=== PATIENT | male | born 2000 | race Caucasian/White ===

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

== ENCOUNTER 2021-08-02 02:30 | Emergency (ER) | payer MEDICAID, SELFPAY ==
[2021-08-02 02:39] VITALS: BMI 41.0
[2021-08-02 02:41] VITALS: BP 151/79; PULSE 78; RESP 16; TEMP 37.1; O2SAT 98
[2021-08-02 02:44] VITALS: BP 151/79
[2021-08-02] MEDS: fluorescein 1 mg Strip EYE-RIGHT (02:50)
[2021-08-02] MEDS: tetracaine 0.5% Op Soln 4 mL Btl 1 DROP EYE-RIGHT (02:50)
--- NOTE | 2021-08-02 02:51 | ED_ITS ---
HPI - Eye Problem General: Chief complaint: Eye Problems Stated complaint: Right eye swollen Time Seen by Provider: 08/02/21 02:45 Source: patient Mode of arrival: ambulatory Limitations: no limitations History of Present Illness: 20-year-old male that states that he fell like a bug flew in his eye roughly 30 minutes ago. He states he has been rubbing that eye and has been having some pain and erythema to the eye since then. Does have some slight lid swelling. Denies any change in his vision denies any pain currently. He has no drainage. He denies any worsening or improving factors. Associated symptoms: Denies fever(s), headache(s), nausea, neck pain or vomiting Review of Systems Const: Denies: fever(s), chills, body aches or change in appetite Eyes: Reports: eye discomfort ENMT: Denies: throat pain or dental pain Card: Denies: chest pain Resp: Denies: dyspnea GI: Denies: abdominal pain, nausea, vomiting or diarrhea : Denies: dysuria Musc: Denies: neck pain or back pain Skin/Breast: Denies: rash Neuro: Denies: headache(s) Psych: Denies: depression René/Lymph: Denies: easy bruising All/Imm: Denies: urticaria PFSH ED PFSH: Medical History Psoriasis Family History Mother Heart failure Father AAA (abdominal aortic aneurysm) Grandfather AAA (abdominal aortic aneurysm) Social History Smoking and tobacco status: former smoker Alcohol intake: never Physical Exam Const: COMMON NORMALS: no acute distress, patient oriented x3 and healthy appearing HENMT: COMMON NORMALS: normocephalic and atraumatic HEAD & SCALP: normocephalic and atraumatic Eye: COMMON NORMALS: Equal, round and reactive pupils present and EOMs intact bilaterally PUPIL: Yes Equal, round and reactive pupils present OTHER: Slight swelling to the right upper eyelid no erythema extraocular movements intact has some erythema to conjunctive a no abrasions or ulcers noted on fluorescein stain Neck/C-Spine: COMMON NORMALS: full ROM and supple Chest: COMMONS NORMALS: normal inspection of the chest Resp: COMMON NORMALS: normal respiratory effort Cardio: COMMON NORMALS: regular rate, regular rhythm and No murmurs present (Cardio) RATE: regular rate RHYTHM: regular rhythm GI: INSPECTION: Yes normal to inspection Extremity: COMMON NORMALS: normal to inspection and full ROM Neuro: COMMON NORMALS: patient oriented x3, moves all extremities and no focal motor deficits Psych: COMMON NORMALS: mental status grossly normal, Normal thought process present and cooperative THOUGHT PROCESS: Normal thought process present Skin: COMMON NORMALS: no rashes or lesions noted and no wounds GENERAL SKIN EXAM: no rashes or lesions noted Course Vital Signs: Vital signs: Vital Signs Temperature 98.8 F 08/02/21 02:41 Pulse Rate 78 08/02/21 02:41 Respiratory Rate 16 08/02/21 02:41 Blood Pressure 151/79 08/02/21 02:44 Pulse Oximetry 98 08/02/21 02:41 MDM - Eye Problem Medical Decision Making Patient presents here with right eye pain and swelling. He had a sensation of foreign body in the eye roughly 30 minutes ago. He does have some swelling of the eyelid could be slight allergic reaction does have erythema to his conjunctive as well no abrasions noted. We will give him Benadryl start him on erythromycin ointment. He has no signs of orbital or preseptal cellulitis. He is to follow-up PCP and return if worsening. Discharge Plan Discharge Patient Disposition: Home Clinical Impression: Eye swelling, right Condition: Stable Prescriptions: New erythromycin 5 mg/gram (0.5 %) ointment 1 applic ophthalmic (eye) Q8H 5 Days Qty: 3.5 0RF No Action amlodipine 10 mg tablet 10 mg PO DAILY 0RF hydrocortisone 2.5 % cream 1 applic topical BID Qty: 30 2RF Rx Instructions: to face no more than 2 wks / mo for flares clobetasol 0.05 % ointment 1 applic topical BID 14 Days Qty: 60 3RF Rx Instructions: to affected areas on arms and trunk no more than 2 wks/mo prn alternating with triamcinolone triamcinolone acetonide 0.1 % ointment 1 applic topical BID Qty: 453.6 1RF Rx Instructions: to arms and trunk BID alt. with clobetasol as needed for flares no more than 2 wks/mo Discharge Orders: Discharge ED (Routine); Ordered 08/02/21 Ordered By: Krisat Rollins Referrals: Moon Amaral DO [Primary Care Provider] - 1-3 days Discharge Diet: Advance as tolerated Discharge Activity: Resume usual activity Patient Instructions: Eye Pain (ED) Coding Level of Care Code ED Tufter Operator for Donna Perry
[2021-08-02] MEDS: diphenhydrAMINE 50 mg Capsule PO (02:57)
== END 2021-08-02 02:58 | disposition home or self-care (01) ==
PROVIDERS: Emergency Provider Emergency Medicine; PCP Family Medicine
DX: H57.89 Other specified disorders of eye and adnexa (principal); Z87.891 Personal history of nicotine dependence
CPT/HCPCS: 99283; Q0163

== ENCOUNTER 2022-05-13 14:44 | Emergency (ER) | payer MEDICAID, SELFPAY ==
[2022-05-13 14:51] VITALS: BP 155/92; PULSE 92; RESP 18; TEMP 36.7; O2SAT 100
--- NOTE | 2022-05-13 14:54 | ECG_ITS ---
[facility] Test Date: 2022-05-13 Pat Name: Agustin Cedeno Department: Room: Gender: Male Bending Roll Hand: : 2000 Requested By: Song Adorno Order Number: [id number] Gene MD: Bam Khan Measurements Intervals [place] Rate: 88 P: 52 CA: 148 QRS: 52 QRSD: 88 T: 50 QT: 344 QTc: 417 Interpretive Statements SINUS RHYTHM POSSIBLE ANTERIOR MYOCARDIAL INFARCTION , OF INDETERMINATE AGE [30 ms Q WAVE IN V3/V4, OR R < 0.2 mV IN V4] INTERPRETATION BASED ON A DEFAULT AGE OF 40 YEARS Compared to ECG 01/12/2018 23:18:26 Myocardial infarct finding now present Electronically Signed On 05-14-2022 19:01:45 CDT by Bam Khan [id number]
--- NOTE | 2022-05-13 15:01 | XRR_ITS ---
PROCEDURE INFORMATION: Exam: XR Chest Exam date and time: 05/13/2022 3:04 PM Age: 21 years old Clinical indication: Other: Chest pain; Additional info: Dyspnea/cough TECHNIQUE: Imaging protocol: Radiologic exam of the chest. Views: 1 view. COMPARISON: CR XR chest 2V* [id number] 01/12/2018 11:10 PM FINDINGS: Lungs: Unremarkable. No consolidation. Pleural spaces: Unremarkable. No pleural effusion. No pneumothorax. Heart/Mediastinum: Unremarkable. No cardiomegaly. Bones/joints: Unremarkable. XR/XR chest 1V portable [id number] IMPRESSION: No acute findings.
--- NOTE | 2022-05-13 15:06 | ED_ITS ---
HPI - Chest Pain General: Chief Complaint: Chest Pain Stated Complaint: CP Time Seen by Provider: 05/13/22 14:57 Source: patient Mode of arrival: ambulatory History of Present Illness: 21-year-old male presents emergency complaining of chest pain rating up center of his chest towards his neck. Is been going on for the last several days has not noticed anything that exacerbates or relieves it he does not get particular diaphoretic or short of breath or nauseous with it. No known history of coronary artery disease. He does have a history of psoriasis he is on amlodipine for hypertension. MD complaint: chest pain Onset (ago): day(s) Timing of current episode: episodic Prior episodes: Yes Onset: during rest Pain location: substernal Pain radiation: neck Severity: mild Quality: aching and heaviness Relieving factors: nothing Exacerbating factors: nothing Associated symptoms: Deny abdominal pain, diaphoresis, dyspnea, fever(s), leg edema, nausea, palpitations, sense of impending doom, syncope or vomiting Review of Systems Const: Denies: fever(s), chills, fatigue, malaise or diaphoresis ENMT: Denies: throat pain, ear or mastoid pain, nasal discharge or nasal congestion Card: Reports: chest pain; Denies: palpitations, irregular heart rhythm, edema or syncope Resp: Denies: dyspnea GI: Denies: abdominal pain, nausea or vomiting : Denies: flank pain, dysuria, urinary frequency or urinary urgency Skin/Breast: Denies: rash or pruritus PFSH ED PFSH: Medical History Psoriasis Family History Mother Heart failure Father AAA (abdominal aortic aneurysm) Grandfather AAA (abdominal aortic aneurysm) Social History Smoking and tobacco status: former smoker Alcohol intake: never Physical Exam Const: GENERAL APPEARANCE: cooperative and comfortable ORIENTATION/CONSCIOUSNESS: Yes awake, Yes oriented to person, Yes oriented to place and Yes oriented to time HENMT: COMMON NORMALS: normocephalic, atraumatic and hearing grossly normal bilaterally HEAD & SCALP: normocephalic and atraumatic Resp: COMMON NORMALS: normal respiratory effort, No retractions, No use of accessory muscles and clear to auscultation bilaterally AUSCULTATION: clear to auscultation bilaterally Cardio: COMMON NORMALS: regular rate, regular rhythm and No murmurs present (Cardio) RATE: regular rate RHYTHM: regular rhythm GI: COMMON NORMALS: Soft to palpation and No hepatosplenomegaly present AUSCULTATION: Yes normoactive bowel sounds PALPATION: Yes Soft to palpation, No Tenderness to palpation present (GI), No Guarding due to palpation present (GI) and Yes No hepatosplenomegaly present Extremity: COMMON NORMALS: normal to inspection, capillary refill normal, no clubbing, cyanosis or edema, no calf tenderness and no pedal edema Neuro: SENSORIUM/ORIENTATION: Yes oriented to person, Yes oriented to place and Yes oriented to time Skin: COMMON NORMALS: no rashes or lesions noted GENERAL SKIN EXAM: no rashes or lesions noted Course Vital Signs: Vital signs: Vital Signs Temperature 98.1 F 05/13/22 14:51 Pulse Rate 78 05/13/22 16:38 Respiratory Rate 18 05/13/22 16:38 Blood Pressure 132/78 05/13/22 16:38 Pulse Oximetry 99 05/13/22 15:09 Oxygen Delivery Me thod 05/13/22 14:51 MDM - Chest Pain Medical Decision Making Atypical chest pain troponin is negative EKG is unremarkable. Discharge patient home start him on Protonix and recheck with his primary care doctor. Medical Records I reviewed the patient's medical records. Lab Data I reviewed the patient's lab results. 05/13/22 15:02 05/13/22 15:02 Radiology Impressions Chest X-Ray 05/13/22 15:01 IMPRESSION: No acute findings. Laboratory Results WBC 8.1 10^3/uL (4.5-13.0) 05/13/22 15:02 RBC 5.51 10^6/uL (4.1-5.3) H 05/13/22 15:02 Hgb 15.8 g/dL (11.7-16.6) 05/13/22 15:02 Hct 46.2 % (42.0-52.0) 05/13/22 15:02 MCV 83.8 fl (80-94) 05/13/22 15:02 MCH 28.7 pg (28.0-34.0) 05/13/22 15:02 MCHC 34.2 g/dL (30.0-36.0) 05/13/22 15:02 RDW 12.1 % (12.1-15.1) 05/13/22 15:02 Plt Count 299 10^3/cmm (130-400) 05/13/22 15:02 MPV 11.2 fL (7.4-10.4) H 05/13/22 15:02 Neut % (Auto) 56.0 % 05/13/22 15:02 Lymph % (Auto) 29.8 % 05/13/22 15:02 [place] % (Auto) 9.5 % 05/13/22 15:02 Eos % (Auto) 3.7 % 05/13/22 15:02 Baso % (Auto) 0.6 % 05/13/22 15:02 Neut # (Auto) 4.53 10^3/uL (1.8-8.0) 05/13/22 15:02 Lymph # (Auto) 2.4 10^3/uL (1.5-6.5) 05/13/22 15:02 [place] # (Auto) 0.8 10^3/uL (0.2-0.9) 05/13/22 15:02 Eos # (Auto) 0.3 10^3/uL (0.0-0.8) 05/13/22 15:02 Baso # (Auto) 0.1 10^3/uL (0.0-0.1) 05/13/22 15:02 Nucleated RBC % (auto) 0 % 05/13/22 15:02 Nucleated RBCs # 0.0 /100WBC 05/13/22 15:02 Sodium 136 mmol/L (136-145) 05/13/22 15:02 Potassium 3.6 mmol/L (3.5-5.1) 05/13/22 15:02 Chloride 100 mmol/L (98-107) 05/13/22 15:02 Carbon Dioxide 25 mmol/L (22-29) 05/13/22 15:02 Anion Gap 14.6 (5-19) 05/13/22 15:02 BUN 13 mg/dL (6-20) 05/13/22 15:02 Creatinine 0.8 mg/dL (0.7-1.2) 05/13/22 15:02 GFR Calculation 123.2 mL/min (90-130) 05/13/22 15:02 Glucose 86 mg/dL (65-115) 05/13/22 15:02 Calculated Osmolality 281 mOsm/kg (285-295) L 05/13/22 15:02 Calcium 9.0 mg/dL (8.5-10.5) 05/13/22 15:02 Total Bilirubin 0.4 mg/dL (0.15-1.2) 05/13/22 15:02 AST 22 U/L (0-40) 05/13/22 15:02 ALT 26 U/L (0-41) 05/13/22 15:02 Alkaline Phosphatase 86 U/L (40-130) 05/13/22 15:02 Troponin T Gen 5 ng/L 6 ng/L (0-15) 05/13/22 15:02 Total Protein 7.8 g/dL (6.6-8.7) 05/13/22 15:02 Albumin 4.4 g/dL (3.5-5.2) 05/13/22 15:02 Globulin 3.4 g/dL (1.3-4.6) 05/13/22 15:02 Discharge Plan Discharge Patient Disposition: Home Clinical Impression: Atypical chest pain Condition: Stable Prescriptions: New pantoprazole 40 mg tablet,delayed release (DR/EC) 40 mg PO QAM 28 Days Qty: 28 0RF No Action amlodipine 10 mg tablet 10 mg PO DAILY hydrocortisone 2.5 % cream 1 applic topical BID Qty: 30 2RF Rx Instructions: to face no more than 2 wks / mo for flares clobetasol 0.05 % ointment 1 applic topical BID 14 Days Qty: 60 3RF Rx Instructions: to affected areas on arms and trunk no more than 2 wks/mo prn alternating with triamcinolone triamcinolone acetonide 0.1 % ointment 1 applic topical BID Qty: 453.6 1RF Rx Instructions: to arms and trunk BID alt. with clobetasol as needed for flares no more than 2 wks/mo Discharge Orders: Discharge ED (Routine); Ordered 05/13/22 Ordered By: Song Cheng Referrals: Moon Amaral, [Primary Care Provider] - Discharge Diet: Usual diet Discharge Activity: Increase activity as tolerated Patient Instructions: Opioid Safety, Pain Management Activity Restrictions/Additional Instructions: You are seen today for chest pain your chest x-ray EKG and laboratory tests were unremarkable. Recommend you can continue your current medications for your blood pressure recheck with your primary care doctor within the next week we will also add a medicine for your stomach pantoprazole 40 mg daily if any worsening or change symptoms return. Coding Level of Care Code ED Research Administrator for Donna Perry
[2022-05-13 15:09] VITALS: BP 162/89; PULSE 95; RESP 16; O2SAT 99
[2022-05-13 15:11] LABS: Basophils # 0.1 10^3/uL (0.0-0.1); Basophils % 0.6 %; Eosinophils # 0.3 10^3/uL (0.0-0.8); Eosinophils % 3.7 %; Hematocrit 46.2 % (42.0-52.0); Hemoglobin 15.8 g/dL (11.7-16.6); Lymphocytes # 2.4 10^3/uL (1.5-6.5); Lymphocytes % 29.8 %; Mean Corpuscular HGB Conc 34.2 g/dL (30.0-36.0); Mean Corpuscular Hemoglobin 28.7 pg (28.0-34.0); Mean Corpuscular Volume 83.8 fl (80-94); Mean Platelet Volume 11.2 fL (7.4-10.4); Monocytes # 0.8 10^3/uL (0.2-0.9); Monocytes % 9.5 %; Neutrophils # 4.53 10^3/uL (1.8-8.0); Nucleated Red Blood Cells % 0 %; Platelet Count 299 10^3/cmm (130-400); Red Blood Count 5.51 10^6/uL (4.1-5.3); Red Cell Distribution Width 12.1 % (12.1-15.1); White Blood Count 8.1 10^3/uL (4.5-13.0)
[2022-05-13] MEDS: lidocaine 2% viscous 15 ML, aluminum-mag hydrox-simethicon 30 ML, sucralfate oral liq 1 GM PO (15:32)
[2022-05-13 15:40] LABS: Alanine Aminotransferase 26 U/L (0-41); Albumin Level 4.4 g/dL (3.5-5.2); Alkaline Phosphatase 86 U/L (40-130); Aspartate Amino Transferase 22 U/L (0-40); Blood Urea Nitrogen 13 mg/dL (6-20); Carbon Dioxide 25 mmol/L (22-29); Chloride 100 mmol/L (98-107); Globulin 3.4 g/dL (1.3-4.6); Glomerular Filtration Rate 123.2 mL/min (90-130); Glucose 86 mg/dL (65-115); Osmolality Calculated 281 mOsm/kg (285-295); Sodium 136 mmol/L (136-145); Total Bilirubin 0.4 mg/dL (0.15-1.2); Total Protein 7.8 g/dL (6.6-8.7)
[2022-05-13 15:41] LABS: Troponin T (5th) Once 6 ng/L (0-15)
[2022-05-13 15:42] LABS: Anion Gap 14.6 (5-19); Potassium 3.6 mmol/L (3.5-5.1)
[2022-05-13 16:38] VITALS: BP 132/78; PULSE 78; RESP 18
== END 2022-05-13 16:40 | disposition home or self-care (01) ==
PROVIDERS: Emergency Provider Family Medicine; PCP Family Medicine
DX: R07.89 Other chest pain (principal); Z87.891 Personal history of nicotine dependence
CPT/HCPCS: 71045; 80053; 84484; 85025; 93005; 99285

== ENCOUNTER 2022-08-21 20:34 | Emergency (ER) | payer MEDICAID, SELFPAY ==
[2022-08-21 20:36] VITALS: BP 161/80; PULSE 98; RESP 18; TEMP 37.1; O2SAT 97; BMI 44.1
--- NOTE | 2022-08-21 20:53 | W.ED.SKABFB ---
HPI - Skin/Abscess/Foreign Bdy General: Chief complaint: Skin/Abscess/Foreign Body Stated complaint: Rash on arms and back Time Seen by Provider: 08/21/22 20:45 Source: patient Mode of arrival: ambulatory Limitations: no limitations History of Present Illness: Patient presents emergency department today for evaluation treatment of burning, itching, and urticaria of the skin. Patient states he was outside in the field and went to lay down. He states after only 3 or 4 seconds on the ground he felt sharp senior managing director his neck and had instant pain and poking sensation down his back. Patient then developed itching and painful spots/whelps on his extremities and his back. Patient denies difficulty breathing. He states he is only ever had an allergic reaction to penicillin in the past. Review of Systems General: Reports: 10 or more systems reviewed and unremarkable except in HPI and below PFSH ED PFSH: Medical History Psoriasis Family History Mother Heart failure Father AAA (abdominal aortic aneurysm) Grandfather AAA (abdominal aortic aneurysm) Social History Smoking and tobacco status: former smoker Alcohol intake: never Substance/Drug Use: never Physical Exam Const: COMMON NORMALS: no acute distress, average body habitus and patient oriented x3 HENMT: COMMON NORMALS: normocephalic, atraumatic, hearing grossly normal bilaterally, Normal external nose present and moist oral mucous membranes HEAD & SCALP: normocephalic and atraumatic NOSE: Normal external nose present Eye: COMMON NORMALS: Equal, round and reactive pupils present, EOMs intact bilaterally and conjunctivae normal CONJUNCTIVA: Yes conjunctivae normal PUPIL: Yes Equal, round and reactive pupils present Neck/C-Spine: COMMON NORMALS: no JVD Lymph: LYMPHATIC: no lymphadenopathy noted Resp: COMMON NORMALS: normal respiratory effort, No retractions and No use of accessory muscles Cardio: COMMON NORMALS: no JVD, regular rate and regular rhythm RATE: regular rate RHYTHM: regular rhythm GI: COMMON NORMALS: Normal to inspection, nondistended, normoactive bowel sounds present : COMMON NORMALS: Yes no CVA tenderness BLADDER/KIDNEY EXAM: Yes no CVA tenderness Back/Pelvis: COMMON NORMALS: no CVA tenderness and thoraco-lumbar ROM normal Extremity: COMMON NORMALS: normal to inspection, full ROM and capillary refill normal Neuro: COMMON NORMALS: patient oriented x3 Psych: COMMON NORMALS: mental status grossly normal, Normal thought process present, cooperative, normal affect and activity/motor behavior normal THOUGHT PROCESS: Normal thought process present Skin: NARRATIVE SKIN EXAM: Patient has diffuse urticaria along his back and upper extremities. No angioedema. Patient also has what appears to be psoriasis on his forearms bilaterally. Course Vital Signs: Vital signs: Vital Signs Temperature 98.7 F 08/21/22 20:36 Pulse Rate 98 08/21/22 20:36 Respiratory Rate 18 08/21/22 20:36 Blood Pressure 161/80 08/21/22 20:36 Pulse Oximetry 97 08/21/22 20:36 Oxygen Delivery Me thod Room Air 08/21/22 20:36 MDM - Skin/Abscess/Foreign Bdy Medicial Decision Making Patient shows no signs of angioedema and airway appears preserved. At this time, I do not think epinephrine is required. However, due to the diffuse nature of the urticaria we did treat with IV medication. Patient was observed for approximately 30 minutes after IV administration and had significant if not near complete resolution of symptoms with treatment. We did discuss rebound and the need for continued treatment for the next few days. Patient was given a prescription for Pepcid and prednisone and encouraged antihistamine use as well. Gave him strict return precautions. He is to go home and shower and wash all clothing items that were worn in the field this evening. Patient verbalized understanding and agreement to treatment plan. Differential Diagnosis Likely viral exanthem, dermatophytosis, urticaria, eczema, insect bites and contact dermatitis Discharge Plan Discharge Patient Disposition: Home Clinical Impression: Urticaria Condition: Stable Prescriptions: New prednisone 20 mg tablet 20 mg PO BID 5 Days Qty: 10 0RF Pepcid 20 mg tablet 20 mg PO BID 5 Days Qty: 10 0RF No Action amlodipine 10 mg tablet 10 mg PO DAILY hydrocortisone 2.5 % cream 1 applic topical BID Qty: 30 2RF Rx Instructions: to face no more than 2 wks / mo for flares clobetasol 0.05 % ointment 1 applic topical BID 14 Days Qty: 60 3RF Rx Instructions: to affected areas on arms and trunk no more than 2 wks/mo prn alternating with triamcinolone triamcinolone acetonide 0.1 % ointment 1 applic topical BID Qty: 453.6 1RF Rx Instructions: to arms and trunk BID alt. with clobetasol as needed for flares no more than 2 wks/mo Discharge Orders: Discharge ED (Routine); Ordered 08/21/22 Ordered By: Theresa Salazar Referrals: Moon Amaral DO [Primary Care Provider] - Discharge Diet: Usual diet Discharge Activity: Increase activity as tolerated Patient Instructions: Contact Dermatitis (ED) Activity Restrictions/Additional Instructions: Take a shower as soon as you get home and be sure that you wash any hats, clothing items, shoes, socks, etc. that you have been wearing out in the field today. Due to the possibility of a return of your reaction as the medication begins to wear off, we are treating you for the next several days. In addition to the medication provided to you we also recommend taking a daily Zyrtec/Ailyn/Claritin in addition to Benadryl. Be aware the Benadryl can make you drowsy and tired. If for any reason you have return of swelling-especially swelling of the face, lips, tongue, or throat or any difficulty breathing you need to be seen and reevaluated in the ER. Coding Level of Care Code ED Meat Processing Center Manager for Donna Perry
[2022-08-21] MEDS: diphenhydrAMINE 50 mg/mL SDV 1mL IVP (20:54)
[2022-08-21] MEDS: dexamethasone 10 mg/mL INJ IM (20:54)
[2022-08-21] MEDS: famotidine 20 mg/2 mL INJ 40 MG IVP (20:54)
== END 2022-08-21 22:32 | disposition home or self-care (01) ==
PROVIDERS: Emergency Provider Physician Assistant; PCP Family Medicine
DX: L50.9 Urticaria, unspecified (principal); Z87.891 Personal history of nicotine dependence
CPT/HCPCS: 96372; 96374; 96375; 99284; J1100; J1200; J3490

== ENCOUNTER 2022-12-17 21:49 | Emergency (ER) | payer MEDICAID, SELFPAY ==
[2022-12-17 21:55] VITALS: PULSE 78; RESP 18; TEMP 36.7; O2SAT 99; BMI 42.5
[2022-12-17 22:40] VITALS: BP 195/105; PULSE 95; RESP 15; O2SAT 98
--- NOTE | 2022-12-17 23:15 | ED_ITS ---
HPI - Dental/Oral General: Chief complaint: Dental/Oral Stated complaint: dental pain Time Seen by Provider: 12/17/22 22:20 History of Present Illness: Patient is a 22-year-old male with a past medical history significant for hypertension who presents to the emergency department for evaluation of left upper dental pain. Patient reports that he has had a cracked tooth for some time now, however, today he started to develop dental pain. He currently rates his pain as a 6 out of 10 in severity that he describes as a throbbing sensation. admits to associated nausea. Patient states that he does have an appointment with a dentist in January. He denies fever, chills, excessive drooling, painful tongue movements, throat swelling, difficulty breathing, lightheadedness, dizziness, or any other associated symptoms. No other complaints at this time. Associated symptoms: Denies ear or mastoid pain, fever(s) or odynophagia Review of Systems General: Reports: 10 or more systems reviewed and unremarkable except in HPI and below Const: Denies: fever(s) or chills Eyes: Denies: change in vision, blurry vision, eye discharge or eye redness ENMT: Reports: dental pain; Denies: throat pain, odynophagia, ear or mastoid pain or ear discharge Card: Denies: chest pain or palpitations Resp: Denies: dyspnea, productive cough, non-productive cough or wheezing GI: Denies: abdominal pain, nausea, vomiting, diarrhea or constipation : Denies: dysuria Musc: Denies: neck pain, back pain or extremity pain Skin/Breast: Denies: rash Neuro: Denies: headache(s), numbness in extremities or weakness in extremities PFSH ED PFSH: Medical History Psoriasis Family History Mother Heart failure Father AAA (abdominal aortic aneurysm) Grandfather AAA (abdominal aortic aneurysm) Social History Smoking and tobacco/nicotine status: former use of tobacco/nicotine Alcohol intake: never Substance/Drug Use: never Physical Exam Const: COMMON NORMALS: no acute distress and patient oriented x3 HENMT: OTHER: Tenderness to palpation of approximately the 26 tooth. Posterior oropharynx clear without swelling, lesions, erythema, or exudates. No swelling or erythema is noted to tongue or floor of the mouth. No evidence of Juvenal's angina, retropharyngeal abscess, or peritonsillar abscess Eye: COMMON NORMALS: Equal, round and reactive pupils present, EOMs intact bilaterally and conjunctivae normal CONJUNCTIVA: Yes conjunctivae normal PUPIL: Yes Equal, round and reactive pupils present Neck/C-Spine: COMMON NORMALS: full ROM, no lymphadenopathy and supple Chest: COMMONS NORMALS: normal inspection of the chest Resp: COMMON NORMALS: normal respiratory effort, No retractions, No use of accessory muscles and clear to auscultation bilaterally AUSCULTATION: clear to auscultation bilaterally Cardio: COMMON NORMALS: regular rate, regular rhythm, No gallops present (Cardio), No clicks present (Cardio), No murmurs present (Cardio) and No rub (Cardio) RATE: regular rate RHYTHM: regular rhythm Extremity: OTHER: Moving bilateral upper and lower extremities without weakness or deficit. Neuro: COMMON NORMALS: patient oriented x3 OTHER: Sensation intact in the bilateral upper and lower extremities. Course Vital Signs: Vital signs: Vital Signs Temperature 98.1 F 12/17/22 21:55 Pulse Rate 95 12/17/22 22:40 Respiratory Rate 15 12/17/22 22:40 Blood Pressure 195/105 12/17/22 22:40 Pulse Oximetry 98 12/17/22 22:40 Oxygen Delivery Me thod Room Air 12/17/22 22:40 MDM - Dental/Oral Medical Decision Making On physical examination patient is nontoxic and in no acute distress. Vital signs remained stable throughout the ED course. Patient is afebrile. On exam no evidence of retropharyngeal abscess, peritonsillar abscess, or Juvenal angina. I will treat with antibiotics and have the patient follow-up with a local dentist. Patient stated understanding of all discharge instructions and was agreeable to the plan of care. Differential diagnosis includes but is not limited to periapical abscess, retropharyngeal abscess, peritonsillar abscess, Juvenal angina, cracked tooth, gingivitis No radiology studies performed this visit Discharge Plan Discharge Patient Disposition: Home Clinical Impression: Dental infection Condition: Stable Prescriptions: New diclofenac sodium 75 mg tablet,delayed release (DR/EC) 75 mg PO BID 5 Days Qty: 10 0RF clindamycin HCl 300 mg capsule 300 mg PO TID 7 Days Qty: 21 0RF No Action amlodipine 10 mg tablet 10 mg PO DAILY hydrocortisone 2.5 % cream 1 applic topical BID Qty: 30 2RF Rx Instructions: to face no more than 2 wks / mo for flares clobetasol 0.05 % ointment 1 applic topical BID 14 Days Qty: 60 3RF Rx Instructions: to affected areas on arms and trunk no more than 2 wks/mo prn alternating with triamcinolone triamcinolone acetonide 0.1 % ointment 1 applic topical BID Qty: 453.6 1RF Rx Instructions: to arms and trunk BID alt. with clobetasol as needed for flares no more than 2 wks/mo amlodipine 5 mg tablet 5 mg Discharge Orders: Discharge ED (Routine); Ordered 12/17/22 Ordered By: Andrei An Referrals: Moon Amaral DO [Primary Care Provider] - Patient Instructions: Dental Abscess (ED) Activity Restrictions/Additional Instructions: A prescription of diclofenac was sent to pharmacy to be picked up. Take medication as prescribed. Do not take ibuprofen or other nonsteroidal anti- inflammatories while taking this medication. Take antibiotic as prescribed. Follow-up with a dentist as soon as possible. Call your primary care provider tomorrow with an update of your symptoms and to schedule appointment for further management/evaluation. Return to the emergency department for any rapid or worsening symptoms to include but not limited to difficulties breathing, excessive drooling, throat swelling, fever, lightheadedness, dizziness, nausea, vomiting, or as needed. Coding Level of Care Code ED Production Counter for Donna Perry
[2022-12-17] MEDS: clindamycin 150 mg Capsule 300 MG PO (23:23)
[2022-12-17] MEDS: ketorolac 30 mg/mL INJ IM (23:23)
[2022-12-17 23:38] VITALS: BP 177/88; PULSE 95; RESP 15; O2SAT 98
== END 2022-12-17 23:38 | disposition home or self-care (01) ==
PROVIDERS: Emergency Provider Physician Assistant; PCP Family Medicine
DX: K04.7 Periapical abscess without sinus (principal); Z87.891 Personal history of nicotine dependence
CPT/HCPCS: 96372; 99284; J1885

== ENCOUNTER 2023-07-09 23:24 | Emergency (ER) | payer MEDICAID, SELFPAY ==
[2023-07-09 23:33] VITALS: BP 154/104; PULSE 94; RESP 15; TEMP 36.7; O2SAT 99; BMI 42.5
--- NOTE | 2023-07-09 23:42 | ECG_ITS ---
[facility] Test Date: 2023-07-10 Pat Name: Agustin Cedeno Department: Room: Gender: Male [employer]: : 2000 Requested By: Bo Serrano Order Number: [id number] Mills MD: Neo Sandra M.D. Measurements Intervals [place] Rate: 83 P: 40 OK: 183 QRS: 37 QRSD: 83 T: 32 QT: 354 QTc: 416 Interpretive Statements SINUS RHYTHM Compared to ECG 05/13/2022 14:50:47 Myocardial infarct finding no longer present Electronically Signed On 07-10-2023 16:53:03 CDT by Neo Sandra M.D. [id number]
--- NOTE | 2023-07-09 23:42 | XRR_ITS ---
PROCEDURE INFORMATION: Exam: XR Chest Exam date and time: 07/09/2023 11:48 PM Age: 22 years old Clinical indication: Angina; Additional info: Cp/htn TECHNIQUE: Imaging protocol: Radiologic exam of the chest. Views: 1 view. COMPARISON: CR XR chest 1V portable [id number] 05/13/2022 3:04 PM FINDINGS: Lungs: Unremarkable. No consolidation. Pleural spaces: Unremarkable. No pleural effusion. No pneumothorax. Heart/Mediastinum: Unremarkable. No cardiomegaly. Bones/joints: Unremarkable. XR/XR chest 1V portable [id number] IMPRESSION: No acute findings.
[2023-07-09 23:43] VITALS: BP 154/104; PULSE 80; RESP 19; O2SAT 98
--- NOTE | 2023-07-09 23:43 | ED_ITS ---
Documented by User: [email or web address] Maloney 07/10/23 00:48 HPI - General Adult 2 General: Chief complaint: General Medical Stated complaint: high BP Time Seen by Provider: 07/09/23 23:26 Source: patient Mode of arrival: ambulatory Limitations: no limitations History of Present Illness: Patient is a 22-year-old male who presents to the emergency department complaining of high blood pressure readings onset today. Patient states that he had sudden onset of a headache as well as a discomfort in his chest, and took his blood pressure that read 180/90. He is currently prescribed amlodipine 10 mg to take at night, though he ran out yesterday. He did not take his dose tonight, but states he found an old bottle of metoprolol and took 1 of these. He states that he still has a minor headache, and he thinks that the machine that took his blood pressure is old, but he states that he came in just for precautionary purposes. He notes that he needs to call his primary care tomorrow to get a refill of his amlodipine. He is denying any breathing difficulties, peripheral edema, palpitations, visual changes, vomiting, abdominal pain, or other symptoms at this time. He states that he gets chest pains similar to the ones today frequently, stating that it is just musculoskeletal due to lifting. He states his blood pressure is normally 140/70. MD complaint: High blood pressure reading Onset (ago): hour(s) Associated symptoms: Reports chest pain ( Discomfort ) and headache(s); Deny dyspnea, nausea, rash, palpitations or vomiting Review of Systems 2 General: Reports: 10 or more systems reviewed and unremarkable except in HPI and below Const: Denies: fever(s), chills or fatigue Eyes: Denies: change in vision ENMT: Denies: throat pain, ear or mastoid pain or nasal discharge Card: Reports: chest pain ( Discomfort ) and other (High blood pressure); Denies: palpitations, swelling of feet/ankles or lightheadedness Resp: Denies: dyspnea, productive cough or wheezing GI: Denies: abdominal pain, nausea, vomiting, diarrhea or constipation : Denies: flank pain, difficulty urinating, dysuria or urinary frequency Musc: Denies: neck pain, back pain or joint pain Skin/Breast: Denies: rash Neuro: Reports: headache(s); Denies: numbness in extremities or weakness in extremities PFSH ED 2 PFSH: Medical History Psoriasis Family History Mother Heart failure Father AAA (abdominal aortic aneurysm) Grandfather AAA (abdominal aortic aneurysm) Social History Smoking and tobacco/nicotine status: former use of tobacco/nicotine Alcohol intake: never Substance/Drug Use: never Physical Exam 2 Const: COMMON NORMALS: no acute distress, patient oriented x3 and no limitations GENERAL APPEARANCE: cooperative, comfortable and well developed NUTRITIONAL APPEARANCE: obese ORIENTATION/CONSCIOUSNESS: Yes awake, Yes oriented to person, Yes oriented to place and Yes oriented to time HENMT: COMMON NORMALS: normocephalic, atraumatic and hearing grossly normal bilaterally HEAD & SCALP: normocephalic and atraumatic Eye: COMMON NORMALS: Equal, round and reactive pupils present, EOMs intact bilaterally and conjunctivae normal CONJUNCTIVA: Yes conjunctivae normal P UPIL: Yes Equal, round and reactive pupils present Neck/C-Spine: COMMON NORMALS: full ROM, supple and no JVD Resp: COMMON NORMALS: normal respiratory effort, No retractions, No use of accessory muscles and clear to auscultation bilaterally AUSCULTATION: clear to auscultation bilaterally Cardio: COMMON NORMALS: no JVD, regular rate, regular rhythm, No clicks present (Cardio), No murmurs present (Cardio) and No rub (Cardio) RATE: r egular rate RHYTHM: regular rhythm GI: COMMON NORMALS: Normal to inspection, nondistended, normoactive bowel sounds present, Soft to palpation and non-tender AUSCULTATION: Yes normoactive bowel sounds PALPATION: Yes Soft to palpation RECTAL EXAM: Yes deferred Extremity: COMMON NORMALS: normal to inspection, full ROM and capillary refill normal Neuro: COMMON NORMALS: patient oriented x3, moves all extremities, no focal motor deficits and no sensory deficits noted SENSORIUM/ORIENTATION: Yes oriented to person, Yes oriented to place and Yes oriented to time Psych: COMMON NORMALS: mental status grossly normal and Normal thought process present THOUGHT PROCESS: Normal thought process present Skin: NARRATIVE SKIN EXAM: Chronic psoriatic changes noted to bilateral upper extremities Course 2 Vital Signs: Vital signs: Vital Signs Temperature 98.1 F 07/09/23 23:33 Pulse Rate 79 07/10/23 01:24 Respiratory Rate 16 07/10/23 01:24 Blood Pressure 154/104 07/10/23 01:24 Pulse Oximetry 98 07/10/23 01:24 Oxygen Delivery Me thod Room Air 07/09/23 23:33 MDM - General Adult Medical Decision Making Patient seen in the emergency department for evaluation of hypertension. On arrival blood pressure noted to be slightly elevated, but only minimally elevated compared to patient's normal. He does note that he missed his dose of amlodipine tonight, and states he will get it refilled tomorrow. Lab work unremarkable, EKG normal, and chest x-ray did not demonstrate any acute cardiopulmonary processes. Reasons to return thoroughly discussed, and patient will be discharged home. Lab Data 07/09/23 00:00 07/09/23 00:00 Radiology Impressions Chest X-Ray 07/09/23 23:42 IMPRESSION: No acute findings. Laboratory Results WBC 9.16 10^3/uL (3.29-11.43) 07/09/23 00:00 RBC 5.41 10^6/uL (3.85-5.65) 07/09/23 00:00 Hgb 15.50 g/dL (11.27-16.99) 07/09/23 00:00 Hct 44.9 % (37-53) 07/09/23 00:00 MCV 83.0 fl (82-101) 07/09/23 00:00 MCH 28.7 pg (27-33) 07/09/23 00:00 MCHC 34.5 g/dL (30-55) 07/09/23 00:00 RDW 12.0 % (12.1-15.1) L 07/09/23 00:00 Plt Count 258 10^3/cmm (157-399) 07/09/23 00:00 MPV 11.6 fL (7.4-10.4) H 07/09/23 00:00 Neut % (Auto) 63.7 % 07/09/23 00:00 Lymph % (Auto) 28.9 % 07/09/23 00:00 [place] % (Auto) 4.7 % 07/09/23 00:00 Eos % (Auto) 2.1 % 07/09/23 00:00 Baso % (Auto) 0.3 % 07/09/23 00:00 Neut # (Auto) 5.83 10^3/uL (1.8-7.7) 07/09/23 00:00 Lymph # (Auto) 2.7 10^3/uL (0.8-4.8) 07/09/23 00:00 [place] # (Auto) 0.4 10^3/uL (0.2-0.9) 07/09/23 00:00 Eos # (Auto) 0.2 10^3/uL (0.0-0.8) 07/09/23 00:00 Baso # (Auto) 0.0 10^3/uL (0.0-0.1) 07/09/23 00:00 Nucleated RBC % (auto) 0 % 07/09/23 00:00 Nucleated RBCs # 0.0 /100WBC 07/09/23 00:00 Sodium 138 mmol/L (136-145) 07/09/23 00:00 Potassium 3.8 mmol/L (3.5-5.1) 07/09/23 00:00 Chloride 100 mmol/L (98-107) 07/09/23 00:00 Carbon Dioxide 27 mmol/L (22-29) 07/09/23 00:00 Anion Gap 14.8 (5-19) 07/09/23 00:00 BUN 16 mg/dL (6-20) 07/09/23 00:00 Creatinine 1.0 mg/dL (0.7-1.2) 07/09/23 00:00 GFR Calculation 94.3 mL/min (90-130) 07/09/23 00:00 Glucose 95 mg/dL (65-115) 07/09/23 00:00 Calculated Osmolality 287 mOsm/kg (285-295) 07/09/23 00:00 Calcium 9.5 mg/dL (8.5-10.5) 07/09/23 00:00 Total Bilirubin 0.6 mg/dL (0.15-1.2) 07/09/23 00:00 AST 17 U/L (0-40) 07/09/23 00:00 ALT 16 U/L (0-41) 07/09/23 00:00 Alkaline Phosphatase 87 U/L (40-130) 07/09/23 00:00 Total Protein 8.0 g/dL (6.6-8.7) 07/09/23 00:00 Albumin 4.4 g/dL (3.5-5.2) 07/09/23 00:00 Globulin 3.6 g/dL (1.3-4.6) 07/09/23 00:00 All radiology interpretation(s) finalized by discharge Discharge Plan Discharge Patient Disposition: Home Clinical Impression: Hypertension Qualifiers: Hypertension type: primary hypertension Qualified Code(s): I10 - Essential (primary) hypertension Condition: Stable Prescriptions: No Action amlodipine 10 mg tablet 10 mg PO DAILY hydrocortisone 2.5 % cream 1 applic topical BID Qty: 30 2RF Rx Instructions: to face no more than 2 wks / mo for flares clobetasol 0.05 % ointment 1 applic topical BID 14 Days Qty: 60 3RF Rx Instructions: to affected areas on arms and trunk no more than 2 wks/mo prn alternating with triamcinolone triamcinolone acetonide 0.1 % ointment 1 applic topical BID Qty: 453.6 1RF Rx Instructions: to arms and trunk BID alt. 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 Follow-up with primary care for further outpatient management. Return with any new or worsening symptoms. Coding Level of Care Code ED Insurance Counselor for Chg Fwd Documented by User: Song Cheng DO 07/16/23 15:39 HPI - General Adult 2 General: Chief complaint: General Medical Stated complaint: high BP Time Seen by Provider: 07/09/23 23:26 COUNTS INCLUDE 234 BEDS AT [facility] ED 2 PFS: Medical History Psoriasis Family History Mother Heart failure Father AAA (abdominal aortic aneurysm) Grandfather AAA (abdominal aortic aneurysm) Social History Smoking and tobacco/nicotine status: former use of tobacco/nicotine Alcohol intake: never Substance/Drug Use: never Course 2 Vital Signs: Vital signs: Vital Signs Temperature 98.1 F 07/09/23 23:33 Pulse Rate 79 07/10/23 01:24 Respiratory Rate 16 07/10/23 01:24 Blood Pressure 154/104 07/10/23 01:24 Pulse Oximetry 98 07/10/23 01:24 Oxygen Delivery Me thod Room Air 07/09/23 23:33 MDM - General Adult Medical Decision Making Patient seen in the emergency department for evaluation of hypertension. On arrival blood pressure noted to be slightly elevated, but only minimally elevated compared to patient's normal. He does note that he missed his dose of amlodipine tonight, and states he will get it refilled tomorrow. Lab work unremarkable, EKG normal, and chest x-ray did not demonstrate any acute cardiopulmonary processes. Reasons to return thoroughly discussed, and patient will be discharged home. Chart reviewed Lab Data 07/09/23 00:00 07/09/23 00:00 Radiology Impressions Chest X-Ray 07/09/23 23:42 IMPRESSION: No acute findings. Laboratory Results WBC 9.16 10^3/uL (3.29-11.43) 07/09/23 00:00 RBC 5.41 10^6/uL (3.85-5.65) 07/09/23 00:00 Hgb 15.50 g/dL (11.27-16.99) 07/09/23 00:00 Hct 44.9 % (37-53) 07/09/23 00:00 MCV 83.0 fl (82-101) 07/09/23 00:00 MCH 28.7 pg (27-33) 07/09/23 00:00 MCHC 34.5 g/dL (30-55) 07/09/23 00:00 RDW 12.0 % (12.1-15.1) L 07/09/23 00:00 Plt Count 258 10^3/cmm (157-399) 07/09/23 00:00 MPV 11.6 fL (7.4-10.4) H 07/09/23 00:00 Neut % (Auto) 63.7 % 07/09/23 00:00 Lymph % (Auto) 28.9 % 07/09/23 00:00 [place] % (Auto) 4.7 % 07/09/23 00:00 Eos % (Auto) 2.1 % 07/09/23 00:00 Baso % (Auto) 0.3 % 07/09/23 00:00 Neut # (Auto) 5.83 10^3/uL (1.8-7.7) 07/09/23 00:00 Lymph # (Auto) 2.7 10^3/uL (0.8-4.8) 07/09/23 00:00 [place] # (Auto) 0.4 10^3/uL (0.2-0.9) 07/09/23 00:00 Eos # (Auto) 0.2 10^3/uL (0.0-0.8) 07/09/23 00:00 Baso # (Auto) 0.0 10^3/uL (0.0-0.1) 07/09/23 00:00 Nucleated RBC % (auto) 0 % 07/09/23 00:00 Nucleated RBCs # 0.0 /100WBC 07/09/23 00:00 Sodium 138 mmol/L (136-145) 07/09/23 00:00 Potassium 3.8 mmol/L (3.5-5.1) 07/09/23 00:00 Chloride 100 mmol/L (98-107) 07/09/23 00:00 Carbon Dioxide 27 mmol/L (22-29) 07/09/23 00:00 Anion Gap 14.8 (5-19) 07/09/23 00:00 BUN 16 mg/dL (6-20) 07/09/23 00:00 Creatinine 1.0 mg/dL (0.7-1.2) 07/09/23 00:00 GFR Calculation 94.3 mL/min (90-130) 07/09/23 00:00 Glucose 95 mg/dL (65-115) 07/09/23 00:00 Calculated Osmolality 287 mOsm/kg (285-295) 07/09/23 00:00 Calcium 9.5 mg/dL (8.5-10.5) 07/09/23 00:00 Total Bilirubin 0.6 mg/dL (0.15-1.2) 07/09/23 00:00 AST 17 U/L (0-40) 07/09/23 00:00 ALT 16 U/L (0-41) 07/09/23 00:00 Alkaline Phosphatase 87 U/L (40-130) 07/09/23 00:00 Total Protein 8.0 g/dL (6.6-8.7) 07/09/23 00:00 Albumin 4.4 g/dL (3.5-5.2) 07/09/23 00:00 Globulin 3.6 g/dL (1.3-4.6) 07/09/23 00:00 Discharge Plan Discharge Patient Disposition: Home Clinical Impression: Hypertension Qualifiers: Hypertension type: primary hypertension Qualified Code(s): I10 - Essential (primary) hypertension Condition: Stable Prescriptions: No Action amlodipine 10 mg tablet 10 mg PO DAILY hydrocortisone 2.5 % cream 1 applic topical BID Qty: 30 2RF Rx Instructions: to face no more than 2 wks / mo for flares clobetasol 0.05 % ointment 1 applic topical BID 14 Days Qty: 60 3RF Rx Instructions: to affected areas on arms and trunk no more than 2 wks/mo prn alternating with triamcinolone triamcinolone acetonide 0.1 % ointment 1 applic topical BID Qty: 453.6 1RF Rx Instructions: to arms and trunk BID alt. 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 Follow-up with primary care for further outpatient management. Return with any new or worsening symptoms. Coding Level of Care Code ED Insurance Counselor for Donna Perry
[2023-07-10 00:06] LABS: Basophils % 0.3 %; Eosinophils # 0.2 10^3/uL (0.0-0.8); Eosinophils % 2.1 %; Hematocrit 44.9 % (37-53); Lymphocytes # 2.7 10^3/uL (0.8-4.8); Lymphocytes % 28.9 %; Mean Corpuscular HGB Conc 34.5 g/dL (30-55); Mean Corpuscular Hemoglobin 28.7 pg (27-33); Mean Platelet Volume 11.6 fL (7.4-10.4); Monocytes # 0.4 10^3/uL (0.2-0.9); Monocytes % 4.7 %; Neutrophils # 5.83 10^3/uL (1.8-7.7); Neutrophils % 63.7 %; Nucleated Red Blood Cells % 0 %; Platelet Count 258 10^3/cmm (157-399); Red Blood Count 5.41 10^6/uL (3.85-5.65); White Blood Count 9.16 10^3/uL (3.29-11.43)
[2023-07-10 00:13] VITALS: PULSE 79; RESP 19; O2SAT 98
[2023-07-10] MEDS: amlodipine 10 mg Tablet PO (00:18)
[2023-07-10 00:22] LABS: Alanine Aminotransferase 16 U/L (0-41); Albumin Level 4.4 g/dL (3.5-5.2); Alkaline Phosphatase 87 U/L (40-130); Anion Gap 14.8 (5-19); Aspartate Amino Transferase 17 U/L (0-40); Blood Urea Nitrogen 16 mg/dL (6-20); Calcium 9.5 mg/dL (8.5-10.5); Carbon Dioxide 27 mmol/L (22-29); Chloride 100 mmol/L (98-107); Creatinine Clr Calc Pharmacy 151.7951; Globulin 3.6 g/dL (1.3-4.6); Glomerular Filtration Rate 94.3 mL/min (90-130); Glucose 95 mg/dL (65-115); Osmolality Calculated 287 mOsm/kg (285-295); Potassium 3.8 mmol/L (3.5-5.1); Sodium 138 mmol/L (136-145); Total Bilirubin 0.6 mg/dL (0.15-1.2)
[2023-07-10 00:43] VITALS: BP 149/94; PULSE 87; RESP 28; O2SAT 98
[2023-07-10 01:13] VITALS: BP 149/94; PULSE 91; RESP 19; O2SAT 97
[2023-07-10 01:24] VITALS: BP 154/104; PULSE 79; RESP 16; O2SAT 98
== END 2023-07-10 01:26 | disposition home or self-care (01) ==
PROVIDERS: Emergency Provider Physician Assistant; PCP Family Medicine
DX: I10 Essential (primary) hypertension (principal); Z87.891 Personal history of nicotine dependence
CPT/HCPCS: 36415; 71045; 80053; 85025; 93005; 99285

== ENCOUNTER 2023-09-14 04:43 | Emergency (ER) | payer MEDICAID, SELFPAY ==
[2023-09-14 04:58] VITALS: BP 200/80; PULSE 107; RESP 18; TEMP 36.8; O2SAT 96; BMI 45.6
[2023-09-14 05:45] VITALS: BP 155/76; PULSE 84; O2SAT 95
--- NOTE | 2023-09-14 06:02 | W.ED.DENTAL ---
HPI - Dental/Oral General: Chief complaint: Dental/Oral Stated complaint: Mouth pain Time Seen by Provider: 09/14/23 05:46 History of Present Illness: 22-year-old male presents emergency room complaining of right-sided tooth pain upper second molar on the right. No drainage from them. He has several other teeth that are significantly eroded. He has an appointment later today with the dentist but he has significant pain. Associated symptoms: Denies fever(s) Review of Systems Const: Denies: fever(s) or chills Resp: Denies: dyspnea Skin/Breast: Denies: rash PFSH ED PFSH: Medical History Psoriasis Family History Mother Heart failure Father AAA (abdominal aortic aneurysm) Grandfather AAA (abdominal aortic aneurysm) Social History Smoking and tobacco/nicotine status: former use of tobacco/nicotine Alcohol intake: never Substance/Drug Use: never Physical Exam Const: COMMON NORMALS: no acute distress GENERAL APPEARANCE: cooperative and comfortable ORIENTATION/CONSCIOUSNESS: Yes awake, Yes oriented to person, Yes oriented to place and Yes oriented to time HENMT: COMMON NORMALS: normocephalic, atraumatic and hearing grossly normal bilaterally HEAD & SCALP: normocephalic and atraumatic OTHER: Poor dentition third mandibular molar on the left nearly completely eroded away but no drainage or swelling along the gumline second molar maxillary right has dental caries mild swelling at the gumline. No active drainage. Resp: COMMON NORMALS: normal respiratory effort, No retractions, No use of accessory muscles and clear to auscultation bilaterally AUSCULTATION: clear to auscultation bilaterally Cardio: COMMON NORMALS: regular rate, regular rhythm and No murmurs present (Cardio) RATE: regular rate RHYTHM: regular rhythm Extremity: COMMON NORMALS: normal to inspection, capillary refill normal, no clubbing, cyanosis or edema, no calf tenderness and no pedal edema Neuro: SENSORIUM/ORIENTATION: Yes oriented to person, Yes oriented to place and Yes oriented to time Skin: COMMON NORMALS: no rashes or lesions noted GENERAL SKIN EXAM: no rashes or lesions noted Course Vital Signs: Vital signs: Vital Signs Temperature 98.2 F 09/14/23 04:58 Pulse Rate 84 09/14/23 05:45 Respiratory Rate 18 09/14/23 04:58 Blood Pressure 155/76 09/14/23 05:45 Pulse Oximetry 95 09/14/23 05:45 MDM - Dental/Oral Medical Decision Making Dental caries. Will start on clindamycin 300 4 times daily also give tramadol. Follow-up with dentist as planned today. Medical Records I reviewed the patient's medical records. All radiology interpretation(s) finalized by discharge Discharge Plan Discharge Patient Disposition: Home Clinical Impression: Dental caries Condition: Stable Prescriptions: New clindamycin HCl 300 mg capsule 300 mg PO QID 10 Days Qty: 40 0RF tramadol 50 mg tablet 50 mg PO Q6H PRN (Reason: pain) Qty: 14 0RF No Action amlodipine 10 mg tablet 10 mg PO DAILY hydrocortisone 2.5 % cream 1 applic topical BID Qty: 30 2RF Rx Instructions: to face no more than 2 wks / mo for flares clobetasol 0.05 % ointment 1 applic topical BID 14 Days Qty: 60 3RF Rx Instructions: to affected areas on arms and trunk no more than 2 wks/mo prn alternating with triamcinolone triamcinolone acetonide 0.1 % ointment 1 applic topical BID Qty: 453.6 1RF Rx Instructions: to arms and trunk BID alt. with clobetasol as needed for flares no more than 2 wks/mo amlodipine 5 mg tablet 5 mg Discharge Orders: Discharge ED (Routine); Ordered 09/14/23 Ordered By: Song Cheng Referrals: Moon Amaral DO [Primary Care Provider] - Discharge Diet: Soft Mechanical Discharge Activity: Resume usual activity Patient Instructions: Opioid Safety, Pain Management Activity Restrictions/Additional Instructions: Thank you for choosing [facility] for your healthcare needs today. It is very important that you follow up as instructed or that you return to the Emergency Department should you have concerns or if your condition changes or worsens in any way. You are seen today for dental infection. Recommend starting oral antibiotics 1 pill 3 times a day. He also given tramadol for pain. Follow-up with dentist as soon as you are able for definitive care Coding Level of Care Code ED Meat Lugger for Donna Perry
== END 2023-09-14 06:27 | disposition home or self-care (01) ==
PROVIDERS: Emergency Provider Family Medicine; PCP Family Medicine
DX: K02.9 Dental caries, unspecified (principal); Z87.891 Personal history of nicotine dependence
CPT/HCPCS: 99283

== ENCOUNTER 2023-09-17 00:30 | Emergency (ER) | payer MEDICAID, SELFPAY ==
[2023-09-17 00:34] VITALS: BP 175/95; PULSE 84; RESP 17; TEMP 36.6; O2SAT 98; BMI 45.6
--- NOTE | 2023-09-17 00:53 | ECG_ITS ---
[facility] Test Date: 2023-09-17 Pat Name: Agustin Cedeno Department: Room: Gender: Male Camp Assistant: : 2000 Requested By: Wally Jeffers Order Number: [id number] Mills MD: Savage Lockwood M.D. Measurements Intervals [place] Rate: 84 P: 63 [place]: 170 QRS: 62 QRSD: 91 T: 43 QT: 355 QTc: 421 Interpretive Statements SINUS RHYTHM Compared to ECG 07/10/2023 00:03:25 No significant changes Electronically Signed On 09-17-2023 14:09:42 CDT by Savage Lockwood M.D. [email or web address]
[2023-09-17 01:17] VITALS: BP 194/104; PULSE 89; RESP 23; O2SAT 98
--- NOTE | 2023-09-17 01:24 | ED_ITS ---
HPI - General Adult General: Chief complaint: Headache Stated complaint: High blood pressure Time Seen by Provider: 09/17/23 00:55 History of Present Illness: Patient is a 22-year-old male with a known history of hypertension that presents to the ER for evaluation of high blood pressure. Patient states that he has been able to feel like his blood pressure was elevated most all of today. He states he took his blood pressure earlier today and noted it was elevated at which point he took his second dose of amlodipine totaling 10 mg of amlodipine today. He normally takes 5 mg amlodipine daily. He does state he has had a toothache and recently saw a dentist the end of last week who tried to pull his tooth and some of his increased blood pressure may be related to his acute pain. He has had a mild headache today which she states is pretty typical whenever his blood pressure is elevated. He states his blood pressure typically is around 140 systolic. He was having some worsening headache tonight prompting him to come and be evaluated due to his elevated blood pressure. He denies any vomiting. He denies any sudden onset or thunderclap nature to his headache or symptoms. No neck pain or stiffness. No known fevers. Patient does acknowledge that he smoked some marijuana earlier today. Associated symptoms: Reports headache(s); Deny chest pain, diaphoresis, dyspnea, nausea or vomiting Review of Systems Const: Denies: fever(s), chills or diaphoresis ENMT: Reports: dental pain Card: Denies: chest pain Resp: Denies: dyspnea GI: Denies: abdominal pain, nausea or vomiting Neuro: Reports: headache(s) PFSH ED PFSH: Medical History Psoriasis Family History Mother Heart failure Father AAA (abdominal aortic aneurysm) Grandfather AAA (abdominal aortic aneurysm) Social History Smoking and tobacco/nicotine status: former use of tobacco/nicotine Alcohol intake: never Substance/Drug Use: never Physical Exam Narrative: EXAM NARRATIVE: Obese 22-year-old male with psoriasis Const: COMMON NORMALS: no acute distress, patient oriented x3, alert and well nourished GENERAL APPEARANCE: cooperative ORIENTATION/CONSCIOUSNESS: Yes awake HENMT: COMMON NORMALS: normocephalic and atraumatic HEAD & SCALP: normocephalic and atraumatic OTHER: Patient does have an obvious dental carry to the right lower second molar. No gingival fluctuance or drainable abscess. Eye: COMMON NORMALS: conjunctivae normal CONJUNCTIVA: Yes conjunctivae normal Neck/C-Spine: GENERAL: Yes normal visual inspection Resp: COMMON NORMALS: normal respiratory effort, No retractions and No use of accessory muscles Cardio: COMMON NORMALS: regular rhythm and Peripheral pulses 2+ throughout RHYTHM: regular rhythm PERIPHERAL PULSES: Peripheral pulses 2+ throughout GI: COMMON NORMALS: Soft to palpation and non-tender PALPATION: Yes Soft to palpation Extremity: COMMON NORMALS: full ROM and no pedal edema Neuro: COMMON NORMALS: patient oriented x3, CN's II-XII intact bilaterally, moves all extremities and no focal motor deficits SENSORIUM/ORIENTATION: Yes alert Skin: COMMON NORMALS: no rashes or lesions noted GENERAL SKIN EXAM: no rashes or lesions noted Course Vital Signs: Vital signs: Vital Signs Temperature 97.8 F 09/17/23 00:34 Pulse Rate 89 09/17/23 01:17 Respiratory Rate 23 H 09/17/23 01:17 Blood Pressure 194/104 09/17/23 01:17 Pulse Oximetry 98 09/17/23 01:17 Oxygen Delivery Me thod Room Air 09/17/23 01:17 MDM - General Adult Medical Decision Making 22-year-old male who has known hypertension and presents with continued high blood pressure this evening causing him to have a headache. On exam he is in no acute distress and is well-appearing. He does have known psoriasis and takes topical corticosteroids for this. He is currently on clindamycin for a dental infection. He has no focal neurologic deficits. Blood pressure is fairly marked [place] here 190s over 100s. Patient will be given a dose of p.o. clonidine. Lab results from previous records show his creatinine has been normal as recent as just a couple of months ago. I will go ahead and start him on 5 mg lisinopril daily and have him follow-up with his PCP for repeat blood pressure checks this week. No radiology studies performed this visit Discharge Plan Discharge Patient Disposition: Home Clinical Impression: Hypertension Qualifiers: Hypertension type: primary hypertension Qualified Code(s): I10 - Essential (primary) hypertension Condition: Stable Prescriptions: New lisinopril 5 mg tablet 5 mg PO DAILY Qty: 30 0RF No Action amlodipine 10 mg tablet 10 mg PO DAILY hydrocortisone 2.5 % cream 1 applic topical BID Qty: 30 2RF Rx Instructions: to face no more than 2 wks / mo for flares clobetasol 0.05 % ointment 1 applic topical BID 14 Days Qty: 60 3RF Rx Instructions: to affected areas on arms and trunk no more than 2 wks/mo prn alternating with triamcinolone triamcinolone acetonide 0.1 % ointment 1 applic topical BID Qty: 453.6 1RF Rx Instructions: to arms and trunk BID alt. with clobetasol as needed for flares no more than 2 wks/mo amlodipine 5 mg tablet 5 mg clindamycin HCl 300 mg capsule 300 mg PO QID 10 Days Qty: 40 0RF tramadol 50 mg tablet 50 mg PO Q6H PRN (Reason: pain) Qty: 14 0RF Discharge Orders: Discharge ED (Routine); Ordered 09/17/23 Ordered By: Wally Jeffers Referrals: Moon Amaral DO [Primary Care Provider] - Discharge Diet: Low Salt Patient Instructions: Pain Management, Hypertension (ED) Activity Restrictions/Additional Instructions: Continue home medications as directed and take prescribed medications as directed. Follow-up with your PCP for recheck this week. Return to the ER for any new or worsening symptoms or any other concerns. Coding Level of Care Code ED Box Truck Owner Operator for Donna Perry
[2023-09-17 01:32] VITALS: BP 182/107
[2023-09-17] MEDS: cloNIDine 0.1 mg Tablet PO (01:32)
[2023-09-17 02:03] VITALS: BP 176/85; PULSE 90; RESP 16; O2SAT 98
[2023-09-17 02:04] VITALS: BP 176/85; PULSE 90; RESP 16; TEMP 36.6; O2SAT 98
== END 2023-09-17 02:04 | disposition home or self-care (01) ==
PROVIDERS: Emergency Provider Student in an Organized Health Care Education/Training Program; PCP Family Medicine
DX: I10 Essential (primary) hypertension (principal)
CPT/HCPCS: 93005; 99283

== ENCOUNTER 2023-09-17 23:38 | Emergency (ER) | payer MEDICAID, SELFPAY ==
[2023-09-17 23:44] VITALS: BP 177/99; PULSE 98; RESP 18; TEMP 37.3; O2SAT 99
--- NOTE | 2023-09-17 23:56 | W.ED.DENTAL ---
HPI - Dental/Oral General: Chief complaint: Dental/Oral Stated complaint: Mouth/Tooth pain, Fever Time Seen by Provider: 09/17/23 23:40 Source: patient and family Mode of arrival: ambulatory Limitations: no limitations History of Present Illness: Patient is a 22-year-old male who presents to the ED today with a complaint of subjective fevers. Patient was seen here in the ED on 09/13 in regards to a dental infection/toothache and was placed on clindamycin. He states he has follow-up plans with a dentist this week. He states today he began feeling like he was running fevers. He never checked a temperature. Patient was concerned that this was indicative of worsening dental infection thus prompting his return visit. Patient has not noticed any facial swelling. He is actually not having any dental pain currently stating he took ibuprofen prior to arrival. Patient also reporting elevated blood pressure. He was seen again in our ED yesterday for complaints of hypertension. He takes amlodipine daily. He was prescribed to start lisinopril but prescription was never e-scripted to his pharmacy. He currently has no complaints of a headache, visual changes, or chest pain. MD Complaint: tooth pain Onset (ago): day(s) Duration: constant Relieving factors: NSAIDs Associated symptoms: Reports fever(s) (subjective) Treatment prior to arrival: oral analgesic Review of Systems Const: Reports: fever(s) (subjective); Denies: chills, body aches, fatigue or malaise Eyes: Denies: change in vision ENMT: Reports: dental pain Card: Denies: chest pain Resp: Denies: dyspnea GI: Denies: nausea or vomiting Neuro: Denies: headache(s) or dizziness [facility] ED PFSH: Medical History Psoriasis Family History Mother Heart failure Father AAA (abdominal aortic aneurysm) Grandfather AAA (abdominal aortic aneurysm) Social History Smoking and tobacco/nicotine status: former use of tobacco/nicotine Alcohol intake: never Substance/Drug Use: never Physical Exam Const: COMMON NORMALS: no acute distress, patient oriented x3, no limitations, alert and well nourished GENERAL APPEARANCE: cooperative NUTRITIONAL APPEARANCE: obese ORIENTATION/CONSCIOUSNESS: Yes awake, Yes oriented to person, Yes oriented to place and Yes oriented to time HENMT: FACE & SINUS: normal facial exam; no edema TEETH & GINGIVA IMAGES: 1. dental pain; no evidence for active infection noted; no abscess/edema Neck/C-Spine: COMMON NORMALS: no lymphadenopathy GENERAL: No anterior neck swelling and No submandibular swelling Resp: COMMON NORMALS: normal respiratory effort and clear to auscultation bilaterally AUSCULTATION: clear to auscultation bilaterally Cardio: COMMON NORMALS: regular rate and regular rhythm RATE: regular rate RHYTHM: regular rhythm Neuro: VERONICA COMA SCALE: document GCS findings [place] coma scale eye opening: Spontaneous [place] coma scale verbal response: Orientated Veronica coma scale motor response: Obey commands Veronica coma scale total score: 15 COMMON NORMALS: patient oriented x3, moves all extremities, no focal motor deficits and no sensory deficits noted SENSORIUM/ORIENTATION: Yes alert, Yes oriented to person, Yes oriented to place and Yes oriented to time Course Vital Signs: Vital signs: Vital Signs Temperature 99.1 F 09/17/23 23:44 Pulse Rate 98 09/17/23 23:44 Respiratory Rate 18 09/17/23 23:44 Blood Pressure 177/99 09/17/23 23:44 Pulse Oximetry 99 09/17/23 23:44 Oxygen Delivery Me thod Room Air 09/17/23 23:44 MDM - Dental/Oral Medical Decision Making Patient appears in no acute distress. He was encouraged to continue plan to follow-up with a dentist in regards to his dental pain. He states that he is lisinopril prescription from his last emergency visit did not get e-scripted to his pharmacy so will re-submit this today. Recommend he keep a blood pressure log and follow-up with his primary care provider so they can adjust medications as needed. Return to ED precautions given. Medical Records I reviewed the patient's medical records. No radiology studies performed this visit Discharge Plan Discharge Patient Disposition: Home Clinical Impression: Pain, dental Hypertension Qualifiers: Hypertension type: primary hypertension Qualified Code(s): I10 - Essential (primary) hypertension Condition: Stable Prescriptions: Continued lisinopril 5 mg tablet 5 mg PO DAILY Qty: 30 0RF No Action amlodipine 10 mg tablet 10 mg PO DAILY hydrocortisone 2.5 % cream 1 applic topical BID Qty: 30 2RF Rx Instructions: to face no more than 2 wks / mo for flares clobetasol 0.05 % ointment 1 applic topical BID 14 Days Qty: 60 3RF Rx Instructions: to affected areas on arms and trunk no more than 2 wks/mo prn alternating with triamcinolone triamcinolone acetonide 0.1 % ointment 1 applic topical BID Qty: 453.6 1RF Rx Instructions: to arms and trunk BID alt. with clobetasol as needed for flares no more than 2 wks/mo amlodipine 5 mg tablet 5 mg clindamycin HCl 300 mg capsule 300 mg PO QID 10 Days Qty: 40 0RF tramadol 50 mg tablet 50 mg PO Q6H PRN (Reason: pain) Qty: 14 0RF Discharge Orders: Discharge ED (Routine); Ordered 09/17/23 Ordered By: Reema Poe Referrals: Moon Amaral DO [Primary Care Provider] - Patient Instructions: Chronic Hypertension (DC), Hypertension (ED), Toothache (ED) Activity Restrictions/Additional Instructions: As we discussed, please follow-up with a dentist as soon as possible in regards to your dental pain. As we discussed, I would like you to keep a blood pressure log over the next 2 weeks. Monitor your blood pressure twice daily. Continue taking your amlodipine pain as prescribed. I have also E scripted your lisinopril. Primary care can increase these medications based on your blood pressure log. Coding Level of Care Code ED Commissioned Defence [employer] Officer for Donna Perry
[2023-09-18] MEDS: lisinopril 10 mg Tablet PO (00:12)
[2023-09-18 00:28] VITALS: BP 164/95; PULSE 84; RESP 16; O2SAT 97
== END 2023-09-18 00:30 | disposition home or self-care (01) ==
PROVIDERS: Emergency Provider Physician Assistant; PCP Family Medicine
DX: K08.89 Other specified disorders of teeth and supporting structures (principal); I10 Essential (primary) hypertension; Z87.891 Personal history of nicotine dependence
CPT/HCPCS: 99283

== ENCOUNTER 2023-11-18 16:43 | Emergency (ER) | payer MEDICAID, SELFPAY ==
[2023-11-18 17:04] VITALS: BP 173/106; PULSE 92; RESP 18; TEMP 36.7; O2SAT 98; BMI 45.6
--- NOTE | 2023-11-18 17:19 | W.ED.DENTAL ---
HPI - Dental/Oral General: Chief complaint: Dental/Oral Stated complaint: tooth pain, high BP 200/110 Time Seen by Provider: 11/18/23 17:07 History of Present Illness: 23-year-old male patient comes in today for complaints of left upper jaw pain. Patient has a second molar that has broken off at the back of the tooth. Patient has had increased pain for the last 2 to 3 days. Related Data Home Medications Medication Instructions Recorded Confirmed amlodipine 10 mg tablet 10 mg PO DAILY 12/28/20 12/28/20 amlodipine 5 mg tablet 5 mg 12/17/22 Previous Rx's Medication Instructions Recorded clobetasol 0.05 % topical ointment 1 applic topical BID 2 weeks #60 12/28/20 grams hydrocortisone 2.5 % topical cream 1 applic topical BID #30 grams 12/28/20 triamcinolone acetonide 0.1 % 1 applic topical BID #453.6 grams 12/28/20 topical ointment tramadol 50 mg tablet 50 mg PO Q6H PRN pain #14 tabs 09/14/23 lisinopril 5 mg tablet 5 mg PO DAILY #30 tabs 09/17/23 clindamycin HCl 300 mg capsule 300 mg PO TID 7 days #21 caps 11/18/23 lidocaine HCl 2 % mucosal solution 5 ml mucous membrane Q3H PRN pain 11/18/23 (Lidocaine Viscous) #100 mL Allergies Allergy/AdvReac Type Severity Reaction Status Date / Time Penicillins Allergy Unknown Verified 11/18/23 17:06 Review of Systems General: Reports: 10 or more systems reviewed and unremarkable except in HPI and below PFSH ED PFSH: Medical History Psoriasis Family History Mother Heart failure Father AAA (abdominal aortic aneurysm) Grandfather AAA (abdominal aortic aneurysm) Social History Smoking and tobacco/nicotine status: former use of tobacco/nicotine Alcohol intake: never Substance/Drug Use: never Physical Exam Const: COMMON NORMALS: alert HENMT: COMMON NORMALS: normocephalic HEAD & SCALP: normocephalic OTHER: Note a carious tooth to the left upper jaw that is the second molar with the posterior part of the tooth that is fractured off. No gingival redness or swelling is noted. Resp: COMMON NORMALS: normal respiratory effort Cardio: COMMON NORMALS: regular rate RATE: regular rate Back/Pelvis: COMMON NORMALS: thoracic and lumbar spine normal to inspection Extremity: COMMON NORMALS: full ROM Neuro: SENSORIUM/ORIENTATION: Yes alert Skin: COMMON NORMALS: turgor normal GENERAL SKIN EXAM: turgor normal Course Vital Signs: Vital signs: Vital Signs Temperature 98.0 F 11/18/23 17:04 Pulse Rate 97 11/18/23 18:52 Respiratory Rate 16 11/18/23 18:52 Blood Pressure 169/99 11/18/23 18:52 Pulse Oximetry 98 11/18/23 18:52 Oxygen Delivery Me thod Room Air 11/18/23 17:04 [facility] - Dental/Oral Medical Decision Making 23-year-old male patient comes in today for complaints of dental pain. On exam patient appears nontoxic. Patient appears no acute distress. Respirations are even lungs are clear to auscultation. Skin is warm and dry. Posterior pharynx is normal. Gingiva appears normal. Patient does have a fractured left upper molar. Differential diagnosis includes not limited to dental pain, dental caries, dental abscess. Patient was given some viscous lidocaine and recommended to use acetaminophen ibuprofen for pain. Recommended ice packs for further pain relief. Recommend follow-up with dentist. Patient was prescribed some clindamycin but stated he was already on azithromycin at the prescription was written. Recommended clindamycin of the azithromycin but patient can make that judgment call. Patient reported understanding. No radiology studies performed this visit Discharge Plan Discharge Patient Disposition: Home Clinical Impression: Dental caries, Toothache Condition: Stable Prescriptions: New clindamycin HCl 300 mg capsule 300 mg PO TID 7 Days Qty: 21 0RF lidocaine HCl [Lidocaine Viscous] 2 % solution 5 ml mucous membrane Q3H PRN (Reason: pain) Qty: 100 0RF No Action amlodipine 10 mg tablet 10 mg PO DAILY hydrocortisone 2.5 % cream 1 applic topical BID Qty: 30 2RF Rx Instructions: to face no more than 2 wks / mo for flares clobetasol 0.05 % ointment 1 applic topical BID 14 Days Qty: 60 3RF Rx Instructions: to affected areas on arms and trunk no more than 2 wks/mo prn alternating with triamcinolone triamcinolone acetonide 0.1 % ointment 1 applic topical BID Qty: 453.6 1RF Rx Instructions: to arms and trunk BID alt. with clobetasol as needed for flares no more than 2 wks/mo lisinopril 5 mg tablet 5 mg PO DAILY Qty: 30 0RF amlodipine 5 mg tablet 5 mg tramadol 50 mg tablet 50 mg PO Q6H PRN (Reason: pain) Qty: 14 0RF Discharge Orders: Discharge ED (Routine); Ordered 11/18/23 Ordered By: Vidal Nevarez Referrals: Moon Amaral DO [Primary Care Provider] - Discharge Diet: Usual diet Discharge Activity: Increase activity as tolerated Patient Instructions: Toothache (ED) Activity Restrictions/Additional Instructions: Home and rest. Follow-up with dentist for definitive care. Use viscous lidocaine applied to a cotton ball or a piece of gauze and hold in the area of pain until relief. Can use every 3 hours as needed for relief of pain. May also use Tylenol and ibuprofen for pain. May also use ice packs for pain. Pain should improve as antibiotic works. Follow-up with dentist for further recommendations of treatment. Coding Level of Care Code ED [employer] Consultant for Donna Perry
[2023-11-18] MEDS: lidocaine 2% viscous 15 mL UDC 5 ML MUCOUS MEM (18:29)
[2023-11-18] MEDS: clindamycin 150 mg Capsule 300 MG PO (18:29)
[2023-11-18 18:52] VITALS: BP 169/99; PULSE 97; RESP 16; O2SAT 98
== END 2023-11-18 18:33 | disposition home or self-care (01) ==
PROVIDERS: Emergency Provider Nurse Practitioner Family; PCP Family Medicine
DX: K02.9 Dental caries, unspecified (principal); Z87.891 Personal history of nicotine dependence
CPT/HCPCS: 99283

== ENCOUNTER 2024-01-04 23:05 | Emergency (ER) | payer MEDICAID, SELFPAY ==
[2024-01-04 23:07] VITALS: BP 166/92; PULSE 89; RESP 17; TEMP 36.7; O2SAT 97; BMI 44.1
--- NOTE | 2024-01-05 00:20 | ED_ITS ---
HPI - Dental/Oral General: Chief complaint: Dental/Oral Stated complaint: dental pain Time Seen by Provider: 01/04/24 23:12 History of Present Illness: 23-year-old male patient comes in today for complaints of dental pain to the left upper and lower gingiva. Patient has significant decay in his rear molars and is awaiting referral for a dental surgeon to remove the teeth. Patient appears nontoxic. Patient appears no acute distress. No facial swelling is noted. Related Data Home Medications Medication Instructions Recorded Confirmed amlodipine 10 mg tablet 10 mg PO DAILY 12/28/20 12/27/23 amlodipine 5 mg tablet 5 mg 12/17/22 12/27/23 Previous Rx's Medication Instructions Recorded doxycycline hyclate 100 mg capsule 100 mg PO BID 7 days #14 caps 01/05/24 ketorolac 10 mg tablet 10 mg PO Q6H PRN Outbreak 5 days 01/05/24 #10 tabs lidocaine HCl 2 % mucosal solution 1 applic mucous membrane Q4H PRN 01/05/24 (Lidocaine Viscous) pain #100 mL Allergies Allergy/AdvReac Type Severity Reaction Status Date / Time Penicillins Allergy Unknown Verified 01/04/24 23:06 Review of Systems General: Reports: 10 or more systems reviewed and unremarkable except in HPI and below ENMT: Reports: dental pain [facility] ED PFSH: Medical History Psoriasis Family History Mother Heart failure Father AAA (abdominal aortic aneurysm) Grandfather AAA (abdominal aortic aneurysm) Social History Smoking and tobacco/nicotine status: unknown if used tobacco/nicotine Alcohol intake: never Substance/Drug Use: never Physical Exam Const: COMMON NORMALS: alert HENMT: COMMON NORMALS: normocephalic HEAD & SCALP: normocephalic TEETH & GINGIVA: Yes poor dentition Neck/C-Spine: COMMON NORMALS: full ROM Resp: COMMON NORMALS: normal respiratory effort and clear to auscultation bilaterally AUSCULTATION: clear to auscultation bilaterally Cardio: COMMON NORMALS: regular rate RATE: regular rate Extremity: COMMON NORMALS: normal to inspection Neuro: SENSORIUM/ORIENTATION: Yes alert Skin: COMMON NORMALS: turgor normal GENERAL SKIN EXAM: turgor normal Course Vital Signs: Vital signs: Vital Signs Temperature 98.0 F 01/04/24 23:07 Pulse Rate 89 01/04/24 23:07 Respiratory Rate 17 01/04/24 23:07 Blood Pressure 166/92 01/04/24 23:07 Pulse Oximetry 97 01/04/24 23:07 Oxygen Delivery Me thod Room Air 01/04/24 23:07 MDM - Dental/Oral Medical Decision Making 23-year-old male patient comes in today with dental pain. On exam patient has some significant decay to his posterior molars of his left upper and lower jaw. Patient is complaining of pain in both of these molars. Differential diagnosis includes dental caries, dental pain, dental abscess. No obvious dental abscess is noted. Patient be placed on doxycycline for the treatment of possible infection. Patient was given Toradol and viscous lidocaine for pain. Patient was recommended to follow-up with dentist for definitive care. No radiology studies performed this visit Discharge Plan Discharge Patient Disposition: Home Clinical Impression: Toothache Condition: Stable Prescriptions: New doxycycline hyclate 100 mg capsule 100 mg PO BID 7 Days Qty: 14 0RF lidocaine HCl [Lidocaine Viscous] 2 % solution 1 applic mucous membrane Q4H PRN (Reason: pain) Qty: 100 0RF ketorolac 10 mg tablet 10 mg PO Q6H PRN (Reason: Outbreak) 5 Days Qty: 10 0RF Discontinued clindamycin HCl 150 mg capsule 450 mg PO TID 7 Days Qty: 63 0RF tramadol 50 mg tablet 50 mg PO Q6H PRN (Reason: pain) Qty: 14 0RF No Action amlodipine 10 mg tablet 10 mg PO DAILY amlodipine 5 mg tablet 5 mg Discharge Orders: Discharge ED (Routine); Ordered 01/05/24 Ordered By: Vidal Nevarez Referrals: Moon Amaral DO [Primary Care Provider] - Discharge Diet: Usual diet Discharge Activity: Increase activity as tolerated Patient Instructions: Toothache (ED) Activity Restrictions/Additional Instructions: Take antibiotics as directed. Drink plenty of water and fluids with medications. Use ketorolac and lidocaine viscous to help control pain. Follow- up with dentist for definitive care. Coding Level of Care Code ED Reciprocating Drill Operator for Donna Perry
[2024-01-05 00:29] VITALS: PULSE 83; RESP 18; O2SAT 99
[2024-01-05 00:33] VITALS: BP 168/130
[2024-01-05] MEDS: ketorolac 10 mg Tablet PO (00:40)
[2024-01-05] MEDS: doxycycline 100 mg Tablet PO (00:40)
[2024-01-05] MEDS: lidocaine 2% viscous 15 mL UDC MUCOUS MEM (00:40)
[2024-01-05 00:46] VITALS: BP 160/128; PULSE 84; RESP 18; O2SAT 99
== END 2024-01-05 00:49 | disposition home or self-care (01) ==
PROVIDERS: Emergency Provider Nurse Practitioner Family; PCP Family Medicine
DX: K08.89 Other specified disorders of teeth and supporting structures (principal)
CPT/HCPCS: 99283

== ENCOUNTER 2024-08-13 12:57 | Emergency (ER) | payer SELFPAY ==
[2024-08-13 13:02] VITALS: BP 150/87; PULSE 67; RESP 18; TEMP 36.7; O2SAT 96; BMI 42.5
--- OUTSIDE RECORDS SUMMARY | 2024-08-13 13:02 | XMS_ITS | Clinical Summary ---
Author Organization [facility] Address [address] [place] [address] Care Team Providers Care Product Architect Name Role Phone Moon Amaral DO Primary Care Provider Allergies Active Allergy Reactions Criticality Noted Date Comments Penicillins Unknown 10/29/2008 Medications Clindamycin-Jensen oyl Peroxide (Benzaclin) 1-5 % GelIndications:A cne, unspecified acne type Apply small amount to face for acne daily. 35 Gram 2 0 Active albuterol (PROVENTIL,BARRIE LAURA) 2.5 mg /3 mL (0.083 %) Solution for NebulizationIndi cations:Acute bronchitis, unspecified organism Take 3 mL (2.5 mg) by inhalation every 6 hours as needed for Shortness of Breath. 300 mL 0 Active amLODIPine (NORVASC) 5 mg tabletIndication s:Benign hypertension Take 1 Tablet (5 mg) by mouth daily. 30 Tablet 5 0 Active ProAir HFA 90 mcg/actuation inhalerIndicatio ns:Acute bronchitis, unspecified organism INHALE 2 PUFFS BY MOUTH EVERY 6 HOURS NEEDED FOR SHORTNESS OF BREATH 27 Gram 6 1 Active calcipotriene (DOVONEX) 0.005 % OintmentIndicati ons:Psoriasis Apply to affected area 2 times daily. 120 Gram 6 1 Active Triamcinolone Acetonide (KENALOG) 0.025 % OintmentIndicati ons:Psoriasis Apply to affected area 2 times daily. 80 Gram 2 1 Active Calcipotriene 0.005 % SolutionIndicati ons:Psoriasis Apply to affected area every third day. 120 mL 6 1 Active clobetasoL (TEMOVATE) 0.05 % SolutionIndicati ons:Psoriasis Apply to affected area 2 times daily. 100 mL 12 1 Active cycloSPORINE modified (Neoral) 100 mg/mL solutionIndicati ons:Psoriasis Take 1 mL (100 mg) by mouth daily. Take with orange juice or apple juice at room temperature 50 mL 1 Active Active Problems Problem Noted Date Diagnosed Date Deliberate self-cutting 12/01/2017 Anxiety 11/29/2017 Bipolar 1 disorder 10/19/2017 Environmental allergies 04/25/2013 Psoriasis 04/10/2013 ADHD (attention deficit hyperactivity disorder) 05/11/2010 Resolved Problems Problem Noted Date Diagnosed Date Resolved Date Generalized anxiety disorder 03/29/2011 04/10/2013 Hypertrophy of tonsil with adenoids 10/29/2008 01/08/2013 Allergic rhinitis, cause unspecified 10/29/2008 04/10/2013 Dysfunction of eustachian tube 10/29/2008 01/08/2013 Immunizations Immunization Administration Dates Next Due (ACTHIB/HIBERIX)(2 MOS-5 YRS /6 WKS-4 YRS) HAEMOPHILUS INFLUENZAE TYPE B VACCINE (HIB), PRP-T CONJUGATE, 4 DOSE, 0.5 ML IM 09/15/2003 (GARDASIL)(9-45 YRS) HUMAN P APILLOMAVIRUS VACCINE, TYPES 6, 11, 16, 18, QUADRIVALENT (4VHPV), 3 DOSE, IM 09/22/2016,11/27/2014 (INFANRIX)(6 WKS-6 YRS) DIPT HERIA, TETANUS TOXOIDS, AND ACCELLULAR PERTUSSIS VACCINE (DTAP), 0.5 ML IM 01/06/2002 (IPOL)(6 WKS AND UP) POLIOVI FRANCESCA VACCINE, INACTIVATED (IPV), 3 DOSE, SUBCUT OR IM 01/06/2002 (M-M-R II/PRIORIX)(12 MO UP) MEASLES, MUMPS AND RUBELLA VIRUS VACCINE, 0.5 ML IM/SUBCUT 12/19/2006,09/15/2003 (PEDIARIX)(6 WKS-6 YRS) DIPT HERIA, TETANUS TOXOIDS, ACELLULAR PERTUSSIS, HEPATITIS B, AND INACTIVATED POLIOVIRUS VACCINE ([id number]), 0.5ML, IM 09/15/2003 (RECOMBIVAX HB/ENGERIX-B)(0- 19 YRS) HEPATITIS B VACCINE 5 MCG/0.5 ML OR 10 MCG/0.5 ML PED OR ADOL 3 DOSE (PF), IM 01/06/2002,2001 (VARIVAX)(12 MOS UP)VARICELL A VIRUS VACCINE (PF) 0.5 ML, SUB CUT 09/26/2007 Dt Dtp Dtap Vaccine 09/26/2007,12/19/2006 HIB Vaccine 01/06/2002 HPV Vaccine 3 Dose IM VFC 09/15/2015 INFLUENZA VACCINE QUADRIVALENT 3 YR UP PF IM IPV/OPV 09/26/2007,12/19/2006 Meningococcal A Conjugate Vaccine IM VFC 016 Meningococcal ACWY Vaccine, Unspecified Formulat ion 09/15/2015 Pneumococcal 7-valent conjugate vaccine IM 09/14 Tdap Vaccine > 7 Yo IM VFC 09/15/2015 Family History Medical History Relation Name Comments Anxiety Father Other Father Healthy Mother Heart Failure Mother Hypertension Mother Other Mother Aneurysm Paternal Grandfather Heart Disease Paternal Grandfather Other Paternal Grandfather Relation Name Status Comments Father Alive Mother Alive Paternal Grandfather Social History Tobacco Use Types Packs/Day Years Used Date Smoking Tobacco: Never Smokeless Tobacco: Never Tobacco Cessation:Counseling Given: Yes Alcohol Use Standard Drinks/Week Comments No 0 (1 standard drink = 0.6 oz pur e alcohol) Sex and Gender Information Value Date Recorded Sex Assigned at Not on file 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 Gender Identity Not on file Sexual Orientation Not on file Last Filed Vital Signs Vital Sign Reading Time Taken Comments Blood Pressure 118/68 06/21/2020 3:56 PM CDT Pulse 90 06/21/2020 3:56 PM CDT Temperature 36.1 C (97 F) 06/21/2020 3:56 PM CDT Respiratory Rate 18 07/08/2019 2:19 PM CDT Oxygen Saturation 98% 06/21/2020 3:56 PM CDT Inhaled Oxygen Concentration - - Weight 129.3 kg (285 lb) 06/21/2020 3:56 PM CDT Height 172.7 cm (5' 8.01 ) 06/21/2020 3:56 PM CD T Body Mass Index 43.32 06/21/2020 3:56 PM CDT Plan of Treatment Health Maintenance Due Date Last Done Comments Preventative Visit-Managed Medicaid 2020 08/20/2015, 09/22/2011 INFLUENZA VACCINE (#1) 2023 8, 10/19/2017, 03/14/2017 DTAP/TDAP/TD VACCINES (6 - T d or Tdap) 09/14/2025 09/15/2015, 09/26/2007, 12/19/2006, Additional history exists HEPATITIS B VACCINES Completed 09/15/2003, 01/06/2002, 2001 HPV VACCINES Completed 09/22/2016, 04/2015, 11/27/2014 Insurance [facility] Care Teams Product Architect Relationship Specialty Start Date End Date Moon Amaral DO [address] [place] [id number] PCP - General Family Practice 01/13/10
--- OUTSIDE RECORDS SUMMARY | 2024-08-13 13:03 | XMS_ITS | Encounter Summary ---
Author Organization [facility] Address [address] [place] [address] Care Team Providers Care Restaurant Crew Person Name Role Phone Moon Amaral DO Primary Care Provider [phone] Encounter Details Date Type Department Care Team (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 Gender Identity Not on file Sexual Orientation Not on file documented as of this encounter Plan of Treatment Not on file documented as of this encounter Visit Diagnoses Diagnosis Essential hypertension, benign- Primary documented in this encounter Additional Health Concerns Infection Onset Date Last Indicated Resolved Time R/O COVID-19 11/12/2019 11/12/2019 11/14/2019 12:1 5 AM CDT documented as of this encounter Care Teams Restaurant Crew Person Relationship Specialty Start Date End Date Moon Amaral DO [address] [place] [address] PCP - General Family Practice 01/13/10 documented as of this encounter
--- OUTSIDE RECORDS SUMMARY | 2024-08-13 13:03 | XMS_ITS | Patient Health Record ---
Author Organization [facility] Address [address] [address] Care Team Providers Care Ornamental Iron Worker Helper Name Role Phone Emil Sam Primary Care Provider [phone] Yusuf Sun [phone] Allergies Allergen (clinical drug ingredient) Drug/Non Drug Allergy documented on EMR Reaction Allergy Type Onset Date Status Penicillin Unknown Drug Allergy Active Reason For Referral No Information Medications Medication SIG (Take, Route, Frequency, Duration) Notes Start Date End Date Status dexAMETHasone 6 MG Tablet 1 Tablet Orall y Twice a Day; Duration: 3 days 12/20/2023 Active Concerta Active Amlodipine & Diet Manage Prod Active Chlorhexidine Gluconate 0.12 % Solution 15 mL swish for 30 seconds, then spit. Do not swallow. Mouth/Throat Twice a day; Duration: 10 days 12/20/2023 Active Social History Sex Assigned At : Social History Observation Description Sex Assigned At Male Vital Signs Heart Rate 90 /min 12/20/2023 Height-cm 172.72 cm 12/20/2023 Blood pressure diastolic 80 mm Hg 12/20/2023 Weight-kg 135.17 kg 12/20/2023 Height 68 in 12/20/2023 Blood pressure systolic 141 mm Hg 12/20/2023 Weight 298 lbs 12/20/2023 BMI 45.31 kg/m2 12/20/2023 Encounters Encounter Location Date Provider Diagnosis [facility] [address] [facility] [place] [address] 10/24/2023 Yusuf Sun [facility] [address] [place] [place] [address] 12/20/[address] [facility] [address] [place] [address] 09/07/[address] [facility] [facility] [address] [place] [address] 10/23/2023 Yusuf Sun Plan Of Treatment No Information Insurance Providers Payer Name Payer Address Payer Phone Subscriber Number Group Number Insured Name Patient Relationship to Insured Coverage Start Date Coverage End Date [facility] Plan of [place] [address] [place] [address] [id number] Agustin Cedeno Self - patient is the insured [facility] [address] [place] [address] [id number] Agustin Cedeno Self - patient is the insured Medical (General) History Medical History History ICD Code ADHD High blood Pressure
--- NOTE | 2024-08-13 13:12 | XR_ITS ---
WS: [id number] XR chest 1V portable [id number] REASON FOR EXAM: chest pain FINDINGS: The chest is unchanged compared to 06/27/2024. The heart and the mediastinum are within normal limits. Calcified granulomas disease in both hemithoraces. No acute pulmonary parenchymal or pleural abnormality. Bony thorax intact without significant focal abnormality. XR/XR chest 1V portable [id number] IMPRESSION: Stable chest without acute abnormality.
--- NOTE | 2024-08-13 13:12 | ECG_ITS ---
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 Measurements Intervals [place] Rate: 63 P: 39 FL: 161 QRS: 32 QRSD: 93 T: 37 QT: 363 QTc: 372 Interpretive Statements SINUS RHYTHM WITH MARKED SINUS ARRHYTHMIA POSSIBLE ANTERIOR MYOCARDIAL INFARCTION , OF INDETERMINATE AGE [30 ms Q WAVE IN V3/V4, OR R < 0.2 mV IN V4] Compared to ECG 06/27/2024 22:11:29 Myocardial infarct finding now present Electronically Signed On 08-14-2024 09:30:43 CDT by Neo Sandra M.D. [id number]
[2024-08-13 13:35] VITALS: BP 149/82; PULSE 67; RESP 17; O2SAT 96
--- NOTE | 2024-08-13 13:39 | W.ED.CHESTPA ---
HPI - Chest Pain General: Chief Complaint: Chest Pain Stated Complaint: chest pain (mostly subsided) Time Seen by Provider: 08/13/24 13:00 Source: patient Mode of arrival: ambulatory Limitations: no limitations History of Present Illness: Patient is a 23-year-old male with history of hypertension here for an episode of chest pain that occurred a few hours ago. Patient states he was seated at a computer when he began developing left-sided chest pain that radiated into his neck. Symptoms prompted him to check his vitals at home. He states his blood pressure was 180s systolic and his pulse was 50 which is abnormal for him. He does have hypertension and takes amlodipine. He states his blood pressures at home usually run systolically in the 140s. Patient states his chest pain has pretty well since resolved and he is no longer complaining of this at time of my initial examination. Blood pressure at time of my exam was 140s/80s. MD complaint: chest pain Onset (ago): hour(s) Timing of current episode: now resolved Prior episodes: No Onset: during rest Pain location: left chest Pain radiation: neck Relieving factors: nothing Exacerbating factors: nothing Associated symptoms: Deny abdominal pain, dyspnea, fever(s), nausea, palpitations, syncope or vomiting Risk Factors: Coronary artery disease risk factors: hypertension Thoracic aortic dissection risk factors: none Related Data Home Medications ?Medication ?Instructions ?Recorded ?Confirmed amlodipine 10 mg tablet 10 mg PO DAILY 12/28/20 12/27/23 amlodipine 5 mg tablet 5 mg 12/17/22 12/27/23 Previous Rx's ?Medication ?Instructions ?Recorded lidocaine HCl 2 % mucosal solution 1 applic mucous membrane Q4H PRN 01/05/24 (Lidocaine Viscous) pain #100 mL Allergies Allergy/AdvReac Type Severity Reaction Status Date / Time Penicillins Allergy Unknown Verified 06/27/24 19:56 Review of Systems Const: Denies: fever(s), chills, body aches, fatigue or malaise Card: Reports: chest pain (resolved); Denies: palpitations, irregular heart rhythm, edema, swelling of feet/ankles, lightheadedness, syncope, pre-syncope, dyspnea on exertion, orthopnea, leg pain with exertion or acrocyanosis Resp: Denies: dyspnea, productive cough or non-productive cough GI: Denies: abdominal pain, nausea, vomiting or diarrhea : Denies: flank pain, dysuria or hematuria Musc: Denies: neck pain, back pain, extremity pain, extremity swelling, joint pain, joint swelling or joint redness Skin/Breast: Denies: rash Neuro: Denies: headache(s), numbness in extremities, weakness in extremities, sensory changes or dizziness [facility] ED PFSH: Medical History Psoriasis Family History Mother Heart failure Father AAA (abdominal aortic aneurysm) Grandfather AAA (abdominal aortic aneurysm) Social History Smoking and tobacco/nicotine status: never used tobacco/nicotine Alcohol intake: never Substance/Drug Use: never Course Vital Signs: Vital signs: Vital Signs Temperature 98.0 F 08/13/24 13:02 Pulse Rate 67 08/13/24 13:35 Respiratory Rate 17 08/13/24 13:35 Blood Pressure 149/82 08/13/24 13:35 Pulse Oximetry 96 08/13/24 13:35 Oxygen Delivery Me thod Room Air 08/13/24 13:35 MDM - Chest Pain Medical Decision Making Patient is been asymptomatic throughout his stay. His blood work including baseline troponin is unremarkable. CXR without acute abnormality. EKG is nonischemic. Patient will be allowed discharge with return precautions. He can otherwise follow-up with primary care. Blood pressure slightly elevated throughout his stay. Recommend he keep a blood pressure log and follow-up with primary care so that I can adjust his hypertensive medication as needed. Medical Records I reviewed the patient's medical records. Lab Data I reviewed the patient's lab results. 08/13/24 13:31 08/13/24 13:31 Radiology Impressions Chest X-Ray 08/13/24 13:12 IMPRESSION: Stable chest without acute abnormality. Laboratory Results WBC 6.55 10^3/uL (3.29-11.43) 08/13/24 13:31 RBC 5.33 10^6/uL (3.85-5.65) 08/13/24 13:31 Hgb 15.30 g/dL (11.27-16.99) 08/13/24 13:31 Hct 45.7 % (37-53) 08/13/24 13:31 MCV 85.7 fl (82-101) 08/13/24 13:31 MCH 28.7 pg (27-33) 08/13/24 13:31 MCHC 33.5 g/dL (30-55) 08/13/24 13:31 RDW 12.6 % (12.1-15.1) 08/13/24 13:31 Plt Count 230 10^3/cmm (157-399) 08/13/24 13:31 MPV 12.3 fL (7.4-10.4) H 08/13/24 13:31 Neut % (Auto) 63.9 % 08/13/24 13:31 Lymph % (Auto) 25.6 % 08/13/24 13:31 [place] % (Auto) 7.8 % 08/13/24 13:31 Eos % (Auto) 2.0 % 08/13/24 13:31 Baso % (Auto) 0.5 % 08/13/24 13:31 Neut # (Auto) 4.19 10^3/uL (1.8-7.7) 08/13/24 13:31 Lymph # (Auto) 1.7 10^3/uL (0.8-4.8) 08/13/24 13:31 [place] # (Auto) 0.5 10^3/uL (0.2-0.9) 08/13/24 13:31 Eos # (Auto) 0.1 10^3/uL (0.0-0.8) 08/13/24 13:31 Baso # (Auto) 0.0 10^3/uL (0.0-0.1) 08/13/24 13:31 Nucleated RBC % (auto) 0 % 08/13/24 13:31 Nucleated RBCs # 0.0 /100WBC 08/13/24 13:31 Sodium 138 mmol/L (136-145) 08/13/24 13:31 Potassium 4.2 mmol/L (3.5-5.1) 08/13/24 13:31 Chloride 99 mmol/L (98-107) 08/13/24 13:31 Carbon Dioxide 28 mmol/L (22-29) 08/13/24 13:31 Anion Gap 15.2 (5-19) 08/13/24 13:31 BUN 10 mg/dL (6-20) 08/13/24 13:31 Creatinine 0.8 mg/dL (0.7-1.2) 08/13/24 13:31 GFR Calculation 120.9 mL/min (90-130) 08/13/24 13:31 Glucose 91 mg/dL (65-115) 08/13/24 13:31 Calculated Osmolality 285 mOsm/kg (285-295) 08/13/24 13:31 Calcium 9.6 mg/dL (8.5-10.5) 08/13/24 13:31 Total Bilirubin 0.6 mg/dL (0.15-1.2) 08/13/24 13:31 AST 18 U/L (0-40) 08/13/24 13:31 ALT 19 U/L (0-41) 08/13/24 13:31 Alkaline Phosphatase 89 U/L (40-130) 08/13/24 13:31 Troponin T Baseline < 6 ng/L (0-15) 08/13/24 13:31 Total Protein 7.3 g/dL (6.6-8.7) 08/13/24 13:31 Albumin 4.3 g/dL (3.5-5.2) 08/13/24 13:31 Globulin 3.0 g/dL (1.3-4.6) 08/13/24 13:31 All radiology interpretation(s) finalized by discharge Discharge Plan Discharge Patient Disposition: Home Clinical Impression: Non-cardiac chest pain Condition: Stable Prescriptions: No Action amlodipine 10 mg tablet 10 mg PO DAILY amlodipine 5 mg tablet 5 mg lidocaine HCl [Lidocaine Viscous] 2 % solution 1 applic mucous membrane Q4H PRN (Reason: pain) Qty: 100 0RF Discharge Orders: Discharge ED (Routine); Ordered 08/13/24 Ordered By: Reema Poe Referrals: Moon Amaral DO [Primary Care Provider, Family Practice] Patient Instructions: Patient Portal & Jus Instructions Activity Restrictions/Additional Instructions: As we discussed, your workup here was unremarkable. Please follow-up with primary care next week for reevaluation. You may return to the emergency department at anytime for any further concerns you may have. We discussed keeping a blood pressure log at home and following up with primary care so they can adjust blood pressure medications if needed. Print Language: [place] Citizen Coding Level of Care Code ED Family Court Counsellor for Donna Perry
[2024-08-13 13:54] LABS: Hematocrit 45.7 % (37-53); Hemoglobin 15.30 g/dL (11.27-16.99); Mean Corpuscular HGB Conc 33.5 g/dL (30-55); Mean Corpuscular Hemoglobin 28.7 pg (27-33); Mean Corpuscular Volume 85.7 fl (82-101); Nucleated Red Blood Cells % 0 %; Platelet Count 230 10^3/cmm (157-399); Red Blood Count 5.33 10^6/uL (3.85-5.65); White Blood Count 6.55 10^3/uL (3.29-11.43)
[2024-08-13 14:08] LABS: Troponin(5th) Baseline < 6 ng/L (0-15)
[2024-08-13 14:09] LABS: Alanine Aminotransferase 19 U/L (0-41); Albumin Level 4.3 g/dL (3.5-5.2); Alkaline Phosphatase 89 U/L (40-130); Anion Gap 15.2 (5-19); Aspartate Amino Transferase 18 U/L (0-40); Blood Urea Nitrogen 10 mg/dL (6-20); Calcium 9.6 mg/dL (8.5-10.5); Carbon Dioxide 28 mmol/L (22-29); Chloride 99 mmol/L (98-107); Creatinine Clr Calc Pharmacy 188.1494; Globulin 3.0 g/dL (1.3-4.6); Glucose 91 mg/dL (65-115); Osmolality Calculated 285 mOsm/kg (285-295); Potassium 4.2 mmol/L (3.5-5.1); Sodium 138 mmol/L (136-145); Total Protein 7.3 g/dL (6.6-8.7)
[2024-08-13 14:33] VITALS: BP 158/74; PULSE 69; O2SAT 98
== END 2024-08-13 14:35 | disposition home or self-care (01) ==
PROVIDERS: Emergency Provider Physician Assistant; PCP Family Medicine
DX: R07.89 Other chest pain (principal)
CPT/HCPCS: 71045; 80053; 84484; 85025; 93005; 99285

== ENCOUNTER 2025-01-09 17:49 | Emergency (ER) | payer MEDICAID, SELFPAY ==
--- OUTSIDE RECORDS SUMMARY | 2025-01-02 15:20 | XMS_ITS | Encounter Summary ---
Author Organization [facility] Address [address] [place] [address] Care Team Providers Care Truck Driving Instructor Name Role Phone Moon Amaral DO Primary Care Provider [phone] Reason for Visit * Reason Comments Heart Problem C/O palpitations in mornings after waking up. Encounter Details Date Type Department Care Team (Late st Contact Info) Description 01/02/2025 3:20 PM BMW SERVICE TECHNICIAN Office Visit [facility] [place] [address] [place] [address] May, [facility] [address] [place] [address] Palpitations (Primary Dx) Social History [...] on file Legal Sex Male 8:08 AM BMW SERVICE TECHNICIAN Gender Identity Not on file Sexual Orientation Not on file documented as of this encounter Last Filed Vital Signs Vital Sign Reading Time Taken Comments Blood Pressure 120/70 01/02/2025 3:32 PM BMW SERVICE TECHNICIAN Pulse 93 01/02/2025 3:32 PM BMW SERVICE TECHNICIAN Temperature 36.7 C (98.1 F) 01/02/2025 3:32 PM BMW SERVICE TECHNICIAN Respiratory Rate 18 01/02/2025 3:32 PM BMW SERVICE TECHNICIAN Oxygen Saturation 97% 01/02/2025 3:32 PM BMW SERVICE TECHNICIAN Inhaled Oxygen Concentration - - Weight 131.1 kg (289 lb) 01/02/2025 3:32 PM BMW SERVICE TECHNICIAN Height 172.7 cm (5' 8 ) 01/02/2025 3:32 PM BMW SERVICE TECHNICIAN Body Mass Index 43.94 01/02/2025 3:32 PM BMW SERVICE TECHNICIAN documented in this encounter Progress Notes * Alessandra, May, GENERAL OFFICE CLERK - 01/02/2025 3:37 PM CST Chief Complaint [...] author of this note, patient (or authorized retail account representative), and all other persons present consent to the audio recording of this visit for charting documentation purposes. This note was automatically generated, edited by a Quality Port Traffic Manager, and finalized by JOHANNA Botello. SERVICE TECHNICIAN documented in this encounter Plan of Treatment Upcoming Encounters Date Type Department Care Team (Late st Contact Info) Description 04/10/2025 2:00 PM BMW SERVICE TECHNICIAN Office Visit [facility] [place] [address] [place] [address] Layton Rojas, JOHANNA [address] [place] [phone] documented as of this encounter Visit Diagnoses Diagnosis Palpitations- Primary documented in this encounter Additional Health Concerns Assessment Noted Time PHQ-9 Depression Total Score: 6 12/02/19 18 8:00 AM CDT documented as of this encounter Care Teams Truck Driving Instructor Relationship Specialty Start Date End Date Moon Amaral DO [address] [place] [phone] PCP - General Family Practice 01/13/10 documented as of this encounter
--- OUTSIDE RECORDS SUMMARY | 2025-01-07 12:20 | XMS_ITS | Encounter Summary ---
Author Organization [facility] Address [address] [place] [address] Care Team Providers Care Aeronautical Engineering Teacher Name Role Phone Cristin, Moon Kyree MILLARD Primary Care Provider [phone] Reason for Referral * Medication Prior Authorization - Pending Review Specialty Diagnoses / Procedures Referred By David nicole Referred To Contact Diagnoses Morbid obesity with body mass index (BMI) of 40.0 or higher (CMS/HCC) Layton Rojas FNP [address] [place] [address] Phone: tel: fax: Referral ID Status Reason Start Date Expiration Date V isits Requested Visits Authorized [id number] Pending Review 1 1 MACHINERY INSPECTOR Reason for Visit * Reason Comments Follow Up 1 mon f/u. Saw May for heart issues. Encounter Details Date Type Department Care Team (Late st Contact Info) Description 01/07/2025 12:[address] MACHINERY INSPECTOR Office Visit [facility] [address] [place] [address] Layton Rojas FNP [address] [place] [address] Morbid obesity with body mass [...] on file Legal Sex Male 8:[address] MACHINERY INSPECTOR Gender Identity Not on file Sexual Orientation Not on file documented as of this encounter Last Filed Vital Signs Vital Sign Reading Time Taken Comments Blood Pressure 110/60 01/07/2025 12:[address] MACHINERY INSPECTOR Pulse 91 01/07/2025 12:[address] MACHINERY INSPECTOR Temperature 37 C (98.6 F) 01/07/2025 12:[address] MACHINERY INSPECTOR Respiratory Rate 18 01/07/2025 12:[address] MACHINERY INSPECTOR Oxygen Saturation 98% 01/07/2025 12: [address] MACHINERY INSPECTOR Inhaled Oxygen Concentration - - Weight 129.2 kg (284 lb 12.8 oz) 2024 12:[address] MACHINERY INSPECTOR Height 172.7 cm (5' 8 ) 01/07/2025 12:[address] MACHINERY INSPECTOR Body Mass Index 43.3 01/07/2025 12:[address] MACHINERY INSPECTOR documented in this encounter Progress Notes * [...] mass index (BMI) of 40.0 or higher ([facility]) E66.01 278.01 tirzepatide,weight loss, (Zepbound) 7.5 mg/0.5 [...] author of this note, patient (or authorized appeals representative), and all other persons present consent to the audio recording of this visit for charting documentation purposes. This note was automatically generated, edited by a Quality Departmental Secretary, and finalized by JOHANNA Cramer. MACHINERY INSPECTOR documented in this encounter Plan of Treatment Upcoming Encounters Date Type Department Care Team (Late st Contact Info) Description 04/10/2025 2:[address] MACHINERY INSPECTOR Office Visit [facility] [address] [place] [address] Layton Rojas FNP [address] [place] [phone] documented as of this encounter Visit Diagnoses Diagnosis Morbid obesity with body mass index (BMI) of 40.0 or higher ([facility])- Primary Benign hypertension Essential hypertension, benign Bipolar 1 disorder Bipolar I disorder, most recent episode (or current) unspecified documented in this encounter Additional Health Concerns Assessment Noted Time PHQ-9 Depression Total Score: 6 12/02/19 18 8:00 AM CDT documented as of this encounter Care Teams Aeronautical Engineering Teacher Relationship Specialty Start Date End Date Moon Amaral DO [address] [place] [address] PCP - General Family Practice 01/13/10 documented as of this encounter
--- NOTE | 2025-01-09 17:52 | XRR_ITS ---
PROCEDURE INFORMATION: Exam: XR Chest Exam date and time: 01/09/2025 6:03 PM Age: 24 years old Clinical indication: Shortness of breath; Additional info: SOB TECHNIQUE: Imaging protocol: Radiologic exam of the chest. Views: 1 view. COMPARISON: CR XR chest 1V portable [id number] 08/13/2024 1:17 PM FINDINGS: Lungs: Unremarkable. No consolidation. Pleural spaces: Unremarkable. No pleural effusion. No pneumothorax. Heart/Mediastinum: Unremarkable. No cardiomegaly. Bones/joints: Unremarkable. XR/XR chest 1V portable [id number] IMPRESSION: No acute findings.
[2025-01-09 17:56] VITALS: BP 155/84; PULSE 85; RESP 18; TEMP 37.3; O2SAT 97; BMI 41.8
--- OUTSIDE RECORDS SUMMARY | 2025-01-09 17:59 | XMS_ITS | Clinical Summary ---
Author Organization [facility] Address [address] [place] [address] Care Team Providers Care Global Marketing Specialist Name Role Phone Moon Amaral DO Primary [...] PERTUSSIS, HEPATITIS B, AND INACTIVATED POLIOVIRUS VACCINE ([id number]), 0.5ML, IM 09/15/2003 (RECOMBIVAX HB/ENGERIX-B)(0- 19 YRS) [...] on file Legal Sex Male 7:22 AM TOUR BUS DRIVER/GUIDE Gender Identity Not on file Sexual Orientation [...] Medicaid 2020 08/20/2015, 09/22/2011 INFLUENZA VACCINE (#1) 2024 10/19/2017, 2017 DTAP/TDAP/TD VACCINES (6 - T d or Tdap) 09/14/2025 09/15/2015, 09/26/2007, 12/19/2006, Additional history exists HEPATITIS B VACCINES Completed 09/15/2003, 01/06/2002, 2001 HPV VACCINES Completed 09/22/2016, 04/2015, 11/27/2014 Insurance [facility] Care Teams Global Marketing Specialist Relationship Specialty Start Date End Date Moon Amaral DO [address] [place] [phone] PCP - General Family Practice 01/13/10
--- OUTSIDE RECORDS SUMMARY | 2025-01-09 18:00 | XMS_ITS | Data Portability ---
Author Organization [facility] Paul Mckenzie [facility] Cont[facility] Basilio [facility] Address [address] [address] Assessment No assessment recorded. Plan of Treatment Reminders Order Date Submit Date Provider Last Modified By Organization Details Last Modified Time Details Appointments None record ed. Lab None record ed. Referral None record ed. Procedures None record ed. Surgeries None record ed. Imaging None record ed. Medication Orders None record ed. Patient TargetsNo targets recorded. Patient InstructionsNo instructions recorded. Reason for Referral None Reported. Medical Equipment None Reported. Allergies Allergen ID Allergen Name Allergen Category Reaction Reaction Severity Criticality Documentation Date Start Date Code Code System Note Provider Name and Address Organization Details Recorded Time 84831 Product containin g penicilli n (product) medicatio n Not available Not available Not available 09/09/2022 55900 8001 SNOMED Comme nt: Recor ded 01/29 5:47P M by Rachelle Juarez LPN, Offic e Visit ; Promo khalida; Marcelino valenzuela ce: *; ; Not Available [facility] 3 02:25:16 65378 aspirin medicatio n Not available Not available Not available 09/09/2022 1191 RxNorm Comme nt: Recor ded 01/29 5:47P M by Rachelle Juarez LPN, Offic e Visit ; Promo khalida; Marcelino valenzuela ce: *; ; Not Available [facility] 3 02:25:16 Medications Name Sig Start Date Stop Date Status Note LastModified by Organization Details LastModified Time Rondec DM 4 mg-45 mg-15 mg/5 mL oral syrup QID/P RN 006 active Recorded 01/29/2006 5:47PM by JOHANNA Diehl, , Office Visit; Not Available Not Available Not Available Vitals Date Recorded Body weight Body mass index (BMI) Body height Respiratory rate Heart rate Oxygen saturation Provider Name and Address Organization Details Last Updated DateTime 4 220889. 63 g 47.1 kg/m2 172.72 cm 19 /min 91 /min 97 % FELICITA [facility], [facility] 4 14:06:09 Social History None recorded. Functional Status None recorded. Mental Status None recorded. Family History Nothing Reported Notes:MVP, cancer; cervical, breast, anxiety, hypertension Medical History No medical history recorded. Past Encounters Encounter ID Performer Location Encounter Start Date Encounter Closed Date Diagnosis/Indication Diagnosis SNOMED-CT Code Diagnosis ICD10 Code Diagnosis IMO Codes Diagnosis Note [id number] JOHANNA PEREA [facility] ([facility] [address] [place] [phone] 09/15/2023 13:52:30 09/15/2023 15:10:19 Pain due to dental trauma [id number] R52 Continue tramadol. Add IBU as needed for pain. Use otc orajel. Return to dentist on Sunday. Health Concerns Section Related Observation LastModified by Organization Detai ls LastModified Time None Recorded Concern Status LastModified by Organization Details LastModified Time None Recorded Advance Directives Directive None Recorded Payers Insurance Date Sequence Insurance Name Policy Number Policy Burgos Covered Member ID Burgos Member ID Guarantor Name 09/15/2023 1 [facility] (MEDICAID REPLACEMENT - HMO) ANASTASIIA Cedeno [id number] Agustin Cedeno Notes Date Note Type Note Provider Name and Address Organization Details Recorded Time 09/15/2023 text/html ROS as noted in the HPI Patient states that he went to have a tooth pulled that was broken and the dentist was unable to remove the whole tooth. The part that remains has been bothering him for several days. He has been using cold water to numb the tooth. He went to the ER and was given Tramadol and an antibiotic. He states the Tramadol is not working well. He's taken Tylenol as well. JOHANNA PEREA [address] [place] [address], [phone], [facility] 09/15/2023 14:42:53
--- OUTSIDE RECORDS SUMMARY | 2025-01-09 18:00 | XMS_ITS | Encounter Summary ---
Author Organization [facility] Address [address] [place] [address] Care Team Providers Care Gelatin Powder Mixer Name Role Phone Moon Amaral DO Primary Care Provider [phone] Encounter Details Date Type Department Care Team ([facility] Contact Info) Description 12/14/2014 Ancillary Orders [facility] Pre-Registration [place] CALL TO MAKE APPOINTMENT ONLY [address] [place] [address] Malik Brian Jr., MD [address] [address] Essential hypertension, benign (Primary Dx) Social History Tobacco Use Types Packs/Day Years Used Date Smoking Tobacco: Never Alcohol Use Standard Drinks/Week Comments Not Asked 0 (1 standard drink = 0.6 oz pur e alcohol) Sex and Gender Information Value Date Recorded Sex Assigned at Not on file Legal Sex Male 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 Gender Identity Not on file Sexual Orientation Not on file documented as of this encounter Plan of Treatment Not on file documented as of this encounter Visit Diagnoses Diagnosis Essential hypertension, benign- Primary documented in this encounter Additional Health Concerns Infection Onset Date Last Indicated Resolved Time R/O COVID-19 11/12/2019 11/12/2019 11/14/2019 12:1 5 AM CDT documented as of this encounter Care Teams Gelatin Powder Mixer Relationship Specialty Start Date End Date Moon Amaral DO [address] [place] [address] PCP - General Family Practice 01/13/10 documented as of this encounter
--- OUTSIDE RECORDS SUMMARY | 2025-01-09 18:00 | XMS_ITS | Patient Health Record ---
Author Organization [facility] Address [address] [place] [address] Care Team Providers Care Law Enforcement Instructor Name Role Phone Emil Sam Primary Care Provider Allergies Allergen (clinical drug ingredient) Drug/Non Drug [...] History Observation Description Sex Assigned At Male Plan Of Treatment No Information Insurance Providers Payer Name Payer Address Payer Phone Subscriber Number Group Number Insured Name Patient Relationship to Insured Coverage Start Date Coverage End Date [facility] [employer] [place] [address] [place] [phone] [id number] Agustin Cedeno Self - patient is the insured [facility] Plan Dental [address] [place] [phone] [id number] Wilian Agustin Self - patient is the insured Medical (General) History Medical History History ICD Code ADHD High blood Pressure
--- OUTSIDE RECORDS SUMMARY | 2025-01-09 18:00 | XMS_ITS | Clinical Summary ---
Author Organization [facility] Address [address] [place] [address] Care Team Providers Care Forensic Science Examiner Name Role Phone Moon Amaral DO Primary Care Provider Allergies Active Allergy Reactions Criticality Noted Date Comments Alpha-Gal (Xanogvrkp-Dypld-2,3-Ga lactose) Abdominal Pain High 08/11/2024 Aspirin Unknown 07/11/2024 aspirin Iodinated Contrast Media Other (See Comments) 07/25/2024 Tingling in throat and face Penicillins Unknown 10/29/2008 Shellfish Containing Products Unknown 11/16/2023 Pins and needles in throat after eating shrimp Medications clobetasoL (TEMOVATE) 0.05 % CreamIndications: Psoriasis Apply to affected area 2 times daily. 60 Gram 3 11/26/19 24 Active Clindamycin-Benzo yl Peroxide 1.2 %(1 % base) -5 % GelIndications:Ac ne vulgaris Apply to affected area daily. 45 Gram 04/24/19 25 Active guanFACINE (INTUNIV) 2 mg Extended Release 24 hour tabletIndications :Attention deficit hyperactivity disorder (ADHD), combined type Take 1 Tablet (2 mg) by mouth daily. 90 Tablet 3 06/17/19 25 Active hydrocortisone (HYTONE) 2.5 % Ointment APPLY TWICE DAILY TO GROIN, FACE, AND EYE LIDS NEEDED. USE NO MORE THAN TWO WEEKS A MONTH 06/20/19 25 Active Retin-A 0.05 % Cream APPLY PEA-SIZED AMOUNT AT NIGHT TO CLEAN DRY FACE, CHEST, AND BACK 06/20/19 25 Active EPINEPHrine (EPIPEN) 0.3 mg/0.3 mL Auto-InjectorIndi cations:Allergic reaction to alpha-gal Inject 0.3 mL (0.3 mg) by intramuscular injection 1 time daily as needed for Anaphylaxis. 2 Each 2 08/12/19 25 Active amLODIPine (NORVASC) 5 mg tabletIndications :Benign hypertension Take 1 Tablet (5 mg) by mouth daily. 90 Tablet 4 10/25/19 25 Active tirzepatide, weight loss, (Zepbound) 7.5 mg/0.5 mL Pen InjectorIndicatio ns:Morbid obesity with body mass index (BMI) of 40.0 or higher (CMS/HCC) Inject 0.5 mL (7.5 mg) by subcutaneous injection every 7 days. 6 mL 3 01/08/20 25 Active ARIPiprazole (Abilify) 10 mg tabletIndications :Bipolar 1 disorder (CMS/HCC) Take 1 Tablet (10 mg) by mouth daily. 90 Tablet 3 01/08/20 25 Active tirzepatide, weight loss, (Zepbound) 5 mg/0.5 mL Pen InjectorIndicatio ns:Morbid obesity with body mass index (BMI) of 40.0 or higher (CMS/HCC) Inject 0.5 mL (5 mg) by subcutaneous injection every 7 days. 6 mL 3 11/26/19 25 025 Discontin ued(Dose/ form adjustmen t) ARIPiprazole (Abilify) 5 mg tabletIndications :Bipolar 1 disorder (CMS/HCC),Chief Service Observer y hallucinations Take 1 Tablet (5 mg) by mouth daily. 30 Tablet 11 11/26/19 25 025 Discontin ued(Dose/ form adjustmen t) Active Problems Problem Noted Date Diagnosed Date Auditory hallucinations 11/25/2024 Allergic reaction to alpha-gal 08/11/2024 Snores 05/27/2024 Benign hypertension 04/23/2024 Morbid obesity with body mass index (BMI) of 40. 0 or higher 04/23/2024 Acne vulgaris 04/23/2024 Declined influenza vaccine 11/16/2023 Primary insomnia 09/07/2021 Anxiety 11/29/2017 Bipolar 1 disorder 10/19/2017 Environmental allergies 04/25/2013 Psoriasis 04/10/2013 ADHD (attention deficit hyperactivity disorder) 05/11/2010 Resolved Problems Problem Noted Date Diagnosed Date Resolved Date Deliberate self-cutting 12/01/201711/12 Generalized anxiety disorder 03/29/2011 04/10/2013 Dysfunction of eustachian tube 10/29/2008 01/08/2013 Hypertrophy of tonsil with adenoids 10/29/2008 01/08/2013 Allergic rhinitis, cause unspecified 10/29/2008 04/10/2013 Encounters Date Type Department Care Team Description 01/07/2025 12:20 PM SURGICAL ELASTIC KNITTER Office Visit [facility] [address] [place] [address] Layton Rojas, INTERVENTIONAL TECH Morbid obesity with body mass index (BMI) of 40.0 or higher ([facility]/HCC) (Primary Dx); Benign hypertension; Bipolar 1 disorder 01/02/2025 3:20 PM SURGICAL ELASTIC KNITTER Office Visit [facility] [address] [place] [address] Alessandra May, INTERVENTIONAL TECH Palpitations (Primary Dx) 12/31/2024 Telephone [facility] [address] [place] [address] Moon Amaral, DO Patient Communication 12/23/2024 External Device Data STL ABSTRACTION Provider, Abstract 12/23/2024 External Device Data STL ABSTRACTION Provider, Abstract 12/23/2024 External Device Data ST[facility] ABSTRACTION Provider, Abstract 11/25/2024 2:20 PM CDT Office Visit [facility] [address] [place] [address] Layton Rojas, INTERVENTIONAL TECH Morbid obesity with body mass index (BMI) of 40.0 or higher (CMS/HCC) (Primary Dx); Bipolar 1 disorder; Auditory hallucinations 11/04/2024 External Device Data STL ABSTRACTION Provider, Abstract 11/04/2024 External Device Data STL ABSTRACTION Provider, Abstract 11/04/2024 External Device Data STL ABSTRACTION Provider, Abstract 10/28/2024 External Device Data STL ABSTRACTION Provider, Abstract 10/24/2024 1:40 PM CDT Office Visit [facility] [address] [place] [phone] Layton Rojas FNP Morbid obesity with body mass index (BMI) of 40.0 or higher (CMS/HCC) (Primary Dx); Benign hypertension; Bipolar 1 disorder; Attention deficit hyperactivity disorder (ADHD), combined type; At risk for sleep apnea 10/21/2024 Telephone [facility] [id number] [place] [address] Erin Moon MD mailed watchPAT 10/14/2024 External Device Data STL ABSTRACTION Provider, Abstract from Last 3 Months Immunizations Immunization Administration Dates Next Due (ACTHIB/HIBERIX)(2 MOS-5 YRS /6 WKS-4 YRS) HAEMOPHILUS INFLUENZAE TYPE B VACCINE (HIB), PRP-T CONJUGATE, 4 DOSE, 0.5 ML IM 09/15/2003 (ADACEL/BOOSTRIX)(10 YR UP) TDAP VACCINE, 0.5ML, IM 09/15/2015 (GARDASIL)(9-45 YRS) HUMAN P APILLOMAVIRUS VACCINE, TYPES 6, 11, 16, 18, QUADRIVALENT (4VHPV), 3 DOSE, IM 09/22/2016,09/15/2015,11/27/2014 (INFANRIX)(6 WKS-6 YRS) DIPT HERIA, TETANUS TOXOIDS, AND ACCELLULAR PERTUSSIS VACCINE (DTAP), 0.5 ML IM 09/26/2007,12/19/2006,01/06/2002 (IPOL)(6 WKS AND UP) POLIOVI FRANCESCA VACCINE, INACTIVATED (IPV), 3 DOSE, SUBCUT OR IM 09/26/2007,12/19/2006,01/06/2002 (M-M-R II/PRIORIX)(12 MO UP) MEASLES, MUMPS AND RUBELLA VIRUS VACCINE, 0.5 ML IM/SUBCUT 12/19/2006,09/15/2003 (PEDIARIX)(6 WKS-6 YRS) DIPT HERIA, TETANUS TOXOIDS, ACELLULAR PERTUSSIS, HEPATITIS B, AND INACTIVATED POLIOVIRUS VACCINE (KZIZ-ZBPS-UVB), 0.5ML, IM 09/15/2003 (RECOMBIVAX HB/ENGERIX-B)(0- 19 YRS) HEPATITIS B VACCINE 5 MCG/0.5 ML OR 10 MCG/0.5 ML PED OR ADOL 3 DOSE (PF), IM 01/06/2002,2001 (VARIVAX)(12 MOS UP)VARICELL A VIRUS VACCINE (PF) 0.5 ML, SUB CUT 09/26/2007 Dt Dtp Dtap Vaccine 09/26/2007,12/19/2006 HIB Vaccine 01/06/2002 HIB, Unspecified Formulation 01/06/2002 HPV Vaccine 3 Dose IM VFC 09/15/2015 INFLUENZA VACCINE QUADRIVALE NT 3 YR UP PF IM 03/14/2017 INFLUENZA VACCINE QUADRIVALE NT 6 MOS UP PF IM 03/14/2017 IPV/OPV 09/26/2007,12/19/2006 Meningococcal A Conjugate Vaccine IM VFC 016 Meningococcal A Conjugate Vaccine IM 09/15/2015 Meningococcal ACWY Vaccine, Unspecified Formulation 09/15/2015 Pneumococcal 7-valent conjugate vaccine IM 09/14 [...] Passive Smoke Exposure: Current Smokeless Tobacco: Never Tobacco Cessation:Ready to Q uit: Yes; Counseling Given: Yes Alcohol Use Standard Drinks/Week Comments Yes 0 (1 standard drink = 0.6 oz pur e alcohol) occassionlly Feeling Safe Answer Date Recorded Are you in a relationship wi th someone who hurts you emotionally and/or physically? No 01/05/2024 Sex and Gender Information Value Date Recorded Sex Assigned at Not on file Legal Sex Male 8:08 AM SURGICAL ELASTIC KNITTER Gender Identity Not on file Sexual Orientation Not on file Last Filed Vital Signs Vital Sign Reading Time Taken Comments Blood Pressure 110/60 01/07/2025 12:11 PM SURGICAL ELASTIC KNITTER Pulse 91 01/07/2025 12:11 PM SURGICAL ELASTIC KNITTER Temperature 37 C (98.6 F) 01/07/2025 12:11 PM SURGICAL ELASTIC KNITTER Respiratory Rate 18 01/07/2025 12:1 1 PM SURGICAL ELASTIC KNITTER Oxygen Saturation 98% 01/07/2025 12: 11 PM SURGICAL ELASTIC KNITTER Inhaled Oxygen Concentration - - Weight 129.2 kg (284 lb 12.8 oz) 2024 12:11 PM SURGICAL ELASTIC KNITTER Height 172.7 cm (5' 8 ) 01/07/2025 12:1 1 PM SURGICAL ELASTIC KNITTER Body Mass Index 43.3 01/07/2025 12:11 PM SURGICAL ELASTIC KNITTER Plan of Treatment Upcoming Encounters Date Type Department Care Team (Late st Contact Info) Description 04/10/2025 2:00 PM SURGICAL ELASTIC KNITTER Office Visit [facility] [address] [place] [address] Layton Rojas, [facility] [address] [place] [phone] Health Maintenance Due Date Last Done Comments Preventative Visit-Managed Medicaid 07/16/2022 07/15/2021, 08/20/2015, 09/22/2011 INFLUENZA VACCINE (#1) 2024 2, 03/31/2021, 10/19/2017, Additional history exists DTAP/TDAP/TD VACCINES (7 - T d or Tdap) 09/14/2025 09/15/2015, 09/15/2015, 09/26/2007, Additional history exists HEPATITIS B VACCINES Completed 09/15/2003, 01/06/2002, 2001 HPV VACCINES Completed 09/22/2016, 0804/2015, 09/15/2015, Additional history exists Abdominal Aortic Aneurysm (A AA) Screening Completed 08/07/2017 Procedures Procedure Name Priority Date/Time Associated Diagnosis Comments US ABDOMEN COMPLETE Routine 08/07/2017 1 0:35 AM CDT Abdominal pain, acute, right upper quadrant from Last 3 Months or Most Recently Relevant to Health Maintenance Results * US ABDOMEN COMPLETE (08/07/2017 10:35 AM CDT) Anatomical Region Laterality Modality Abdomen Other Impressions 08/07/2017 7:30 PM CDT Please see below. Exam: US ABDOMEN COMPLETE Date/Time of Exam: 08/07/2017 10:35 AM Reason For Exam: Abdominal pain, acute, right upper quadrant. Findings: COMPARISON: None. LIVER Normal size, normal echogenicity, Normal shape with smooth contour..No concerning hepatic lesion. GALLBLADDER No stones or sludge seen. Normal wall thickness at 2.4 mm. Sonographic Moise sign: Negative. BILE DUCTS Common bile duct 2.8 mm. PANCREAS Not seen due to overlying bowel gas. SPLEEN Mild splenomegaly. Length 14.0 x 5.8 x 14.0 cm with volume of 575 mL. RIGHT KIDNEY Length 12.6 cm Normal size and morphology. No hydronephrosis. No nephrolithiasis.No concerning renal lesion. LEFT KIDNEY Length 11.5 cm Normal size and morphology. No hydronephrosis. No nephrolithiasis.No concerning renal lesion. PERITONEUM / ASCITES Not visualized ABDOMINAL AORTA/IVC Visualized portions unremarkable. IMPRESSION: 1. Mild splenomegaly. 2. Unremarkable appearance of the liver. No focal parenchymal lesion. 3. No evidence of acute cholecystitis or biliary obstruction. [id number] Narrative Procedure Note Otto Sanchez MD - 04/08/2021 IMPRESSION Please see below. Exam: US ABDOMEN COMPLETE Date/Time of Exam: 08/07/2017 10:35 AM Reason For Exam: Abdominal pain, acute, right upper quadrant. Findings: COMPARISON: None. LIVER Normal size, normal echogenicity, Normal shape with smooth contour..No concerning hepatic lesion. GALLBLADDER No stones or sludge seen. Normal wall thickness at 2.4 mm. Sonographic Omise sign: Negative. BILE DUCTS Common bile duct 2.8 mm. PANCREAS Not seen due to overlying bowel gas. SPLEEN Mild splenomegaly. Length 14.0 x 5.8 x 14.0 cm with volume of 575 mL. RIGHT KIDNEY Length 12.6 cm Normal size and morphology. No hydronephrosis. No nephrolithiasis.No concerning renal lesion. LEFT KIDNEY Length 11.5 cm Normal size and morphology. No hydronephrosis. No nephrolithiasis.No concerning renal lesion. PERITONEUM / ASCITES Not visualized ABDOMINAL AORTA/IVC Visualized portions unremarkable. IMPRESSION: 1. Mild splenomegaly. 2. Unremarkable appearance of the liver. No focal parenchymal lesion. 3. No evidence of acute cholecystitis or biliary obstruction. [id number] us Moon Amaral DO ORDERABLES Final Resul t from Last 3 Months or Most Recently Relevant to Health Maintenance Insurance [address] [place] [id number] [facility] [id number] Member Subscriber Plan / Payer (Ef fective 2024-Present) Name:Agustin Cedeno Relation to Subscriber:Self Name:Agustin Cedeno Payer ID:[id number] (NAIC) Group ID:[id number] Type:HMO Address: [place] [phone] Care Teams Forensic Science Examiner Relationship Specialty Start Date End Date Moon Amaral DO [address] [place] [facility] [place] [address] PCP - General Family Practice 01/13/10
--- NOTE | 2025-01-09 18:02 | XRR_ITS ---
PROCEDURE INFORMATION: Exam: XR Soft Tissue Neck Exam date and time: 01/09/2025 6:05 PM Age: 24 years old Clinical indication: Neck pain; Additional info: Feels like it is swollen TECHNIQUE: Imaging protocol: Radiologic exam of the soft tissues of the neck. COMPARISON: CR (CHEST, ) 01/09/2025 6:03 PM FINDINGS: Airway: Normal. No abnormal narrowing. Soft tissues: Normal. Normal epiglottis. Bones/joints: Unremarkable. XR/XR soft tissue neck [id number] IMPRESSION: No acute findings.
--- NOTE | 2025-01-09 18:03 | ED_ITS ---
HPI - General Adult General: Chief complaint: Upper Respiratory Infection Stated complaint: SOB Throat Swelling Time Seen by Provider: 01/09/25 17:55 Source: patient Mode of arrival: ambulatory Limitations: no limitations History of Present Illness: Patient is a 24-year-old male who presents to ED today feeling like his throat is swelling. Patient states he has had similar symptoms before lasting anywhere from 20 to 40 minutes up to a few hours. He states never if symptoms lasted this long before thus prompting his emergency evaluation. He states he is having pain when swallowing. He feels like he is having trouble breathing due to the swelling sensation in his throat. He has not noticed any neck swelling. No recent illness or fevers. He denies dental pain or dental infection. He has not noticed any swelling to his lips or tongue. Patient is not complaining of chest pain. Denies foreign body/globulus sensation. He is drinking water in the room without difficulty. No change in voice. No drooling. Onset (ago): hour(s) Severity: mild Relieving factors: none Exacerbating factors: none Associated symptoms: Reports dyspnea; Deny chest pain, headache(s), malaise, nausea, rash, palpitations, syncope or vomiting Treatments prior to arrival: none Related Data Home Medications ?Medication ?Instructions ?Recorded ?Confirmed amlodipine 10 mg tablet 10 mg PO DAILY 12/28/2012/13 amlodipine 5 mg tablet 5 mg 12/17/22 12/27/23 Previous Rx's ?Medication ?Instructions ?Recorded lidocaine HCl 2 % mucosal solution 1 applic mucous mem brane Q4H PRN 01/05/24 (Lidocaine Viscous) pain #100 mL Allergies Allergy/AdvReac Type Severity Reaction Status Date / Time Penicillins Allergy Unknown Verified 06/27/24 19:56 Review of Systems Const: Denies: fever(s), chills, body aches, fatigue or malaise Eyes: Denies: change in vision, blurry vision, photophobia, floaters or seeing flashes ENMT: Reports: throat pain and odynophagia; Denies: uvular edema, enlarged tonsils, hoarseness, mouth pain, swelling of lips/tongue, oral sores, ear or mastoid pain, nasal discharge, nasal congestion or sinus pain Card: Denies: chest pain, palpitations, irregular heart rhythm, edema, swelling of feet/ankles, lightheadedness, syncope, pre-syncope, dyspnea on exertion, orthopnea, leg pain with exertion or acrocyanosis Resp: Reports: dyspnea; Denies: productive cough, non-productive cough, wheezing, stridor, pain on inspiration, change in phlegm color, hemoptysis or chest congestion GI: Denies: abdominal pain, nausea, vomiting or diarrhea Musc: Denies: neck pain, back pain, extremity pain, extremity swelling, joint pain or joint swelling Skin/Breast: Denies: rash Neuro: Denies: headache(s), numbness in extremities, weakness in extremities or sensory changes PFSH ED PFSH: Medical History Psoriasis Family History Mother Heart failure Father AAA (abdominal aortic aneurysm) Grandfather AAA (abdominal aortic aneurysm) Social History Smoking and tobacco/nicotine status: never used tobacco/nicotine Alcohol intake: never Substance/Drug Use: never Physical Exam Const: COMMON NORMALS: no acute distress, no limitations, alert and well nourished GENERAL APPEARANCE: cooperative NUTRITIONAL APPEARANCE: obese ORIENTATION/CONSCIOUSNESS: Yes awake, Yes oriented to person, Yes oriented to place and Yes oriented to time HENMT: COMMON NORMALS: normocephalic, atraumatic, external ears normal, EAC's normal, TM's normal bilaterally, Normal external nose present, Normal nasal mucous membranes and turbinates present, moist oral mucous membranes, oropharynx normal, dentition normal and gingiva normal HEAD & SCALP: normal to inspection, normocephalic and atraumatic FACE & SINUS: normal facial exam NOSE: Normal external nose present and Normal nasal mucous membranes and turbinates present EXTERNAL EAR: Yes external ears normal EXTERNAL AUDITORY CANAL: EAC's normal TYMPANIC MEMBRANE: TM's normal bilaterally MOUTH: Normal oral and palatal mucosa present, lip normal, tongue normal, Normal salivary glands and ducts present and other (floor of mouth is soft/non- elevated) TEETH & GINGIVA: Yes fair dentition THROAT: posterior oropharynx normal and tonsils normal; no uvular edema Eye: GENERAL EYE: appearance normal, both eyes and all related structures Neck/C-Spine: COMMON NORMALS: full ROM, no lymphadenopathy and no meningeal signs GENERAL: Yes normal visual inspection, No anterior neck swelling and No submandibular swelling Resp: COMMON NORMALS: normal respiratory effort and clear to auscultation bilaterally AUSCULTATION: clear to auscultation bilaterally Cardio: COMMON NORMALS: regular rate and regular rhythm RATE: regular rate RHYTHM: regular rhythm Neuro: SENSORIUM/ORIENTATION: Yes alert, Yes oriented to person, Yes oriented to place and Yes oriented to time MENINGEAL SIGNS: Yes no meningeal signs Course Vital Signs: Vital signs: Vital Signs Temperature 99.2 F 01/09/25 17:56 Pulse Rate 85 01/09/25 17:56 Respiratory Rate 18 01/09/25 17:56 Blood Pressure 155/84 01/09/25 17:56 Pulse Oximetry 97 01/09/25 17:56 Oxygen Delivery Me thod Room Air 01/09/25 17:56 MDM - General Adult Medical Decision Making Patient here with a sensation that his throat is closing and feels like he is having a difficult time breathing. He arrives in absolutely no acute distress. He is drinking water without difficulty. No change in voice. No drooling. No fevers. Physical exam is completely benign. He is satting normal on room air. CXR and XR soft tissue of his neck are unremarkable. Nothing to suggest airway narrowing or epiglottitis. Patient was given IM Decadron and on reexamination he tells me that he is tremendously better and was actually sleeping when I went into the room. At this time patient will be allowed discharge. Strict return to ED precautions discussed. Medical Records I reviewed the patient's medical records. Lab Data I reviewed the patient's lab results. Laboratory Results Group A Strep Rapid Negative (Negative) 01/09/25 18:07 XR interpretation done by ED provider, pending radiology final review Discharge Plan Discharge Patient Disposition: Home Clinical Impression: Sensation of swollen throat Condition: Stable Prescriptions: No Action amlodipine 10 mg tablet 10 mg PO DAILY amlodipine 5 mg tablet 5 mg lidocaine HCl [Lidocaine Viscous] 2 % solution 1 applic mucous membrane Q4H PRN (Reason: pain) Qty: 100 0RF Discharge Orders: Discharge ED (Routine); Ordered 01/09/25 Ordered By: Reema Poe Referrals: Moon Amaral DO [Primary Care Provider, Family Practice] Patient Instructions: Patient Portal & Jus Instructions Activity Restrictions/Additional Instructions: As we discussed, you indicated that the steroids helped tremendously with symptoms. We will allow discharge with return precautions including worsening pain, trouble swallowing, trouble breathing, fevers, generally feeling worse or unwell, or any other concerns you may have. Print Language: [place] Coding Level of Care Code ED Director Content Marketing for Donna Perry
[2025-01-09 18:23] LABS: Rapid Strep A Test Negative (Negative)
[2025-01-09 18:51] VITALS: BP 155/78; PULSE 89; O2SAT 98
== END 2025-01-09 18:49 | disposition home or self-care (01) ==
PROVIDERS: Emergency Provider Physician Assistant; PCP Family Medicine
DX: J39.2 Other diseases of pharynx (principal)
CPT/HCPCS: 70360; 71045; 87081; 87880; 96372; 99284; J1100

== ENCOUNTER 2025-01-09 23:41 | Emergency (ER) | payer MEDICAID, SELFPAY ==
--- OUTSIDE RECORDS SUMMARY | 2025-01-02 15:20 | XMS_ITS | Encounter Summary ---
Author Organization [facility] Address [address] [place] [address] Care Team Providers Care Business Account Leader Name Role Phone Moon Amaral DO Primary Care Provider [phone] Reason for Visit * Reason Comments Heart Problem C/O palpitations in mornings after waking up. Encounter Details Date Type Department Care Team (Late st Contact Info) Description 01/02/2025 3:20 PM HVAC DESIGN ENGINEER Office Visit [facility] [place] [address] [place] [address] May, [facility] [address] [place] [address] Palpitations (Primary Dx) Social History Tobacco Use Types Packs/Day Years Used Date Smoking Tobacco: Some Days Cigars Passive Smoke Exposure: Current Smokeless Tobacco: Never Alcohol Use Standard Drinks/Week Comments Yes 0 (1 standard drink = 0.6 oz pur e alcohol) occassionlly Feeling Safe Answer Date Recorded Are you in a relationship wi th someone who hurts you emotionally and/or physically? No 01/05/2024 Sex and Gender Information Value Date Recorded Sex Assigned at Not on file Legal Sex Male 8:08 AM HVAC DESIGN ENGINEER Gender Identity Not on file Sexual Orientation Not on file documented as of this encounter Last Filed Vital Signs Vital Sign Reading Time Taken Comments Blood Pressure 120/70 01/02/2025 3:32 PM HVAC DESIGN ENGINEER Pulse 93 01/02/2025 3:32 PM HVAC DESIGN ENGINEER Temperature 36.7 C (98.1 F) 01/02/2025 3:32 PM HVAC DESIGN ENGINEER Respiratory Rate 18 01/02/2025 3:32 PM HVAC DESIGN ENGINEER Oxygen Saturation 97% 01/02/2025 3:32 PM HVAC DESIGN ENGINEER Inhaled Oxygen Concentration - - Weight 131.1 kg (289 lb) 01/02/2025 3:32 PM HVAC DESIGN ENGINEER Height 172.7 cm (5' 8 ) 01/02/2025 3:32 PM HVAC DESIGN ENGINEER Body Mass Index 43.94 01/02/2025 3:32 PM HVAC DESIGN ENGINEER documented in this encounter Progress Notes * Alessandra, May, INFORMATION SYSTEMS SECURITY OFFICER - 01/02/2025 3:37 PM CST Chief Complaint Patient presents with Heart Problem C/O palpitations in mornings after waking up. History of Present Illness The patient is a 24-year-old male who presents to the clinic for palpitations. He has experienced palpitations intermittently over the past few years, with a total of 4 to 5 episodes. Recently, he has been experiencing daily palpitations upon awakening, which he believes are disrupting his sleep. The palpitations subside temporarily but recur. He describes the sensation as if the lower part of his heart is beating faster than the rest. He reports no other symptoms associated with these episodes. His caffeine intake has been high recently, consuming 6 to 800 mg daily, primarily from energy drinks. However, he abstained from caffeine yesterday and today, and did not experience any palpitations. He also reports no withdrawal symptoms such as headaches. He has been under significant stress recently, leading to poor sleep and increased fatigue, which he has been managing with up to 5 energy drinks per day. 10 point review of systems is otherwise negative except as mentioned above. Past Medical History: Diagnosis Date Allergy seasonal Behavior problem in pediatric patient bipolar and mood disorders Hypertension Otitis media Psoriasis Current Outpatient Medications Medication Instructions amLODIPine (NORVASC) 5 mg, Oral, DAILY ARIPiprazole (ABILIFY) 5 mg, Oral, DAILY Clindamycin-Benzoyl Peroxide 1.2 %(1 % base) -5 % Gel Topical, DAILY clobetasoL (TEMOVATE) 0.05 % Cream Topical, TWO TIMES DAILY EPINEPHrine (EPIPEN) 0.3 mg, IM, DAILY PRN guanFACINE (INTUNIV) 2 mg, Oral, DAILY hydrocortisone (HYTONE) 2.5 % Ointment APPLY TWICE DAILY TO GROIN, FACE, AND EYE LIDS NEEDED. USE NO MORE THAN TWO WEEKS A MONTH Retin-A 0.05 % Cream APPLY PEA-SIZED AMOUNT AT NIGHT TO CLEAN DRY FACE, CHEST, AND BACK Zepbound 5 mg, subCUT, EVERY 7 DAYS No past surgical history on file. Past social, family, and medical history reviewed. BP 120/70 (BP Location: Right arm, Patient Position (BP): Sitting, BP Cuff Size: Large Adult) Pulse 93 Temp 98.1 ??F (36.7 ??C) (Temporal) Resp 18 Ht 5' 8 (1.727 m) Wt 131.1 kg (289 lb) SpO2 97% BMI 43.94 kg/m?? Physical Exam Physical Exam Constitutional: Appearance: Normal appearance. He is obese. HENT: Head: Normocephalic. Right Ear: External ear normal. Left Ear: External ear normal. Mouth/Throat: Mouth: Mucous membranes are moist. Eyes: Conjunctiva/sclera: Conjunctivae normal. Cardiovascular: Rate and Rhythm: Normal rate and regular rhythm. Pulses: Normal pulses. Heart sounds: Normal heart sounds. Pulmonary: Effort: Pulmonary effort is normal. Breath sounds: Normal breath sounds. Abdominal: General: Bowel sounds are normal. Palpations: Abdomen is soft. Musculoskeletal: General: Normal range of motion. Cervical back: Neck supple. Neurological: General: No focal deficit present. Mental Status: He is alert. Psychiatric: Mood and Affect: Mood normal. Assessment & Plan 1. Palpitations: - The patient has experienced palpitations intermittently over the years, with a recent increase infrequency over the past few days. - The patient reported consuming 600-800 mg of caffeine daily through energy drinks, which he has since stopped, resulting in an improvement of symptoms. - The patient was advised to abstain from energy drinks and excessive caffeine. Advised to notify the clinic if palpitations occur without caffeine intake. Follow-up: The patient will follow up in 3 months. JACKLYN Botello The author of this note, patient (or authorized tour sales representative), and all other persons present consent to the audio recording of this visit for charting documentation purposes. This note was automatically generated, edited by a Quality Ethics Manager, and finalized by JOHANNA Botello. DESIGN ENGINEER documented in this encounter Plan of Treatment Upcoming Encounters Date Type Department Care Team (Late st Contact Info) Description 04/10/2025 2:00 PM HVAC DESIGN ENGINEER Office Visit [facility] [place] [address] [place] [address] Layton Rojas, JOHANNA [address] [place] [phone] documented as of this encounter Visit Diagnoses Diagnosis Palpitations- Primary documented in this encounter Additional Health Concerns Assessment Noted Time PHQ-9 Depression Total Score: 6 12/02/19 18 8:00 AM CDT documented as of this encounter Care Teams Business Account Leader Relationship Specialty Start Date End Date Moon Amaral DO [address] [place] [phone] PCP - General Family Practice 01/13/10 documented as of this encounter
--- OUTSIDE RECORDS SUMMARY | 2025-01-07 12:20 | XMS_ITS | Encounter Summary ---
Author Organization [facility] Address [address] [place] [address] Care Team Providers Care Combat Control Name Role Phone Cristin, Moon Kyree MILLRAD Primary Care Provider [phone] Reason for Referral * Medication Prior Authorization - Pending Review Specialty Diagnoses / Procedures Referred By David nicole Referred To Contact Diagnoses Morbid obesity with body mass index (BMI) of 40.0 or higher (CMS/HCC) Layton Rojas FNP [address] [place] [address] Phone: tel: fax: Referral ID Status Reason Start Date Expiration Date V isits Requested Visits Authorized [id number] Pending Review 1 1 OR DIRECTOR INSIGHT Reason for Visit * Reason Comments Follow Up 1 mon f/u. Saw May for heart issues. Encounter Details Date Type Department Care Team (Late st Contact Info) Description 01/07/2025 12:20 PM SENIOR DIRECTOR INSIGHT Office Visit [facility] [address] [place] [address] Layton Rojas FNP [address] [place] [address] Morbid obesity with body mass index (BMI) of 40.0 or higher (CMS/HCC) (Primary Dx); Benign hypertension; Bipolar 1 disorder Social History Tobacco Use Types Packs/Day Years [...] on file Legal Sex Male 8:08 AM SENIOR DIRECTOR INSIGHT Gender Identity Not on file Sexual Orientation Not on file documented as of this encounter Last Filed Vital Signs Vital Sign Reading Time Taken Comments Blood Pressure 110/60 01/07/2025 12:11 PM SENIOR DIRECTOR INSIGHT Pulse 91 01/07/2025 12:11 PM SENIOR DIRECTOR INSIGHT Temperature 37 C (98.6 F) 01/07/2025 12:11 PM SENIOR DIRECTOR INSIGHT Respiratory Rate 18 01/07/2025 12:1 1 PM SENIOR DIRECTOR INSIGHT Oxygen Saturation 98% 01/07/2025 12: 11 PM SENIOR DIRECTOR INSIGHT Inhaled Oxygen Concentration - - Weight 129.2 kg (284 lb 12.8 oz) 2024 12:11 PM SENIOR DIRECTOR INSIGHT Height 172.7 cm (5' 8 ) 01/07/2025 12:1 1 PM SENIOR DIRECTOR INSIGHT Body Mass Index 43.3 01/07/2025 12:11 PM SENIOR DIRECTOR INSIGHT documented in this encounter Progress Notes * Layton Rojas, JOHANNA - 01/07/2025 12:48 PM CST Chief Complaint Patient presents with Follow Up 1 mon f/u. Saw May for heart issues. Patient Active Problem List Diagnosis Code ADHD (attention deficit hyperactivity disorder) F90.9 Psoriasis L40.9 Environmental allergies Z91.09 Bipolar 1 disorder F31.9 Anxiety F41.9 Primary insomnia F51.01 Declined influenza vaccine Z28.21 Benign hypertension I10 Morbid obesity with body mass index (BMI) of 40.0 or higher (CMS/HCC) E66.01 Acne vulgaris L70.0 Snores R06.83 Allergic reaction to alpha-gal T78.19XA Auditory hallucinations R44.0 History of Present Illness The patient is a 24-year-old male presenting for follow-up on multiple health concerns. He was last seen for heart palpitations attributed to excessive caffeine intake, approximately 600 mg. Since reducing his caffeine intake, he has noticed a decrease in palpitations, experiencing themonly once or twice. He continues his weight loss regimen with Zepbound injections, which have been effective. However, he reports weight gain likely due to consuming high-calorie tea and plans to reduce his tea intake. He has not experienced any side effects from Zepbound and used his last pen on Sunday. Today, he experienced stomach cramps, which he suspects might be a side effect of Zepbound, similar to symptoms his mother has experienced. He has not had any vomiting. The patient is currentlyon Abilify 5 mg for bipolar disorder and feels that an increased dose would be beneficial. His dietincludes high-calorie tea, and he has recently reduced his intake of caffeine-containing drinks. 10 point review of systems is otherwise negative except as mentioned above. Past Medical History: Diagnosis Date Allergy seasonal Behavior problem in pediatric patient bipolar and mood disorders Hypertension Otitis media Psoriasis Current Outpatient Medications Medication Instructions amLODIPine (NORVASC) 5 mg, Oral, DAILY ARIPiprazole (ABILIFY) 10 mg, Oral, DAILY Clindamycin-Benzoyl Peroxide 1.2 %(1 [...] CLEAN DRY FACE, CHEST, AND BACK Zepbound 7.5 mg, subCUT, EVERY 7 DAYS No past surgical history on file. Past social, family, and medical history reviewed. BP 110/60 (BP Location: Left arm, Patient Position (BP): Sitting, BP Cuff Size: Large Adult) Pulse 91 Temp 98.6 ??F (37 ??C) (Temporal) Resp 18 Ht 5' 8 (1.727 m) Wt 129.2 kg (284 lb 12.8 oz) SpO2 98% BMI 43.30 kg/m?? Physical Exam Constitutional: General: He is not in acute distress. Appearance: Normal appearance. He is obese. He is not ill-appearing, toxic- appearing or diaphoretic. HENT: Head: Normocephalic. Right Ear: External ear normal. Left Ear: External ear normal. Nose: Nose normal. Eyes: Conjunctiva/sclera: Conjunctivae normal. Cardiovascular: Rate and Rhythm: Normal rate and regular rhythm. Pulses: Normal pulses. Heart sounds: Normal heart sounds. No murmur heard. Pulmonary: Effort: Pulmonary effort is normal. No respiratory distress. Breath sounds: Normal breath sounds. Musculoskeletal: Right lower leg: No edema. Left lower leg: No edema. Skin: General: Skin is warm and dry. Neurological: Mental Status: He is alert and oriented to person, place, and time. Psychiatric: Mood and Affect: Mood normal. Behavior: Behavior normal. Lab Results Component Value Date/Time WBC 7.2 08/05/2024 01:44 PM HGB 15.2 08/05/2024 01:44 PM HCT 46.4 08/05/2024 01:44 PM PLT 245 08/05/2024 01:44 PM MCV 89.1 08/05/2024 01:44 PM Lab Results Component Value Date/Time NA 140 08/05/2024 01:44 PM K 3.6 08/05/2024 01:44 PM CL 103 08/05/2024 01:44 PM CO2 29 08/05/2024 01:44 PM CA 9.2 08/05/2024 01:44 PM BUN 9 08/05/2024 01:44 PM CREAT 0.82 08/05/2024 01:44 PM GLUCOSE 71 08/05/2024 01:44 PM TOTALPROTEIN 7.3 08/05/2024 01:44 PM ALBUMIN 4.4 08/05/2024 01:44 PM BILITOTAL 0.6 08/05/2024 01:44 PM ALKPHOS 68 08/05/2024 01:44 PM AST 18 08/05/2024 01:44 PM ALT 15 08/05/2024 01:44 PM ANIONGAP 13 09/29/2019 04:39 PM BCRATIO SEE NOTE: 08/05/2024 01:44 PM Lab Results Component Value Date/Time TSH 1.29 04/23/2024 04:25 PM Lab Results Component Value Date/Time CHOLTOT 161 04/23/2024 04:25 PM HDL 46 04/23/2024 04:25 PM LDLCALC 99 04/23/2024 04:25 PM TRIGLYCERIDE 75 04/23/2024 04:25 PM Lab Results Component Value Date/Time HGBA1C 4.8 04/23/2024 04:25 PM ICD-10-CM ICD-9-CM 1. Morbid obesity with body mass index (BMI) of 40.0 or higher ([facility]) E66.01 278.01 tirzepatide,weight loss, (Zepbound) 7.5 mg/0.5 mL Pen Injector 2. Benign hypertension I10 401.1 3. Bipolar 1 disorder F31.9 296.7 ARIPiprazole (Abilify) 10 mg tablet Assessment & Plan Weight management: - Weight gain likely due to high-calorie tea - Zepbound effective, reported stomach cramps possibly related to medication - Advise reducing unhealthy drinks and monitoring caloric intake - Increase Zepbound to 7.5 mg, discuss potential GI side effects, report persistent issues Bipolar disorder: - Abilify 5 mg effective but less so currently - Increase Abilify to 10 mg, monitor and report side effects Heart palpitations: - Improved with reduced caffeine intake - Continue limiting caffeine Follow-up in 3 months JACKLYN Sandra The author of this note, patient (or authorized civil rights representative), and all other persons present consent to the audio recording of this visit for charting documentation purposes. This note was automatically generated, edited by a Quality Insights Strategist, and finalized by JOHANNA Cramer. OR DIRECTOR INSIGHT documented in this encounter Plan of Treatment Upcoming Encounters Date Type Department Care Team (Late st Contact Info) Description 04/10/2025 2:00 PM SENIOR DIRECTOR INSIGHT Office Visit [facility] [address] [place] [address] Layton Rojas FNP [address] [place] [phone] documented as of this encounter Visit Diagnoses Diagnosis Morbid obesity with body mass index (BMI) of 40.0 or higher (CMS/[facility])- Primary Benign hypertension Essential hypertension, benign Bipolar 1 disorder Bipolar I disorder, most recent episode (or current) unspecified documented in this encounter Additional Health Concerns Assessment Noted Time PHQ-9 Depression Total Score: 6 12/02/19 18 8:00 AM CDT documented as of this encounter Care Teams Combat Control Relationship Specialty Start Date End Date Moon Amaral DO [address] [place] [address] PCP - General Family Practice 01/13/10 documented as of this encounter
[2025-01-09 23:47] VITALS: BP 204/83; PULSE 106; RESP 16; TEMP 37; O2SAT 96; BMI 41.0
--- OUTSIDE RECORDS SUMMARY | 2025-01-09 23:49 | XMS_ITS | Clinical Summary ---
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 [address] [place] [address] Layton Rojas, CARDIOLOGY ASSOCIATE Morbid obesity with body mass index (BMI) of 40.0 or higher ([facility]/HCC) (Primary Dx); Benign hypertension; Bipolar 1 disorder 01/02/2025 3:20 PM TOUR COORDINATOR Office Visit [facility] [address] [place] [address] Alessandra May, CARDIOLOGY ASSOCIATE Palpitations (Primary Dx) 12/31/[address] [facility] [address] [place] [address] Moon Amaral, DO Patient Communication 12/23/2024 External Device Data STL ABSTRACTION Provider, Abstract 12/23/2024 External Device Data STL ABSTRACTION Provider, Abstract 12/23/2024 External Device Data STL ABSTRACTION Provider, Abstract 11/25/2024 2:20 PM CDT Office Visit [facility] [address] [place] [address] Layton Rojas, CARDIOLOGY ASSOCIATE Morbid obesity with body mass index (BMI) of 40.0 or higher (CMS/HCC) (Primary Dx); Bipolar 1 disorder; Auditory hallucinations 11/04/2024 External Device Data STL ABSTRACTION Provider, Abstract 11/04/2024 External Device Data STL ABSTRACTION Provider, Abstract 11/04/2024 External Device Data STL ABSTRACTION Provider, Abstract 10/28/2024 External Device Data STL ABSTRACTION Provider, Abstract 10/24/2024 1:40 PM CDT Office Visit [facility] [place] [address] [place] [phone] Layton Rojas FNP Morbid obesity with body mass index (BMI) of 40.0 or higher (CMS/HCC) (Primary Dx); Benign hypertension; Bipolar 1 disorder; Attention deficit hyperactivity disorder (ADHD), combined type; At risk for sleep apnea 10/21/2024 Telephone [place] [id number] [place] [address] Erin Moon MD mailed watchPAT 10/14/2024 External [...] PERTUSSIS, HEPATITIS B, AND INACTIVATED POLIOVIRUS VACCINE ([id number]-[id number]), 0.5ML, IM 09/15/2003 (RECOMBIVAX HB/ENGERIX-B)(0- 19 YRS) [...] on file Legal Sex Male 8:08 AM 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 Gender Identity Not on file Sexual Orientation Not on file Last Filed Vital Signs Vital Sign Reading Time Taken Comments Blood Pressure 110/60 01/07/2025 12:11 PM TOUR COORDINATOR Pulse 91 01/07/2025 12:11 PM TOUR COORDINATOR Temperature 37 C (98.6 F) 01/07/2025 12:11 PM TOUR COORDINATOR Respiratory Rate 18 01/07/2025 12:1 1 PM TOUR COORDINATOR Oxygen Saturation 98% 01/07/2025 12: 11 PM TOUR COORDINATOR Inhaled Oxygen Concentration - - Weight 129.2 kg (284 lb 12.8 oz) 2024 12:11 PM TOUR COORDINATOR Height 172.7 cm (5' 8 ) 01/07/2025 12:1 1 PM TOUR COORDINATOR Body Mass Index 43.3 01/07/2025 12:11 PM TOUR COORDINATOR Plan of Treatment Upcoming Encounters Date Type Department Care Team (Late st Contact Info) Description 04/10/2025 2:00 PM TOUR COORDINATOR Office Visit [facility] [address] [place] [address] Layton Rojas, [facility] [address] [place] [phone] Health Maintenance Due Date Last Done Comments [...] evidence of acute cholecystitis or biliary obstruction. [id number] Narrative Procedure Note Otto Sanchez MD - [...] evidence of acute cholecystitis or biliary obstruction. [id number] us Moon Amaral DO ORDERABLES Final Resul t from Last 3 Months or Most Recently Relevant to Health Maintenance Insurance [address] [place] [id number] [facility] [id number] Member Subscriber Plan / Payer (Ef fective 2024-Present) Name:Agustin Cedeno Relation to Subscriber:Self Name:Agustin Cedeno Payer ID:[id number] (NAIC) Group ID:[id number] Type:HMO Address: [place] [phone] Care Teams Muffler Installer Relationship Specialty Start Date End Date Moon Amaral DO [address] [facility] [place] [address] PCP - General Family Practice 01/13/10
--- OUTSIDE RECORDS SUMMARY | 2025-01-09 23:49 | XMS_ITS | Clinical Summary ---
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
--- OUTSIDE RECORDS SUMMARY | 2025-01-09 23:49 | XMS_ITS | Encounter Summary ---
Author Organization [facility] Address [address] [place] [address] Care Team Providers Care Ed Tech Name Role Phone Moon Amaral DO Primary Care Provider [phone] Encounter Details Date Type Department Care Team ([facility] Contact Info) Description 12/14/2014 Ancillary Orders [facility] Pre-Registration [place] CALL TO MAKE APPOINTMENT ONLY [address] [place] [address] Malik Brian Jr., MD [address] [address] Essential hypertension, benign (Primary Dx) Social History Tobacco Use Types Packs/Day Years Used Date Smoking Tobacco: Never Alcohol Use Standard Drinks/Week Comments Not Asked 0 (1 standard drink = 0.6 oz pur e alcohol) Sex and Gender Information Value Date Recorded Sex Assigned at Not on file 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
--- NOTE | 2025-01-09 23:52 | XRR_ITS ---
PROCEDURE INFORMATION: Exam: XR Chest Exam date and time: 01/09/2025 11:54 PM Age: 24 years old Clinical indication: Shortness of breath; Chest pressure; C/O chest pain with SOB TECHNIQUE: Imaging protocol: Radiologic exam of the chest. Views: 1 view. COMPARISON: CR (CHEST, ) 01/09/2025 6:03 PM FINDINGS: Lungs: Unremarkable. No consolidation. Pleural spaces: Unremarkable. No pleural effusion. No pneumothorax. Heart/Mediastinum: Unremarkable. No cardiomegaly. Bones/joints: Unremarkable. XR/XR chest 1V portable [id number] IMPRESSION: No acute findings.
[2025-01-10 00:06] LABS: Hematocrit 43.8 % (37-53); Hemoglobin 15.20 g/dL (11.27-16.99); Mean Corpuscular HGB Conc 34.7 g/dL (30-55); Mean Corpuscular Hemoglobin 29.0 pg (27-33); Mean Corpuscular Volume 83.4 fl (82-101); Nucleated Red Blood Cells % 0 %; Platelet Count 266 10^3/cmm (157-399); Red Blood Count 5.25 10^6/uL (3.85-5.65); White Blood Count 15.68 10^3/uL (3.29-11.43)
--- NOTE | 2025-01-10 00:24 | ED_ITS ---
HPI - SOB/Dyspnea 2 General: Chief Complaint: Shortness of Breath/Dyspnea Stated Complaint: Chest Pain,SOB, HBP, HB Irregular Time Seen by Provider: 01/09/25 23:51 History of Present Illness: HPI Narrative: Patient is a 24-year-old male with history of hypertension, typically managed, recently increased to amlodipine 10 mg daily, and states blood pressure has been running to 120s over 70s, that presents to the emergency room due to left-sided chest pain associated with shortness of breath, difficulty swallowing. Content: Patient was here earlier today with issues of swallowing. Strep screen was negative, and lateral/AP neck was negative. He was given dexamethasone, and discharged home without issues. Approximately 1 hour prior to arrival, patient had left chest pain, tightness. This was associated with his shortness of breath that he complained of earlier, however stated it was slightly better, and difficulty swallowing was better as well. Complaints were at rest. There was no nausea, or diaphoresis. There is no early family history of heart disease. His mom is 58, and has A-fib, and hypertension. She has been ruled out from a coronary artery disease standpoint. His dad has not had cardiac disease. His uncle on his dad side, has history of cardiac arrest, pacemaker. Unclear if he had a stent/CAD. Chest pain has now resolved. No known hyperlipidemia. Non-smoker, nondiabetic. Associated symptoms: Reports chest pain and palpitations; Deny abdominal pain, chest congestion, extremity pain, fever(s), hemoptysis, lightheadedness, nausea, orthopnea, syncope or vomiting Related Data Home Medications ?Medication ?Instructions ?Recorded ?Confirmed amlodipine 10 mg tablet 10 mg PO DAILY 12/28/2012/13 amlodipine 5 mg tablet 5 mg 12/17/22 12/27/23 Previous Rx's ?Medication ?Instructions ?Recorded lidocaine HCl 2 % mucosal solution 1 applic mucous mem brane Q4H PRN 01/05/24 (Lidocaine Viscous) pain #100 mL Allergies Allergy/AdvReac Type Severity Reaction Status Date / Time Penicillins Allergy Unknown Verified 06/27/24 19:56 Review of Systems 2 General: Reports: 10 or more systems reviewed and unremarkable except in HPI and below Const: Denies: fever(s), chills, body aches, fatigue or malaise Eyes: Denies: change in vision, blurry vision, photophobia, floaters or seeing flashes ENMT: Reports: throat pain (Improved from earlier.) and odynophagia (Improved from earlier); Denies: uvular edema, enlarged tonsils, hoarseness, mouth pain, swelling of lips/tongue, oral sores, ear or mastoid pain, nasal discharge, nasal congestion or sinus pain Card: Reports: chest pain and palpitations; Denies: irregular heart rhythm, edema, swelling of feet/ankles, lightheadedness, syncope, pre-syncope, dyspnea on exertion, orthopnea, leg pain with exertion or acrocyanosis Resp: Reports: dyspnea (Improved from earlier.); Denies: productive cough, non-productive cough, wheezing, stridor, pain on inspiration, change in phlegm color, hemoptysis or chest congestion GI: Denies: abdominal pain, nausea, vomiting or diarrhea Musc: Denies: neck pain, back pain, extremity pain, extremity swelling, joint pain or joint swelling Skin/Breast: Denies: rash Neuro: Denies: headache(s), numbness in extremities, weakness in extremities or sensory changes Psych: Denies: anxiety or depression PFSH ED 2 PFSH: Medical History (Updated 01/10/25 @ 00:55 by TIMMY Lee) Psoriasis Family History Mother Heart failure Father AAA (abdominal aortic aneurysm) Grandfather AAA (abdominal aortic aneurysm) Social History Smoking and tobacco/nicotine status: never used tobacco/nicotine Alcohol intake: never Substance/Drug Use: never Physical Exam 2 Const: COMMON NORMALS: no acute distress, average body habitus, patient oriented x3, no limitations, healthy appearing, alert and well nourished HENMT: COMMON NORMALS: normocephalic and atraumatic HEAD & SCALP: n ormocephalic and atraumatic THROAT: no uvular edema Eye: COMMON NORMALS: Equal, round and reactive pupils present, EOMs intact bilaterally, conjunctivae normal and no scleral icterus CONJUNCTIVA: Yes conjunctivae normal PUPIL: Yes Equal, round and reactive pupils present Neck/C-Spine: COMMON NORMALS: full ROM, no lymphadenopathy, supple, no meningeal signs and no JVD Chest: COMMONS NORMALS: normal inspection of the chest, normal palpation of entire chest wall, normal inspection of the breasts and normal palpation of the breasts Breast/axilla inspection: Yes normal inspection of the breasts B REAST/AXILLA PALPATION: Yes normal palpation of the breasts Resp: COMMON NORMALS: normal respiratory effort, No retractions, No use of accessory muscles and clear to auscultation bilaterally AUSCULTATION: clear to auscultation bilaterally Cardio: COMMON NORMALS: no JVD, regular rhythm, S1 normal heart sound present, S2 normal heart sound present, No gallops present (Cardio), No clicks present (Cardio), No murmurs present (Cardio), No rub (Cardio) and Peripheral pulses 2+ throughout RATE: tachycardic RHYTHM: regular rhythm HEART SOUNDS: S1 normal heart sound present and S2 normal heart sound present PERIPHERAL PULSES: Peripheral pulses 2+ throughout GI: COMMON NORMALS: Normal to inspection, nondistended, normoactive bowel sounds present, Soft to palpation, non-tender, No hepatosplenomegaly present, no masses and no bruits PALPATION: Yes Soft to palpation and Yes No hepatosplenomegaly present : COMMON NORMALS: Yes no CVA tenderness BLADDER/KIDNEY EXAM: Yes no CVA tenderness Back/Pelvis: COMMON NORMALS: no CVA tenderness and thoracic and lumbar spine normal to inspection Extremity: COMMON NORMALS: normal to inspection, full ROM and capillary refill normal Neuro: COMMON NORMALS: patient oriented x3, CN's II-XII intact bilaterally and moves all extremities SENSORIUM/ORIENTATION: Yes alert MENINGEAL SIGNS: Y es no meningeal signs Psych: COMMON NORMALS: mental status grossly normal, Normal thought process present, cooperative, normal affect, speech normal and activity/motor behavior normal SPEECH: Yes normal speech THOUGHT PROCESS: Normal thought process present Course 2 Vital Signs: Vital signs: Vital Signs Temperature 98.6 F 01/09/25 23:47 Pulse Rate 108 H 01/10/25 00:36 Respiratory Rate 24 H 01/10/25 00:36 Blood Pressure 166/83 01/10/25 00:36 Pulse Oximetry 94 01/10/25 00:36 Oxygen Delivery Me thod Room Air 01/09/25 23:47 MDM - SOB/Dyspnea Medical Decision Making Patient is a 24-year-old male presents ED with transient left-sided chest pain. Initial EKG findings are without concern with rate of 103, sinus rhythm/tachycardia barely, nonspecific ST segment downsloping T wave in lead III. Plan is to obtain routine cardiac workup. Medical Records I reviewed the patient's medical records. Lab Data I reviewed the patient's lab results. 01/09/25 00:01 01/09/25 00:01 Labs/Radiology: Radiology Impressions Chest X-Ray 01/09/25 23:52 IMPRESSION: No acute findings. Laboratory Results WBC 15.68 10^3/uL (3.29-11.43) H 01/09/25 00:01 RBC 5.25 10^6/uL (3.85-5.65) 01/09/25 00:01 Hgb 15.20 g/dL (11.27-16.99) 01/09/25 00:01 Hct 43.8 % (37-53) 01/09/25 00:01 MCV 83.4 fl (82-101) 01/09/25 00:01 MCH 29.0 pg (27-33) 01/09/25 00:01 MCHC 34.7 g/dL (30-55) 01/09/25 00:01 RDW 12.7 % (12.1-15.1) 01/09/25 00:01 Plt Count 266 10^3/cmm (157-399) 01/09/25 00:01 MPV 11.6 fL (7.4-10.4) H 01/09/25 00:01 Neut % (Auto) 94.2 % 01/09/25 00:01 Lymph % (Auto) 5.2 % 01/09/25 00:01 [place] % (Auto) 0.2 % 01/09/25 00:01 Eos % (Auto) 0.0 % 01/09/25 00:01 Baso % (Auto) 0.1 % 01/09/25 00:01 Neut # (Auto) 14.79 10^3/uL (1.8-7.7) H 01/09/25 00:01 Lymph # (Auto) 0.8 10^3/uL (0.8-4.8) 01/09/25 00:01 [place] # (Auto) 0.0 10^3/uL (0.2-0.9) L 01/09/25 00:01 Eos # (Auto) 0.0 10^3/uL (0.0-0.8) 01/09/25 00:01 Baso # (Auto) 0.0 10^3/uL (0.0-0.1) 01/09/25 00:01 Nucleated RBC % (auto) 0 % 01/09/25 00: Nucleated RBCs # 0.0 /100WBC 01/09/25 00:01 D-Dimer <= 0.27 ug/mLFEU (0-0.59) 01/09/25 00:01 Sodium 137 mmol/L (136-145) 01/09/25 00:01 Potassium 3.7 mmol/L (3.5-5.1) 01/09/25 00:01 Chloride 101 mmol/L (98-107) 01/09/25 00:01 Carbon Dioxide 25 mmol/L (22-29) 01/09/25 00:01 Anion Gap 14.7 (5-19) 01/09/25 00: BUN 12 mg/dL (6-20) 01/09/25 00:01 Creatinine 0.9 mg/dL (0.7-1.2) 01/09/25 00:01 GFR Calculation 104.6 mL/min (90-130) 01/09/25 00: Glucose 186 mg/dL (65-115) H 01/09/25 00:01 Calculated Osmolality 289 mOsm/kg (285-295) 01/09/25 00: Calcium 10.0 mg/dL (8.5-10.5) 01/09/25 00:01 Total Bilirubin 0.3 mg/dL (0.15-1.2) 01/09/25 00:01 AST 16 U/L (0-40) 01/09/25 00:01 ALT 19 U/L (0-41) 01/09/25 00:01 Alkaline Phosphatase 93 U/L (40-130) 01/09/25 00:01 Troponin T Baseline < 6 ng/L (0-15) 01/09/25 00:01 NT-Pro-B Natriuret Pep < 36 pg/mL (0-125) 01/09/25 00:01 Total Protein 7.9 g/dL (6.6-8.7) 01/09/25 00:01 Albumin 4.8 g/dL (3.5-5.2) 01/09/25 00:01 Globulin 3.1 g/dL (1.3-4.6) 01/09/25 00:01 Lipase 26 U/L (13-60) 01/09/25 00:01 XR interpretation done by ED provider, pending radiology final review ED provider radiology interpretation(s): No acute findings EKG Data EKG 1: Interpretation: Normal sinus rhythm, normal axis, inverted T waves and Q waves lead III, QTc 378 Discharge Plan Discharge Patient Disposition: Home Clinical Impression: Non-cardiac chest pain Hypertension Qualifiers: Hypertension type: primary hypertension Qualified Code(s): I10 - Essential (primary) hypertension Condition: Stable Prescriptions: No Action amlodipine 10 mg tablet 10 mg PO DAILY amlodipine 5 mg tablet 5 mg lidocaine HCl [Lidocaine Viscous] 2 % solution 1 applic mucous membrane Q4H PRN (Reason: pain) Qty: 100 0RF Discharge Orders: Discharge ED (Routine); Ordered 01/10/25 Ordered By: Su Whitaker Referrals: Moon Amaral DO [Primary Care Provider, Family Practice] Discharge Diet: Low Salt Discharge Activity: Resume usual activity Patient Instructions: DASH Eating Plan (ED), Patient Portal & Jus Instructions Activity Restrictions/Additional Instructions: - You have been ruled out from an acute cardiac event. This does not rule you out from blockage. Please discuss with your primary care physician if you should go to cardiology for a stress test. -Follow-up with your primary care physician regarding your blood pressure. - I left you information regarding the Dash eating plan that will help you with your sodium intake. I have found this to be very helpful. - Return to ED if this occurs again. As noted, you are not ruled out from blockage standpoint, just acute standpoint. - Consider taking a baby coated aspirin Thank you for choosing [facility] for your healthcare needs today. You have been screened and evaluated and felt safe for discharge. Health conditions do change or evolve sometimes and as such it is important that you follow up with your Primary Doctor to be re checked, 3-5 days is a general good time frame for follow up. You are always welcome to return to the ED for re assessment if your symptoms are worsening or you have new concerns Print Language: Hungarian Coding Level of Care Code ED Research Scholar for Donna Perry
[2025-01-10 00:29] LABS: Troponin(5th) Baseline < 6 ng/L (0-15)
[2025-01-10 00:36] VITALS: BP 166/83; PULSE 108; RESP 24; O2SAT 94
[2025-01-10 00:41] LABS: Alanine Aminotransferase 19 U/L (0-41); Albumin Level 4.8 g/dL (3.5-5.2); Alkaline Phosphatase 93 U/L (40-130); Anion Gap 14.7 (5-19); Aspartate Amino Transferase 16 U/L (0-40); Blood Urea Nitrogen 12 mg/dL (6-20); Calcium 10.0 mg/dL (8.5-10.5); Carbon Dioxide 25 mmol/L (22-29); Chloride 101 mmol/L (98-107); Globulin 3.1 g/dL (1.3-4.6); Glucose 186 mg/dL (65-115); Lipase 26 U/L (13-60); NT Pro B Type Natriuretic Pept < 36 pg/mL (0-125); Osmolality Calculated 289 mOsm/kg (285-295); Potassium 3.7 mmol/L (3.5-5.1); Sodium 137 mmol/L (136-145); Total Protein 7.9 g/dL (6.6-8.7)
[2025-01-10 01:06] VITALS: BP 155/97; PULSE 101; O2SAT 95
[2025-01-10 01:09] VITALS: BP 155/97; PULSE 102; O2SAT 95
--- NOTE | 2025-01-10 08:45 | ECG_ITS ---
[facility]: [facility] Pat Name: Agustin Cedeno Department: Room: Gender: Male Stitchdown Toe Former: : 2000 Requested By: Su Whitaker Order Number: [id number] Mills MD: Sarabjit Hagen M.D. Measurements Intervals [place] Rate: 103 P: 54 WV: 157 QRS: 53 QRSD: 96 T: 7 QT: 318 QTc: 417 Interpretive Statements SINUS TACHYCARDIA POOR R WAVE PROGRESSION ABNORMAL RHYTHM ECG Compared to ECG 08/13/2024 13:00:58 NO SIGNIFICANT CHANGE Electronically Signed On 01-10-2025 17:25:49 ASSOCIATE FINANCIAL PLANNER by Sarabjit Hagen M.D. [id number] [id number]
== END 2025-01-10 01:05 | disposition home or self-care (01) ==
PROVIDERS: Emergency Provider Physician Assistant; PCP Family Medicine
DX: R07.89 Other chest pain (principal); I10 Essential (primary) hypertension
CPT/HCPCS: 36415; 71045; 80053; 83690; 83880; 84484; 85025; 85378; 93005; 99285; J9999

== ENCOUNTER 2025-01-17 20:12 | Emergency (ER) | payer MEDICAID, SELFPAY ==
--- OUTSIDE RECORDS SUMMARY | 2025-01-17 20:20 | XMS_ITS | Clinical Summary ---
Author Organization 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
--- OUTSIDE RECORDS SUMMARY | 2025-01-17 20:20 | XMS_ITS | Patient Health Record ---
Author Organization [facility] Address [address] [place] [address] Care Team Providers Care Wing Coverer Name Role Phone Emil Sam Primary Care [...] Insured Coverage Start Date Coverage End Date [facility] [employer] Plan of [place] [address] [place] [address] [id number] Agustin Cedeno Self - patient is the insured [facility] Community Plan Dental [address] [place] [address] [id number] Wilian Agustin Self - patient is the insured Medical (General) History Medical History History ICD Code ADHD High blood Pressure
--- OUTSIDE RECORDS SUMMARY | 2025-01-17 20:21 | XMS_ITS | Encounter Summary ---
Author Organization [facility] Address [address] [place] [address] Care Team Providers Care Spring Coiler Hand Name Role Phone Moon Amaral DO Primary Care Provider [phone]- [phone] Encounter Details Date Type Department Care Team ([facility] Contact Info) Description 01/12/2025 Orders Only [facility] Health Information Management [place] [address] [place] [address] Provider, Abstract NO ADDRESS ON FILE Social History Tobacco Use Types Packs/Day Years [...] on file Legal Sex Male 8:08 AM PRIVACY OFFICER Gender Identity Not on file Sexual Orientation Not on file documented as of this encounter Plan of Treatment Upcoming Encounters Date Type Department Care Team (Late Contact Info) Description 01/20/2025 4:00 PM PRIVACY OFFICER [facility] Visit [facility] [place] [address] [place] [phone] Layton Rojas, JOHANNA [address] [place] [phone] 04/10/2025 2:00 PM PRIVACY OFFICER Office Visit [facility] [address] [place] [phone] Layton Rojas, JOHANNA [address] [facility] [place] [phone] documented as of this encounter Procedures Procedure Name Priority Date/Time Associated Diagnosis Comments COMPREHENSIVE METABOLIC PANEL Routine 01/09/2025 1:56 PM PRIVACY OFFICER documented in this encounter Results * COMPREHENSIVE METABOLIC PANEL (01/09/2025 1:56 PM PRIVACY OFFICER) Blood us Abstract Provider CHEMISTRY ORDERABLES Final Res ult documented in this encounter Visit Diagnoses Not on filedocumented in this encounter Additional Health Concerns Assessment Noted Time PHQ-9 Depression Total Score: 6 12/02/19 18 8:00 AM CDT documented as of this encounter Care Teams Spring Coiler Hand Relationship Specialty Start Date End Date Moon Amaral DO [address] [place] [phone] PCP - General Family Practice 01/13/10 documented as of this encounter
--- OUTSIDE RECORDS SUMMARY | 2025-01-17 20:21 | XMS_ITS | Encounter Summary ---
Author Organization [facility] Address [address] [place] [address] Care Team Providers Care Sales Representative Publications Name Role Phone Moon Amaral DO Primary Care Provider [phone]- [phone] Encounter Details Date Type Department Care Team (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 Gender Identity Not on file Sexual Orientation Not on file documented as of this encounter Plan of Treatment Not on file documented as of this encounter Visit Diagnoses Diagnosis Essential hypertension, benign- Primary documented in this encounter Additional Health Concerns Infection Onset Date Last Indicated Resolved Time R/O COVID-19 11/12/2019 11/12/2019 11/14/2019 12:1 5 AM CDT documented as of this encounter Care Teams Sales Representative Publications Relationship Specialty Start Date End Date Moon Amaral DO [address] [place] [address] PCP - General Family Practice 01/13/10 documented as of this encounter
--- OUTSIDE RECORDS SUMMARY | 2025-01-17 20:21 | XMS_ITS | Clinical Summary ---
Author Organization [facility] Address [address] [place] [address] Care Team Providers Care Tack Welder Name Role Phone Moon Amaral DO Primary Care Provider Allergies Active Allergy Reactions Criticality Noted Date Comments Alpha-Gal (Glphchpti-Ilgvl-6,3-Ga lactose) Abdominal Pain High 08/11/2024 Aspirin Unknown [...] (Abilify) 5 mg tabletIndications :Bipolar 1 disorder (CMS/HCC),Retail Account Manager y hallucinations Take 1 Tablet (5 mg) [...] Encounters Date Type Department Care Team Description 01/12/2025 Orders Only [facility] Health Information Management [place] [address] [place] [address] Provider, Abstract 01/07/2025 12:20 PM WIRE DRAWING MACHINE TENDER Office Visit [facility] [address] [place] [address] Layton Rojas, JOHANNA Morbid obesity with body mass index (BMI) of 40.0 or higher (CMS/HCC) (Primary Dx); Benign hypertension; Bipolar 1 disorder 01/02/2025 3:20 PM WIRE DRAWING MACHINE TENDER Office Visit [facility] [address] [place] [address] Aparicio, May, BOAT AND PLANT UTILITY SUPERVISOR Palpitations (Primary Dx) 12/31/2024 Telephone [facility] [address] [place] [address] Moon Amaral, DO Patient Communication 12/23/2024 External Device Data STL ABSTRACTION Provider, Abstract 12/23/2024 External Device Data [place] ABSTRACTION Provider, Abstract 12/23/2024 External Device Data [place] ABSTRACTION Provider, Abstract 11/25/2024 2:20 PM CDT Office Visit [facility] [address] [place] [address] Layton Rojas, JOHANNA Morbid obesity with body mass index (BMI) of 40.0 or higher (CMS/HCC) (Primary Dx); Bipolar 1 disorder; Auditory hallucinations 11/04/2024 External Device Data ST[place] ABSTRACTION Provider, Abstract 11/04/2024 External Device Data STL ABSTRACTION Provider, Abstract 11/04/2024 External Device Data STL ABSTRACTION Provider, Abstract 10/28/2024 External Device Data STL ABSTRACTION Provider, Abstract 10/24/2024 1:40 PM CDT Office Visit [facility] [place] [address] [place] [address] Layton Rojas FNP Morbid obesity with body mass index (BMI) of 40.0 or higher (CMS/HCC) (Primary Dx); Benign hypertension; Bipolar 1 disorder; Attention deficit hyperactivity disorder (ADHD), combined type; At risk for sleep apnea 10/21/2024 Telephone [facility] [address] [place] [address] Erin Moon MD mailed watchPAT from Last 3 Months Immunizations Immunization Administration [...] PERTUSSIS, HEPATITIS B, AND INACTIVATED POLIOVIRUS VACCINE ([id number]), 0.5ML, IM 09/15/2003 (RECOMBIVAX HB/ENGERIX-B)(0- 19 YRS) [...] on file Legal Sex Male 8:08 AM WIRE DRAWING MACHINE TENDER Gender Identity Not on file Sexual Orientation Not on file Last Filed Vital Signs Vital Sign Reading Time Taken Comments Blood Pressure 110/60 01/07/2025 12:11 PM WIRE DRAWING MACHINE TENDER Pulse 91 01/07/2025 12:11 PM WIRE DRAWING MACHINE TENDER Temperature 37 C (98.6 F) 01/07/2025 12:11 PM WIRE DRAWING MACHINE TENDER Respiratory Rate 18 01/07/2025 12:1 1 PM WIRE DRAWING MACHINE TENDER Oxygen Saturation 98% 01/07/2025 12: 11 PM WIRE DRAWING MACHINE TENDER Inhaled Oxygen Concentration - - Weight 129.2 kg (284 lb 12.8 oz) 2024 12:11 PM WIRE DRAWING MACHINE TENDER Height 172.7 cm (5' 8 ) 01/07/2025 12:1 1 PM WIRE DRAWING MACHINE TENDER Body Mass Index 43.3 01/07/2025 12:11 PM WIRE DRAWING MACHINE TENDER Plan of Treatment Upcoming Encounters Date Type Department Care Team (Late st Contact Info) Description 01/20/2025 4:00 PM WIRE DRAWING MACHINE TENDER Office Visit [facility] [address] [place] [address] Layton Rojas, [facility] [address] [place] [address] 04/10/2025 2:00 PM WIRE DRAWING MACHINE TENDER Office Visit [facility] [address] [place] [facility] [address] Layton Rojas, [facility] [address] [place] [facility] [place] [address] Health Maintenance Due Date Last Done Comments Preventative Visit-Managed Medicaid 07/16/2022 07/15/2021, 08/20/2015, 09/22/2011 INFLUENZA VACCINE (#1) 2024 2, 03/31/2021, 10/19/2017, Additional history exists DTAP/TDAP/TD VACCINES (7 - T d or Tdap) 09/14/2025 09/15/2015, 09/15/2015, 09/26/2007, Additional history exists HEPATITIS B VACCINES Completed 09/15/2003, 01/06/2002, 2001 HPV VACCINES Completed 09/22/2016, 04/2015, 09/15/2015, Additional history exists Abdominal Aortic Aneurysm (A AA) Screening Completed 08/07/2017 Procedures Procedure Name Priority Date/Time Associated Diagnosis Comments COMPREHENSIVE METABOLIC PANEL Routine 01/09/2025 1:56 PM WIRE DRAWING MACHINE TENDER US ABDOMEN COMPLETE Routine 08/07/2017 1 0:35 AM CDT Abdominal pain, acute, right upper quadrant from Last 3 Months or Most Recently Relevant to Health Maintenance Results * COMPREHENSIVE METABOLIC PANEL (01/09/2025 1:56 PM WIRE DRAWING MACHINE TENDER) Blood us Abstract Provider CHEMISTRY ORDERABLES Final Res ult * US ABDOMEN COMPLETE (08/07/2017 10:35 AM [...] evidence of acute cholecystitis or biliary obstruction. [id number] Narrative Procedure Note Otto Sanchez MD - [...] evidence of acute cholecystitis or biliary obstruction. [id number] us Moon Amaral DO US ORDERABLES Final Resul t from Last 3 Months or Most Recently Relevant to Health Maintenance Insurance [address] [place] [address] [facility] [place] [id number] Care Teams Tack Welder Relationship Specialty Start Date End Date Moon Amaral DO [address] [place] [address] PCP - General Family Practice 01/13/10
--- OUTSIDE RECORDS SUMMARY | 2025-01-17 20:21 | XMS_ITS | Data Portability ---
Author Organization [facility] Address [address] [address] Assessment No assessment recorded. Plan of Treatment [...] Name and Address Organization Details Recorded Time 75912 Product containin g penicilli n (product) medicatio n Not available Not available Not available 09/09/2022 82245 8001 SNOMED Comme nt: Recor ded 01/29 5:47P M by Rachelle Juarez LPN, Offic e Visit ; Promo khalida; Marcelino valenzuela ce: *; ; Not Available [facility] 3 02:25:16 03636 aspirin medicatio n Not available Not available Not available 09/09/2022 1191 RxNorm Comme nt: Recor ded 01/29 5:47P M by Rachelle Juarez LPN, Offic e Visit ; Promo khalida; Marcelino valenzuela ce: *; ; Not Available [facility] 3 02:25:16 Medications Name Sig Start Date [...] Address Organization Details Last Updated DateTime 4 051469. 63 g 47.1 kg/m2 172.72 cm 19 /min 91 /min 97 % FELICITA [facility], [facility] 4 14:06:09 Social History None recorded. Functional Status None recorded. Mental Status None recorded. Family History Nothing Reported Notes:MVP, cancer; cervical, breast, anxiety, hypertension Medical History No medical history recorded. Past Encounters Encounter ID Performer Location Encounter Start Date Encounter Closed Date Diagnosis/Indication Diagnosis SNOMED-CT Code Diagnosis ICD10 Code Diagnosis IMO Codes Diagnosis Note [id number] JOHANNA PEREA [facility] ([facility] [address] [place] [phone] 09/15/2023 13:52:30 09/15/2023 15:10:19 Pain due to dental trauma 8152517904 R52 Continue tramadol. Add IBU as needed [...] Burgos Member ID Guarantor Name 09/15/2023 1 [facility] (MEDICAID REPLACEMENT - HMO) ANASTASIIA Cedeno [id number] Agustin Cedeno Notes Date Note Type Note [...] He's taken Tylenol as well. JOHANNA PEREA [address] [place] [address], [phone], [facility] 09/15/2023 14:42:53
[2025-01-17 20:22] VITALS: BP 127/78; PULSE 89; RESP 20; TEMP 36.8; O2SAT 99; BMI 41.0
[2025-01-17] MEDS: diphenhydrAMINE 12.5 mg/5 mL UDC 10 mL 25 MG PO (22:01)
[2025-01-17 22:04] VITALS: BP 159/98; PULSE 93; O2SAT 93
--- NOTE | 2025-01-17 22:15 | ED_ITS ---
HPI - General Adult General: Chief complaint: Airway/Esophagus Foreign Body Stated complaint: SOB Numbe Throat\Sinuses Time Seen by Provider: 01/17/25 21:06 History of Present Illness: Patient is a 24-year-old male presenting with complaints of difficulty breathing and sensation of throat swelling for approximately 4 hours prior to arrival. He describes feeling as if he is suffocating and notes significant throat tightness and swelling sensation extending to his sinuses. Patient reports this is the third similar episode he has experienced. He took Benadryl at home with significant improvement in symptoms. He denies throat itching but reports gagging frequently during episodes. Patient denies fever or significant congestion, though mentions a bit of stuff in my lungs. Of note, the first episode occurred while smoking marijuana, but the second and third episodes had no clear trigger. Patient recently started Zepbound (tirzepatide) and received his most recent dose two days ago on Sunday (01/15/2025). He reports receiving steroids during previous episodes with dramatic improvement in symptoms. Previous episodes were evaluated with multiple chest x-rays. Related Data Home Medications ?Medication ?Instructions ?Recorded ?Confirmed amlodipine 10 mg tablet 10 mg PO DAILY 12/28/2012/13 amlodipine 5 mg tablet 5 mg 12/17/22 12/27/23 Previous Rx's ?Medication ?Instructions ?Recorded lidocaine HCl 2 % mucosal solution 1 applic mucous mem brane Q4H PRN 01/05/24 (Lidocaine Viscous) pain #100 mL methylprednisolone 4 mg tablets in See Rx Instructions PO .COMPLEX 01/17/25 a dose pack (Medrol (Hayder)) #21 ea Allergies Allergy/AdvReac Type Severity Reaction Status Date / Time Penicillins Allergy Unknown Verified 01/17/25 20:26 [facility] ED PFS: Medical History Psoriasis Family History Mother Heart failure Father AAA (abdominal aortic aneurysm) Grandfather AAA (abdominal aortic aneurysm) Social History Smoking and tobacco/nicotine status: never used tobacco/nicotine Alcohol intake: never Substance/Drug Use: never Physical Exam Const: COMMON NORMALS: no acute distress GENERAL APPEARANCE: cooperative; not ill appearing and not frail appearing HENMT: COMMON NORMALS: normocephalic, atraumatic and Normal external nose present HEAD & SCALP: normocephalic and atraumatic FACE & SINUS: normal facial exam and face symmetric NOSE: Normal external nose present Eye: COMMON NORMALS: Equal, round and reactive pupils present and EOMs intact bilaterally PUPIL: Yes Equal, round and reactive pupils present Neck/C-Spine: GENERAL: Yes trachea midline Chest: CHEST: Yes Symmetrical chest wall rise Resp: COMMON NORMALS: normal respiratory effort, No retractions, No use of accessory muscles and clear to auscultation bilaterally AUSCULTATION: clear to auscultation bilaterally Cardio: COMMON NORMALS: regular rate and regular rhythm RATE: regular rate RHYTHM: regular rhythm GI: COMMON NORMALS: Normal to inspection, nondistended, normoactive bowel sounds present Extremity: COMMON NORMALS: no pedal edema Neuro: VERONICA COMA SCALE: document GCS findings Veronica coma scale eye opening: Spontaneous Veronica coma scale verbal response: Orientated Veronica coma scale motor response: Obey commands Veronica coma scale total score: 15 SENSORY EXAM: Yes extremities (intact) Psych: COMMON NORMALS: speech normal SPEECH: Yes normal speech Skin: NARRATIVE SKIN EXAM: Scattered psoriasis lesions Course Vital Signs: Vital signs: Vital Signs Temperature 98.3 F 01/17/25 20:22 Pulse Rate 89 01/17/25 22:37 Respiratory Rate 20 H 01/17/25 20:22 Blood Pressure 136/105 01/17/25 22:37 Pulse Oximetry 95 01/17/25 22:37 Oxygen Delivery Me thod Room Air 01/17/25 20:22 MDM - General Adult Medical Decision Making Patient is improved even prior to exam. He is more improved after dexamethasone, Benadryl, Pepcid here. Zepbound evidently can cause angioedema. We will put him on a tapering dose of steroid for the next few days. No other causes identified. No radiology studies performed this visit Discharge Plan Discharge Patient Disposition: Home Clinical Impression: Laryngeal edema Condition: Stable Prescriptions: New methylprednisolone [Medrol (Hayder)] 4 mg tablets,dose pack See Rx Instructions .ROUTE .COMPLEX Qty: 21 0RF Rx Instructions: orally per package directions No Action amlodipine 10 mg tablet 10 mg PO DAILY amlodipine 5 mg tablet 5 mg lidocaine HCl [Lidocaine Viscous] 2 % solution 1 applic mucous membrane Q4H PRN (Reason: pain) Qty: 100 0RF Discharge Orders: Discharge ED (Routine); Ordered 01/17/25 Ordered By: Chepe Mejia Referrals: Moon Amaral DO [Primary Care Provider, [facility]] Patient Instructions: Angioedema (ED), Opioid Safety, Pain Management, Patient Portal & Jus Instructions Activity Restrictions/Additional Instructions: Consider taking cetirizine or Zyrtec daily as a continued medication. Medication you were prescribed tonight as directed in addition to this. Zepbound has been shown to cause swelling of the face or throat. You might discuss this with your doctor. It is not likely a cause, but is possible. Call Sunday for an appointment. Return for problems. Print Language: Cape Verdean Coding Level of Care Code ED Traffic Signal Technician for Donna Perry
[2025-01-17 22:37] VITALS: BP 136/105; PULSE 89; O2SAT 95
== END 2025-01-17 22:38 | disposition home or self-care (01) ==
PROVIDERS: Emergency Provider Emergency Medicine; PCP Family Medicine
DX: J38.4 Edema of larynx (principal)
CPT/HCPCS: 96372; 99284; J1100; J1200; J9999

== ENCOUNTER 2025-01-18 13:48 | Emergency (ER) | payer MEDICAID, SELFPAY ==
--- OUTSIDE RECORDS SUMMARY | 2025-01-18 13:53 | XMS_ITS | Clinical Summary ---
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
--- OUTSIDE RECORDS SUMMARY | 2025-01-18 13:53 | XMS_ITS | Patient Health Record ---
Author Organization [facility] Address [address] [place] [address] Care Team Providers Care Revenue Inspector Name Role Phone Emil Sam Primary Care [...] Insured Coverage Start Date Coverage End Date [facility] Community Plan of [place] [address] [place] [address] [id number] Agustin Cedeno Self - patient is the insured [facility] Community Plan Dental [address] [place] [address] [id number] Wilian Agustin Self - patient is the insured Medical (General) History Medical History History ICD Code ADHD High blood Pressure
--- OUTSIDE RECORDS SUMMARY | 2025-01-18 13:53 | XMS_ITS | Encounter Summary ---
Author Organization [facility] Address [address] [place] [address] Care Team Providers Care Profile Stitching Machine Operator Name Role Phone Moon Amaral DO Primary Care Provider [phone] Reason for Visit * Reason Onset Date Comments Medication Refill 01/18/2025 Encounter Details Date Type Department Care Team ([facility] Contact Info) Description 01/18/[address] 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 [address] [place] [address] Sara Rojasradhames Branch, [facility] [address] [place] [address] 04/10/2025 2:00 PM AUTOS DISASSEMBLER Office Visit [facility] [address] [place] [address] Layton Rojas, [facility] [address] [place] [address] documented as of this encounter Visit Diagnoses Diagnosis Allergic reaction to alpha-gal documented in this encounter Additional Health Concerns Assessment Noted Time PHQ-9 Depression Total Score: 6 12/02/19 18 8:00 AM CDT documented as of this encounter Care Teams Profile Stitching Machine Operator Relationship Specialty Start Date End Date Moon Amaral DO [address] [place] [address] PCP - General Family Practice 01/13/10 documented as of this encounter
--- OUTSIDE RECORDS SUMMARY | 2025-01-18 13:54 | XMS_ITS | Clinical Summary ---
Author Organization [facility] Address [address] [place] [address] Care Team Providers Care Motor Builder Assembler Name Role Phone Moon Amaral DO Primary Care Provider Allergies Active Allergy Reactions Criticality Noted Date Comments Alpha-Gal (Fkrcpubct-Bndrm-8,3-Ga lactose) Abdominal Pain High 08/11/2024 Aspirin Unknown [...] (Abilify) 5 mg tabletIndications :Bipolar 1 disorder (CMS/HCC),Steward Dishwasher y hallucinations Take 1 Tablet (5 mg) [...] Encounters Date Type Department Care Team Description 01/18/2025 Refill [facility] [address] [place] [address] Layton Rojas, DIRECTOR RECORDS MANAGEMENT Allergic reaction to alpha-gal 01/12/2025 Orders Only [facility] Health Information Management [place] [address] [place] [address] Provider, Abstract 01/07/2025 12:20 PM AGENTS' RECORDS CLERK Office Visit [facility] [address] [place] [address] Layton Rojas, JOHANNA Morbid obesity with body mass index (BMI) of 40.0 or higher ([facility]) (Primary Dx); Benign hypertension; Bipolar 1 disorder 01/02/2025 3:20 PM AGENTS' RECORDS CLERK Office Visit [facility] [address] [place] [address] AparicioMay, DIRECTOR RECORDS MANAGEMENT Palpitations (Primary Dx) 12/31/2024 Telephone [facility] [address] [place] [address] Moon Amaral, DO Patient Communication 12/23/2024 External Device Data STL ABSTRACTION Provider, Abstract 12/23/2024 External Device Data STL ABSTRACTION Provider, Abstract 12/23/2024 External Device Data STL ABSTRACTION Provider, Abstract 11/25/2024 2:20 PM CDT Office Visit [facility] [address] [place] [address] Layton Rojas FNP Morbid obesity with body mass index (BMI) of 40.0 or higher (CMS/HCC) (Primary Dx); Bipolar 1 disorder; Auditory hallucinations 11/04/2024 External Device Data STL ABSTRACTION Provider, Abstract 11/04/2024 External Device Data STL ABSTRACTION Provider, Abstract 11/04/2024 External Device Data STL ABSTRACTION Provider, Abstract 10/28/2024 External Device Data STL ABSTRACTION Provider, Abstract 10/24/2024 1:40 PM CDT Office Visit [facility] [place] [address] [place] [address] Layton Rojas, JOHANNA Morbid obesity with body mass index (BMI) of 40.0 or higher (CMS/HCC) (Primary Dx); Benign hypertension; Bipolar 1 disorder; Attention deficit hyperactivity disorder (ADHD), combined type; At risk for sleep apnea 10/21/2024 Telephone [place] [phone] [place] [address] Erin Moon MD mailed watchPAT [...] PERTUSSIS, HEPATITIS B, AND INACTIVATED POLIOVIRUS VACCINE (ZHRC-BSOX-REE), 0.5ML, IM 09/15/2003 (RECOMBIVAX HB/ENGERIX-B)(0- 19 YRS) [...] on file Legal Sex Male 8:08 AM AGENTS' RECORDS CLERK Gender Identity Not on file Sexual Orientation Not on file Last Filed Vital Signs Vital Sign Reading Time Taken Comments Blood Pressure 110/60 01/07/2025 12:11 PM AGENTS' RECORDS CLERK Pulse 91 01/07/2025 12:11 PM AGENTS' RECORDS CLERK Temperature 37 C (98.6 F) 01/07/2025 12:11 PM AGENTS' RECORDS CLERK Respiratory Rate 18 01/07/2025 12:1 1 PM AGENTS' RECORDS CLERK Oxygen Saturation 98% 01/07/2025 12: 11 PM AGENTS' RECORDS CLERK Inhaled Oxygen Concentration - - Weight 129.2 kg (284 lb 12.8 oz) 2024 12:11 PM AGENTS' RECORDS CLERK Height 172.7 cm (5' 8 ) 01/07/2025 12:1 1 PM AGENTS' RECORDS CLERK Body Mass Index 43.3 01/07/2025 12:11 PM AGENTS' RECORDS CLERK Plan of Treatment Upcoming Encounters Date Type Department Care Team (Late st Contact Info) Description 01/20/2025 4:00 PM AGENTS' RECORDS CLERK Office Visit [facility] [address] [place] [address] Layton Rojas, [facility] [address] [place] [address] 04/10/2025 2:00 PM AGENTS' RECORDS CLERK Office Visit [facility] [address] [place] [address] Layton Rojas, [facility] [address] [place] [address] Health Maintenance Due Date Last Done Comments Preventative Visit-Managed Medicaid 07/16/2022 07/15/2021, 08/20/2015, 09/22/2011 INFLUENZA VACCINE (#1) 2024 2, 03/31/2021, 10/19/2017, Additional history exists DTAP/TDAP/TD VACCINES (7 - T d or Tdap) 09/14/2025 09/15/2015, 09/15/2015, 09/26/2007, Additional history exists HEPATITIS B VACCINES Completed 09/15/2003, 01/06/2002, 2001 HPV VACCINES Completed 09/22/2016, 08/0 04/2015, 09/15/2015, Additional history exists Abdominal Aortic Aneurysm (A AA) Screening Completed 08/07/2017 Procedures Procedure Name Priority Date/Time Associated Diagnosis Comments COMPREHENSIVE METABOLIC PANEL Routine 01/09/2025 1:56 PM AGENTS' RECORDS CLERK US ABDOMEN COMPLETE Routine 08/07/2017 1 0:35 AM CDT Abdominal pain, acute, right upper quadrant from Last 3 Months or Most Recently Relevant to Health Maintenance Results * COMPREHENSIVE METABOLIC PANEL (01/09/2025 1:56 PM AGENTS' RECORDS CLERK) Blood us Abstract Provider CHEMISTRY ORDERABLES Final [...] evidence of acute cholecystitis or biliary obstruction. [id number] Narrative Procedure Note Otto Sanchez MD - [...] evidence of acute cholecystitis or biliary obstruction. [id number] Moon Amaral DO ORDERABLES Final Resul t from Last 3 Months or Most Recently Relevant to Health Maintenance Insurance [facility] [id number] Care Teams Motor Builder Assembler Relationship Specialty Start Date End Date Moon Amaral DO [address] [place] [phone] PCP - General Family Practice 01/13/10
--- OUTSIDE RECORDS SUMMARY | 2025-01-18 13:54 | XMS_ITS | Encounter Summary ---
Author Organization [facility] Address 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 SPANISHER Gender Identity Not on file Sexual Orientation Not on file documented as of this encounter Plan of Treatment Upcoming Encounters Date Type Department Care Team (Late Contact Info) Description 01/20/2025 4:00 PM SPANISHER Office Visit [facility] Family Medicine [place] [address] [place] [phone] Layton Rojas, JOHANNA [address] [place] [address] 04/10/2025 2:00 PM SPANISHER Office Visit [facility] [address] [place] [phone] Layton Rojas, JOHANNA [address] [facility] [place] [phone] documented as of this encounter Procedures Procedure Name Priority Date/Time Associated Diagnosis Comments COMPREHENSIVE METABOLIC PANEL Routine 01/09/2025 1:56 PM SPANISHER documented in this encounter Results * COMPREHENSIVE METABOLIC PANEL (01/09/2025 1:56 PM SPANISHER) Blood us Abstract Provider CHEMISTRY ORDERABLES Final Res ult documented in this encounter Visit Diagnoses Not on filedocumented in this encounter Additional Health Concerns Assessment Noted Time PHQ-9 Depression Total Score: 6 12/02/19 18 8:00 AM CDT documented as of this encounter Care Teams Senior Systems Administrator Relationship Specialty Start Date End Date Moon Amaral DO [address] [place] [phone] PCP - General Family Practice 01/13/10 documented as of this encounter
--- OUTSIDE RECORDS SUMMARY | 2025-01-18 13:54 | XMS_ITS | Encounter Summary ---
Author Organization [facility] Address [address] [place] [address] Care Team Providers Care Accounting Advisory Services Manager Name Role Phone Moon Amaral DO Primary Care Provider [phone]- [phone] Encounter Details Date Type Department Care Team ([facility] Contact Info) Description 12/14/2014 Ancillary Orders [facility] Pre-Registration [place] CALL TO MAKE APPOINTMENT ONLY [address] [place] [address] Malik Brian Jr., MD [address] [address] Essential hypertension, benign (Primary Dx) Social History Tobacco Use Types Packs/Day Years Used Date Smoking Tobacco: Never Alcohol Use Standard Drinks/Week Comments Not Asked 0 (1 standard drink = 0.6 oz pur e alcohol) Sex and Gender Information Value Date Recorded Sex Assigned at Not on file Legal 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
[2025-01-18 13:56] VITALS: BP 163/84; PULSE 110; RESP 16; TEMP 36.8; O2SAT 95; BMI 43.3
--- NOTE | 2025-01-18 13:58 | ED_ITS ---
HPI - URI/Sore Throat General: Chief Complaint: Upper Respiratory Infection Stated Complaint: trouble breathing Time Seen by Provider: 01/18/25 13:56 History of Present Illness: 24-year-old male with a history of asthm a and psoriasis who presents the emergency room with continued difficulty breathing. This been going on for couple of weeks. He is continue to smoke. He was seen in the emergency room yesterday and sent steroids but he had not picked them up yet. He said he was on his way to get them and symptoms became worse so he came to the emergency room. No chest pain. No fever. He has had some cough but mainly shortness of breath and wheeze. Related Data Home Medications ?Medication ?Instructions ?Recorded ?Confirmed amlodipine 10 mg tablet 10 mg PO DAILY 12/28/2012/13 amlodipine 5 mg tablet 5 mg 12/17/22 12/27/23 Previous Rx's ?Medication ?Instructions ?Recorded lidocaine HCl 2 % mucosal solution 1 applic mucous mem brane Q4H PRN 01/05/24 (Lidocaine Viscous) pain #100 mL albuterol sulfate 90 mcg/actuation 2 inh inhalation Q4 H #6.7 grams 01/18/25 aerosol inhaler (Ventolin HFA) doxycycline hyclate 100 mg capsule 100 mg PO BID 7 day s #14 caps 01/18/25 prednisone 20 mg tablet 60 mg (3 x 20 mg) PO DAILY # 20 tabs 01/18/25 Allergies Allergy/AdvReac Type Severity Reaction Status Date / Time Penicillins Allergy Unknown Verified 01/17/25 20:26 Review of Systems Narrative: Constitutional symptoms: Negative except as documented in HPI. Skin symptoms: Negative except as documented in HPI. Eye symptoms: Negative except as documented in HPI. ENMT symptoms: Negative except as documented in HPI. Respiratory symptoms: Negative except as documented in HPI. Cardiovascular symptoms: Negative except as documented in HPI. Gastrointestinal symptoms: Negative except as documented in HPI. Genitourinary symptoms: Negative except as documented in HPI. Musculoskeletal symptoms: Negative except as documented in HPI. Neurologic symptoms: Negative except as documented in HPI. Psychiatric symptoms: Negative except as documented in HPI. Endocrine symptoms: Negative except as documented in HPI. [facility] ED PFS: Medical History (Updated 01/18/25 @ 14:01 by Loren Blair MD) Psoriasis Family History Mother Heart failure Father AAA (abdominal aortic aneurysm) Grandfather AAA (abdominal aortic aneurysm) Social History Smoking and tobacco/nicotine status: never used tobacco/nicotine Alcohol intake: never Substance/Drug Use: never Physical Exam Narrative: EXAM NARRATIVE: General: Alert, no acute distress. Skin: Warm, dry. Head: Normocephalic, atraumatic. Neck: Supple, trachea midline. Eye: Extraocular movements are intact. Ears, nose, mouth and throat: Oral mucosa moist. Cardiovascular: Regular rate and rhythm, Normal peripheral perfusion. Respiratory: coarse, scattered wheeze, mild increased wob. tachypnea, breath sounds are equal, Symmetrical chest wall expansion. Gastrointestinal: Soft, Nontender, Non distended Musculoskeletal: Normal ROM, no deformity. Neurological: Alert and oriented, No focal neurological deficit observed. Psychiatric: Cooperative, appropriate mood & affect. Course Vital Signs: Vital signs: Vital Signs Temperature 98.3 F 01/18/25 13:56 Pulse Rate 108 H 01/18/25 14:21 Respiratory Rate 18 01/18/25 14:21 Blood Pressure 163/84 01/18/25 13:56 Pulse Oximetry 97 01/18/25 14:21 Oxygen Delivery Me thod Room Air 01/18/25 14:21 MDM - URI/Sore Throat Medical Decision Making Medical decision making Patient's reason for coming to the emergency room: Shortness of breath Social determinants: I reviewed the patient's medical record. Reviewed record from visit to the emergency room yesterday. I reviewed the patient's current home meds Concern for medication reaction to Zepbound yesterday. Today is more of a wheezing picture than a throat swelling type presentation. Alternate historians: None Differential diagnosis: including but not limited to and based on the above HPI, review of systems and physical exam: Patient appears to be having an exacerbation of asthma. With the severity of symptoms [place] put him on a bigger steroid taper, and prescribe an inhaler. Also will place him on some antibiotics. Lab Review: Laboratory results were reviewed and interpreted by myself the emergency room physician. No lab work indicated today Reexamination: Patient improved somewhat. No longer with any increased work of breathing. Still little tachycardic. Assessment and plan: Asthma exacerbation ?IV Solu-Medrol. Updrafts. - Discharged home - Discussed plan with patient. Answered any questions. - Evaluation and treatment of this problem were appropriate in the emergency setting. No radiology studies performed this visit Discharge Plan Discharge Patient Disposition: Home Clinical Impression: Asthma exacerbation, Tobacco dependence Condition: Stable Prescriptions: New doxycycline hyclate 100 mg capsule 100 mg PO BID 7 Days Qty: 14 0RF prednisone 20 mg tablet 60 mg PO DAILY Qty: 20 0RF Rx Instructions: 3 tabs (60 mg) x 3 days. 2 tabs (40 mg) x 3 days. 1 tab (20 mg) x 3 days. 1/2 tab (10 mg) x 4 days albuterol sulfate [Ventolin HFA] 90 mcg/actuation HFA aerosol inhaler 2 inh inhalation Q4H Qty: 6.7 0RF Rx Instructions: Please schedule every 4 hours for the next 3 days with up to every every 2 as needed. Please provide patient with a spacer/AeroChamber Discontinued methylprednisolone [Medrol ([place])] 4 mg tablets,dose pack See Rx Instructions .ROUTE .COMPLEX Qty: 21 0RF Rx Instructions: orally per package directions No Action amlodipine 10 mg tablet 10 mg PO DAILY amlodipine 5 mg tablet 5 mg lidocaine HCl [Lidocaine Viscous] 2 % solution 1 applic mucous membrane Q4H PRN (Reason: pain) Qty: 100 0RF Discharge Orders: Discharge ED (Routine); Ordered 01/18/25 Ordered By: Loren Blair Referrals: Moon Amaral DO [Primary Care Provider, Family Practice] Patient Instructions: How to Use a Metered-Dose Inhaler and a Spacer (ED), Opioid Safety, Pain Management, Patient Portal & Jus Instructions Activity Restrictions/Additional Instructions: Thank you for choosing [facility] for your healthcare needs today. You have been screened and evaluated and felt safe for discharge. Health conditions do change or evolve sometimes and as such it is important that you follow up with your Primary Doctor to be re checked, 3-5 days is a general good time frame for follow up. You are always welcome to return to the ED for re assessment if your symptoms are worsening or you have new concerns Print Language: Hungarian Coding Level of Care Code ED Typewriter Ribbon Winder for Donna Perry
[2025-01-18 14:14] VITALS: PULSE 109; RESP 18; O2SAT 98
[2025-01-18] MEDS: methylPREDNISolone sod succ 125 mg/2 mL INJ IVP (14:14)
[2025-01-18 14:21] VITALS: PULSE 108; RESP 18; O2SAT 97
[2025-01-18 14:42] VITALS: BP 163/84; PULSE 115; RESP 16; TEMP 36.6; O2SAT 96
== END 2025-01-18 14:44 | disposition home or self-care (01) ==
PROVIDERS: Emergency Provider Emergency Medicine; PCP Family Medicine
DX: J45.901 Unspecified asthma with (acute) exacerbation (principal); F17.210 Nicotine dependence, cigarettes, uncomplicated
CPT/HCPCS: 94640; 96374; 99284; J2919; J7613; J9999

== ENCOUNTER 2025-01-23 18:10 | Emergency (ER) | payer MEDICAID, SELFPAY ==
--- OUTSIDE RECORDS SUMMARY | 2025-01-20 16:00 | XMS_ITS | Encounter Summary ---
Author Organization [facility] Address [address] [place] [address] Care Team Providers Care Truck Greaser Name Role Phone Moon Amaral DO Primary Care Provider +1- [phone] Reason for Visit * Reason Comments ER Follow Up [facility] ED F/U Encounter Details Date Type Department Care Team ([facility] st Contact Info) Description 01/20/2025 4:00 PM ADVERTISEMENT COMPOSITOR Office Visit [facility] [address] [place] [address] [facility] [address] [place] [address] Allergic reaction to alpha-gal (Primary Dx); Sensation of swollen throat; Morbid obesity with body mass index (BMI) of 40.0 or higher (CMS/HCC); Benign hypertension Social History Tobacco Use Types Packs/Day Years [...] on file Legal Sex Male 8:08 AM ADVERTISEMENT COMPOSITOR Gender Identity Not on file Sexual Orientation Not on file documented as of this encounter Last Filed Vital Signs Vital Sign Reading Time Taken Comments Blood Pressure 128/70 01/20/2025 3:52 PM ADVERTISEMENT COMPOSITOR Pulse 100 01/20/2025 3:52 PM ADVERTISEMENT COMPOSITOR Temperature 36.6 C (97.9 F) 01/20/2025 3:52 PM ADVERTISEMENT COMPOSITOR Respiratory Rate 18 01/20/2025 3:52 PM ADVERTISEMENT COMPOSITOR Oxygen Saturation 99% 01/20/2025 3:52 PM ADVERTISEMENT COMPOSITOR Inhaled Oxygen Concentration - - Weight 131.2 kg (289 lb 3.2 oz) 01/20/2025 3:52 PM ADVERTISEMENT COMPOSITOR Height 172.7 cm (5' 8 ) 01/20/2025 3:52 PM ADVERTISEMENT COMPOSITOR Body Mass Index 43.97 01/20/2025 3:52 PM ADVERTISEMENT COMPOSITOR documented in this encounter Progress Notes * Layton Rojas, JOHANNA - 01/20/2025 4:00 PM CST Chief Complaint Patient presents with ER Follow Up [facility] ED F/U Patient Active Problem List Diagnosis Code ADHD (attention deficit hyperactivity disorder) F90.9 Psoriasis L40.9 Environmental allergies Z91.09 Bipolar 1 disorder F31.9 Anxiety F41.9 Primary insomnia F51.01 Declined influenza vaccine Z28.21 Benign hypertension I10 Morbid obesity with body mass index (BMI) of 40.0 or higher ([facility]) E66.01 Acne vulgaris L70.0 Snores R06.83 Allergic reaction to alpha-gal T78.19XA Auditory hallucinations R44.0 Sensation of swollen throat R68.89 History of Present Illness The patient presents for a follow-up from a recent ER evaluation at [facility]. He has visited the ER multiple times over the past few weeks. He reports chest pain, shortness of breath, throat sensation, and swelling, which began two weeks ago after an increased dosage of Zepbound. He mentions exposure to cats without previous allergic reactions and recalls smoking a joint around the onset of symptoms but has abstained since. Symptoms have improved significantly today, likely due to ER-prescribed medication. He is on the final 2 to 3 days of a steroid pack. The patient has alpha-gal syndrome and suspects recent dietary choices contributed to his symptoms.He consumed chicken tenders, eggs, omelets, cereal, and a burger. He requests a list of foods to avoid. Diet: The patient consumed chicken tenders, eggs, omelets, cereal, and a burger. Recreational Drugs: The patient smoked a joint two weeks ago but has abstained since then. 10 point review of systems is otherwise [...] NO MORE THAN TWO WEEKS A MONTH methylPREDNISolone (MEDROL DOSPACK) 4 mg, SEE ADMIN INSTRUCTIONS predniSONE (DELTASONE) 20 mg, SEE ADMIN INSTRUCTIONS Retin-A 0.05 % Cream APPLY PEA-SIZED AMOUNT AT NIGHT TO CLEAN DRY FACE, CHEST, AND BACK Ventolin HFA 90 mcg/actuation inhaler 2 Puffs, EVERY 2 HOURS Zepbound 7.5 mg, subCUT, EVERY 7 DAYS No past surgical history on file. Past social, family, and medical history reviewed. BP 128/70 Pulse 100 Temp 97.9 ??F (36.6 ??C) Resp 18 Ht 5' 8 (1.727 m) Wt 131.2 kg (289 lb 3.2 oz) SpO2 99% BMI 43.97 kg/m?? Physical Exam Constitutional: General: He is not in acute distress. Appearance: Normal appearance. He is not ill-appearing. HENT: Head: Normocephalic. Right Ear: External ear [...] and Affect: Mood normal. Behavior: Behavior normal. ICD-10-CM ICD-9-CM 1. Allergic reaction to alpha-gal T78.19XA 693.1 2. Sensation of swollen throat R68.89 784.99 3. Morbid obesity with body mass index (BMI) of 40.0 or higher ([facility]) E66.01 278.01 Assessment & Plan Alpha-gal syndrome: - Recent symptoms likely due to alpha-gal syndrome, given dietary intake of dairy products and hamburger. - No adverse reactions on a lower dose of Zepbound, suggesting Zepbound medication may not be the cause. - Provided a list of alpha gal foods to avoid, including milk, cheese, and beef. - Advised to consume chicken, fish, and seafood. - Informed that alpha-gal syndrome is not lifelong and recovery is possible, but re-exposure to ticks could prolong recovery. - If symptoms persist despite dietary modifications, inform the clinic. JACKLYN Sandra The author of this note, patient (or authorized in store representative), and all other persons present consent to the audio recording of this visit for charting documentation purposes. This note was automatically generated, edited by a [employer] Intern, and finalized by JOHANNA Cramer. RTISEMENT COMPOSITOR documented in this encounter Plan of Treatment Upcoming Encounters Date Type Department Care Team (Late st Contact Info) Description 01/26/2025 12:00 PM ADVERTISEMENT COMPOSITOR Office Visit [facility] [address] [place] [address] May, JOHANNA [address] [place] [address] 04/10/2025 2:00 PM ADVERTISEMENT COMPOSITOR Office Visit [facility] [address] [place] [address] Layton Rojas FNP [address] [place] [phone] documented as of this encounter Visit Diagnoses Diagnosis Allergic reaction to alpha-gal- Primary Sensation of swollen throat Other symptoms involving head and neck Morbid obesity with body mass index (BMI) of 40.0 or higher ([facility]) Benign hypertension Essential hypertension, benign documented in this encounter Additional Health Concerns Assessment Noted Time PHQ-9 Depression Total Score: 6 12/02/19 18 8:00 AM CDT documented as of this encounter Care Teams Truck Greaser Relationship Specialty Start Date End Date Moon Amaral DO [address] [place] [phone] PCP - General Family Practice 01/13/10 documented as of this encounter
--- OUTSIDE RECORDS SUMMARY | 2025-01-23 18:16 | XMS_ITS | Encounter Summary ---
Author Organization [facility] Address [address] [place] [address] Care Team Providers Care Real Estate Underwriter Name Role Phone Moon Amaral DO Primary Care Provider [phone]- [phone] Reason for Visit * Reason Onset Date Comments Medication Refill 01/18/2025 Encounter Details Date Type Department Care Team ([facility] st Contact Info) Description 01/18/2025 Refill [facility] [place] [address] [place] [address] Layton Rojas [facility] [address] [place] [address] Allergic reaction to alpha-gal Social [...] on file Legal Sex Male 8:08 AM COW TENDER Gender Identity Not on file Sexual Orientation Not on file documented as of this encounter Miscellaneous Notes * Telephone Encounter - Victoria Cooper LPN - 01/19/2025 7:59 AM CST Medication Refill Request Last Fill Date:08/11/24 with 2 RF ROWAN 01/07/25 Recent and Future Visits: Recent Visits Date Type Provider Dept 01/07/25 Office Visit Layton Rojas, [facility] [place] 01/02/25 Office Visit Aparicio, May, [facility] [place] 11/25/24 Office Visit Layton Rojas, [facility] [place] 10/24/24 Office Visit Layton Rojas, [facility] [place] 08/27/24 Office Visit Layton Rojas, [facility] [place] 08/05/24 Office Visit Layton Rojas, [facility] [place] 07/25/24 Office Visit Layton Rojas, [facility] [place] 06/02/24 Office Visit Aparicio, May, [facility] [place] 05/27/24 Office Visit Layton Rojas, [facility] [place] 04/23/24 Office Visit Layton Rojas, [facility] [place] Showing recent visits within past 540 days with a meds authorizing provider and meeting all other requirements Future Appointments Date Type Provider Dept 01/20/25 Appointment Layton Rojas, [facility] [place] 04/10/25 Appointment Layton Rojas, [facility] [place] Showing future appointments within next 365 days with a meds authorizing provider and meeting all other requirements Last Labs: Lab Results Component Value Date/Time CREAT 0.82 08/05/2024 01:44 PM BUN 9 08/05/2024 01:44 PM NA 140 08/05/2024 01:44 PM K 3.6 08/05/2024 01:44 PM CL 103 08/05/2024 01:44 PM CO2 29 08/05/2024 01:44 PM GFR 127 08/05/2024 01:44 PM [place] [facility] - 2001 Check and review of the [place] PDMP performed on 01/19/2025 at 8:00 AM was TENDER documented in this encounter Plan of Treatment Upcoming Encounters Date Type Department Care Team (Late st Contact Info) Description 01/26/2025 12:00 PM COW TENDER Office Visit [facility] [address] [place] [facility] [place] [address] AparicioMay, [facility] [address] [place] [address] 04/10/2025 2:00 PM COW TENDER Office Visit [facility] [address] [place] [facility] [place] [phone] Sara Rojasradhames Jose Carlos, [facility] [address] [place] [place] [address] documented as of this encounter Visit Diagnoses Diagnosis Allergic reaction to alpha-gal documented in this encounter Additional Health Concerns Assessment Noted Time PHQ-9 Depression Total Score: 6 12/02/19 18 8:00 AM CDT documented as of this encounter Care Teams Real Estate Underwriter Relationship Specialty Start Date End Date Moon Amaral DO [address] [place] [address] PCP - General Family Practice 01/13/10 documented as of this encounter
--- OUTSIDE RECORDS SUMMARY | 2025-01-23 18:16 | XMS_ITS | Clinical Summary ---
Author Organization 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
--- OUTSIDE RECORDS SUMMARY | 2025-01-23 18:16 | XMS_ITS | Encounter Summary ---
Author Organization [facility] Address [address] [place] [address] Care Team Providers Care Dock Guard Name Role Phone Moon Amaral DO Primary Care Provider [phone]- [phone] Encounter Details Date Type Department Care Team ([facility] Contact Info) Description 12/14/2014 Ancillary Orders [facility] Pre-Registration [place] CALL TO MAKE APPOINTMENT ONLY [address] [place] [address] Malik Brian Jr., MD [address] [address] Essential hypertension, benign (Primary Dx) Social History Tobacco Use Types Packs/Day Years Used Date Smoking Tobacco: Never Alcohol Use Standard Drinks/Week Comments Not Asked 0 (1 standard drink = 0.6 oz pur e alcohol) Sex and Gender Information Value Date Recorded Sex Assigned at Not on file Legal Sex Male 7:22 AM HYDRAULIC ENGINEER Gender Identity Not on file Sexual [...] documented as of this encounter Care Teams Dock Guard Relationship Specialty Start Date End Date Moon Amaral DO [address] [place] [address] PCP - General Family Practice 01/13/10 documented as of this encounter
--- OUTSIDE RECORDS SUMMARY | 2025-01-23 18:16 | XMS_ITS | Data Portability ---
Author Organization [facility] Paul Mckenzie [facility] Address [address] [address] Assessment No assessment recorded. Plan of Treatment [...] Name and Address Organization Details Recorded Time 35126 Product containin g penicilli n (product) medicatio n Not available Not available Not available 09/09/2022 03406 8001 SNOMED Comme nt: Recor ded 01/29 5:47P M by Rachelle Juarez LPN, Offic e Visit ; Promo khalida; Marcelino valenzuela ce: *; ; Not Available [facility] 3 02:25:16 18836 aspirin medicatio n Not available Not available Not available 09/09/2022 1191 RxNorm Comme nt: Recor ded 01/29 5:47P M by Rachelle Juarez LPN, Offic e Visit ; Promo khalida; Marcelino valenzuela ce: *; ; Not Available [facility] 3 02:25:16 Medications Name Sig [...] Address Organization Details Last Updated DateTime 4 871645. 63 g 47.1 kg/m2 172.72 cm 19 /min 91 /min 97 % FELICITA RUST, [facility] 4 14:06:09 Social History None recorded. Functional Status None recorded. Mental Status None recorded. Family History Nothing Reported Notes:MVP, cancer; cervical, breast, anxiety, hypertension Medical History No medical history recorded. Past Encounters Encounter ID Performer Location Encounter Start Date Encounter Closed Date Diagnosis/Indication Diagnosis SNOMED-CT Code Diagnosis ICD10 Code Diagnosis IMO Codes Diagnosis Note [id number] JOHANNA PEREA [facility] ([facility]) [address] [place] [phone] 09/15/2023 13:52:30 09/15/2023 15:10:19 Pain due to dental trauma [id number] R52 Continue tramadol. Add IBU as needed [...] Burgos Member ID Guarantor Name 09/15/2023 1 [facility] (MEDICAID REPLACEMENT - HMO) ANASTASIIA Cedeno [id number] Agustin Cedeno Notes Date Note Type Note [...] He's taken Tylenol as well. JOHANNA PEREA [address] [place] [address], [phone], [facility] 09/15/2023 14:42:53
--- OUTSIDE RECORDS SUMMARY | 2025-01-23 18:16 | XMS_ITS | Encounter Summary ---
Author Organization [facility] Address [address] [place] [address] Care Team Providers Care Air Drier Name Role Phone Moon Amaral DO Primary Care Provider +1 [phone] Encounter Details Date Type Department Care Team (Late Contact Info) Description 01/12/2025 Orders Only [facility] Health Information Management [place] [address] [place] [address] Provider, Abstract NO ADDRESS ON FILE Social [...] on file Legal Sex Male 8:08 AM DEMOLITIONIST Gender Identity Not on file Sexual Orientation Not on file documented as of this encounter Plan of Treatment Upcoming Encounters Date Type Department Care Team (Late Contact Info) Description 01/26/2025 12:00 PM DEMOLITIONIST Office Visit [facility] Family [facility] [place] [address] [place] [phone] May, NEUROPSYCHOLOGY MEDICAL CONSULTANT [address] [place] [phone] 04/10/2025 2:00 PM DEMOLITIONIST Office Visit [facility] [place] [address] [place] [address] Layton Rojas, NEUROPSYCHOLOGY MEDICAL CONSULTANT [address] [place] [facility] [phone] documented as of this encounter Procedures Procedure Name Priority Date/Time Associated Diagnosis Comments COMPREHENSIVE METABOLIC PANEL Routine 01/09/2025 1:56 PM DEMOLITIONIST documented in this encounter Results * COMPREHENSIVE METABOLIC PANEL (01/09/2025 1:56 PM DEMOLITIONIST) Blood us Abstract Provider CHEMISTRY ORDERABLES Final Res ult documented in this encounter Visit Diagnoses Not on filedocumented in this encounter Additional Health Concerns Assessment Noted Time PHQ-9 Depression Total Score: 6 12/02/19 18 8:00 AM CDT documented as of this encounter Care Teams Air Drier Relationship Specialty Start Date End Date Moon Amaral DO [address] [place] [phone] PCP - General Family Practice 01/13/10 documented as of this encounter
--- OUTSIDE RECORDS SUMMARY | 2025-01-23 18:16 | XMS_ITS | Clinical Summary ---
Author Organization [facility] Address [address] [place] [address] Care Team Providers Care Behavioral Geneticist Name Role Phone Moon Amaral DO Primary Care Provider Allergies Active Allergy Reactions Criticality Noted Date Comments Alpha-Gal (Laothvxez-Xprvm-0,3-Ga lactose) Abdominal Pain High 08/11/2024 Aspirin Unknown [...] FACE, CHEST, AND BACK 06/20/19 25 Active amLODIPine (NORVASC) 5 mg tabletIndications [...] daily. 90 Tablet 3 01/08/20 25 Active EPINEPHrine (EPIPEN) 0.3 mg/0.3 mL Auto-InjectorIndi cations:Allergic reaction to alpha-gal Inject 0.3 mL (0.3 mg) by intramuscular injection 1 time daily as needed for Anaphylaxis. 2 Each 2 01/20/20 25 Active predniSONE (DELTASONE) 20 mg tablet Take 20 mg by mouth see administration instructions. TAKE 3 TABLETS BY MOUTH ONCE DAILY FOR 3 DAYS, THEN 2 TABLETS DAILY FOR 3 DAYS, THEN TAKE 1 TABLET DAILY FOR 3 DAYS, THEN ONE-HALF TABLET BY MOUTH DAILY FOR 4 DAYS 01/19/20 25 Active methylPREDNISolon e (MEDROL DOSPACK) 4 mg Tablets, Dose Pack Take 4 mg by mouth see administration instructions. 01/19/20 25 Active Ventolin HFA 90 mcg/actuation inhaler 2 Puffs by See Admin Instructions route every 2 hours. FOR THE NEXT 3 DAYS 01/19/20 25 Active EPINEPHrine (EPIPEN) 0.3 mg/0.3 mL Auto-InjectorIndi cations:Allergic reaction to alpha-gal Inject 0.3 mL (0.3 mg) by intramuscular injection 1 time daily as needed for Anaphylaxis. 2 Each 2 08/12/19 25 025 Disconti nued(Albinao yanelis) tirzepatide, weight loss, (Zepbound) 5 mg/0.5 mL Pen InjectorIndicatio ns:Morbid obesity with body mass index (BMI) of 40.0 or higher (CMS/HCC) Inject 0.5 mL (5 mg) by subcutaneous injection every 7 days. 6 mL 3 11/26/19 25 025 Disconti nued(Dos e/form adjustme nt) ARIPiprazole (Abilify) 5 mg tabletIndications :Bipolar 1 disorder (CMS/HCC),Dentofacial Orthopedics Dentist y hallucinations Take 1 Tablet (5 mg) by mouth daily. 30 Tablet 11 11/26/19 25 025 Disconti nued(Dos e/form adjustme nt) Active Problems Problem Noted Date Diagnosed Date Sensation of swollen throat 01/20/2025 Auditory hallucinations 11/25/2024 Allergic reaction to alpha-gal [...] Encounters Date Type Department Care Team Description 01/20/2025 4:00 PM AFRICAN STUDIES PROFESSOR Office Visit [facility] [address] [facility] [place] [phone] Layton Rojas FNP Allergic reaction to alpha-gal (Primary Dx); Sensation of swollen throat; Morbid obesity with body mass index (BMI) of 40.0 or higher ([facility]); Benign hypertension 01/18/2025 Refill [facility] [address] [facility] [place] [phone] Layton Rojas FNP Allergic reaction to alpha-gal 01/12/[address] [facility] Health Information Management [place] [id number] [facility] [address] Provider, Abstract 01/07/2025 12:20 PM AFRICAN STUDIES PROFESSOR Office Visit [facility] [address] [place] [address] Layton Rojas, OPTICAL MODEL MAKER AND TESTER Morbid obesity with body mass index (BMI) of 40.0 or higher (CMS/HCC) (Primary Dx); Benign hypertension; Bipolar 1 disorder 01/02/2025 3:20 PM AFRICAN STUDIES PROFESSOR Office Visit [facility] [address] [place] [address] Aparicio, May, OPTICAL MODEL MAKER AND TESTER Palpitations (Primary Dx) 12/31/2024 Telephone [facility] [address] [place] [address] Moon Amaral, DO Patient Communication 12/23/2024 External Device Data STL ABSTRACTION Provider, Abstract 12/23/2024 External Device Data STL ABSTRACTION Provider, Abstract 12/23/2024 External Device Data STL ABSTRACTION Provider, Abstract 11/25/2024 2:20 PM CDT Office Visit [facility] [address] [place] [address] Layton Rojas, OPTICAL MODEL MAKER AND TESTER Morbid obesity with body mass index (BMI) of 40.0 or higher (CMS/HCC) (Primary Dx); Bipolar 1 disorder; Auditory hallucinations 11/04/2024 External Device Data STL ABSTRACTION Provider, Abstract 11/04/2024 External Device Data STL ABSTRACTION Provider, Abstract 11/04/2024 External Device Data STL ABSTRACTION Provider, Abstract 10/28/2024 External Device Data STL ABSTRACTION Provider, Abstract 10/24/2024 1:40 PM CDT Office Visit [facility] [address] [place] [address] Layton Rojas, OPTICAL MODEL MAKER AND TESTER Morbid obesity with body mass index (BMI) of 40.0 or higher (CMS/HCC) (Primary Dx); Benign hypertension; Bipolar 1 disorder; Attention deficit hyperactivity disorder (ADHD), combined type; At risk for sleep apnea from Last 3 Months Immunizations Immunization Administration [...] PERTUSSIS, HEPATITIS B, AND INACTIVATED POLIOVIRUS VACCINE ([id number]), 0.5ML, IM 09/15/2003 (RECOMBIVAX HB/ENGERIX-B)(0- 19 YRS) [...] on file Legal Sex Male 8:08 AM AFRICAN STUDIES PROFESSOR Gender Identity Not on file Sexual Orientation Not on file Last Filed Vital Signs Vital Sign Reading Time Taken Comments Blood Pressure 128/70 01/20/2025 3:52 PM AFRICAN STUDIES PROFESSOR Pulse 100 01/20/2025 3:52 PM AFRICAN STUDIES PROFESSOR Temperature 36.6 C (97.9 F) 01/20/2025 3:52 PM AFRICAN STUDIES PROFESSOR Respiratory Rate 18 01/20/2025 3:52 PM AFRICAN STUDIES PROFESSOR Oxygen Saturation 99% 01/20/2025 3:52 PM AFRICAN STUDIES PROFESSOR Inhaled Oxygen Concentration - - Weight 131.2 kg (289 lb 3.2 oz) 01/20/2025 3:52 PM AFRICAN STUDIES PROFESSOR Height 172.7 cm (5' 8 ) 01/20/2025 3:52 PM AFRICAN STUDIES PROFESSOR Body Mass Index 43.97 01/20/2025 3:52 PM AFRICAN STUDIES PROFESSOR Plan of Treatment Upcoming Encounters Date Type Department Care Team (Late st Contact Info) Description 01/26/2025 12:00 PM AFRICAN STUDIES PROFESSOR Office Visit [facility] [address] [place] [phone] Alessandra, May, OPTICAL MODEL MAKER AND TESTER [address] [facility] [place] [phone] 04/10/2025 2:00 PM AFRICAN STUDIES PROFESSOR Office Visit [facility] [address] [facility] [place] [phone] Layton Rojas, OPTICAL MODEL MAKER AND TESTER [address] [place] [facility] [place] [phone] Health Maintenance Due Date Last Done Comments [...] COMPREHENSIVE METABOLIC PANEL Routine 01/09/2025 1:56 PM AFRICAN STUDIES PROFESSOR US ABDOMEN COMPLETE Routine 08/07/2017 1 0:35 AM CDT Abdominal pain, acute, right upper quadrant from Last 3 Months or Most Recently Relevant to Health Maintenance Results * COMPREHENSIVE METABOLIC PANEL (01/09/2025 1:56 PM AFRICAN STUDIES PROFESSOR) Blood us Abstract Provider CHEMISTRY ORDERABLES Final [...] evidence of acute cholecystitis or biliary obstruction. [id number] Narrative Procedure Note Otto Sanchez MD - [...] evidence of acute cholecystitis or biliary obstruction. [id number] us Moon Amaral DO ORDERABLES Final Resul t from Last 3 Months or Most Recently Relevant to Health Maintenance Insurance [address] [place] [id number] [facility] [place] [id number] Care Teams Behavioral Geneticist Relationship Specialty Start Date End Date Moon Amaral DO [address] [facility] [place] [phone] PCP - General Family Practice 01/13/10
--- OUTSIDE RECORDS SUMMARY | 2025-01-23 18:16 | XMS_ITS | Patient Health Record ---
Author Organization [facility] Address [address] [place] [address] Care Team Providers Care Rock Splitter Name Role Phone Emil Sam Primary Care [...] Insured Coverage Start Date Coverage End Date [facility] Community Plan of [place] [address] [place] [address] [id number] Agustin Cedeno Self - patient is the insured [facility] Community Plan Dental [address] [place] [address] [id number] Wilian Agustin Self - patient is the insured Medical (General) History Medical History History ICD Code ADHD High blood Pressure
[2025-01-23 18:21] VITALS: BP 128/65; PULSE 97; RESP 17; TEMP 36.7; O2SAT 97; BMI 41.0
--- NOTE | 2025-01-23 18:36 | ECG_ITS ---
[facility] Test Date: 2025-01-23 Pat Name: Agustin Cedeno Department: Room: Gender: Male Filler Machine Operator: : 2000 Requested By: Moon Adorno Order Number: [id number] Gene MD: Sarabjit Hagen M.D. Measurements Intervals [place] Rate: 91 P: 43 [place]: 159 QRS: 30 QRSD: 89 T: 40 QT: 324 QTc: 400 Interpretive Statements SINUS RHYTHM Compared to ECG 01/09/2025 23:52:05 Sinus tachycardia no longer present NO SIGNIFICANT CHANGE Electronically Signed On 01-24-2025 19:50:13 [facility]ER by Sarabjit Hagen M.D. [email or web address]
--- NOTE | 2025-01-23 18:59 | XRR_ITS ---
PROCEDURE INFORMATION: Exam: XR Soft Tissue Neck Exam date and time: 01/23/2025 7:47 PM Age: 24 years old Clinical indication: Other: Laryngeal edema; Additional info: Laryngeal edema, with lateral please TECHNIQUE: Imaging protocol: Radiologic exam of the soft tissues of the neck. 1 image(s) are submitted. COMPARISON: CR (NECK, ) 01/09/2025 6:05 PM FINDINGS: Airway: Normal. No abnormal narrowing. Soft tissues: Normal. Normal epiglottis. Bones/joints: Unremarkable. XR/XR soft tissue neck [id number] IMPRESSION: No acute findings. No change since previous study. No evidence of laryngeal edema. The epiglottis is unremarkable.
--- NOTE | 2025-01-23 18:59 | XRR_ITS ---
PROCEDURE INFORMATION: Exam: XR Chest Exam date and time: 01/23/2025 7:46 PM Age: 24 years old Clinical indication: Shortness of breath; Additional info: Short of breath TECHNIQUE: Imaging protocol: Radiologic exam of the chest. 1 image(s) are submitted. Views: 1 view. COMPARISON: CR (CHEST, ) 01/09/2025 11:54 PM FINDINGS: Lungs: Unremarkable. No consolidation. Pleural spaces: Unremarkable. No pleural effusion. No pneumothorax. Heart/Mediastinum: Unremarkable. No cardiomegaly. Bones/joints: Unremarkable. XR/XR chest 1V portable [id number] IMPRESSION: No acute findings.
[2025-01-23 19:32] VITALS: BP 142/95; PULSE 93; RESP 17; O2SAT 95
--- NOTE | 2025-01-23 19:37 | ED_ITS ---
HPI - SOB/Dyspnea General: Chief Complaint: Shortness of Breath/Dyspnea Stated Complaint: throat swelling and hard to breath Time Seen by Provider: 01/23/25 18:58 History of Present Illness: HPI Narrative: Patient is a 24-year-old gentleman with history of asthma, alpha gal, presents to the emergency room with swelling of his throat. This was worsening today. He states he has not had any cheating on his alpha-gal. He admits to shortness of breath, occasional nonproductive cough, wheezing. He states his asthma has been mild. He has had worsening issues lately. He did go to his primary care physician to follow-up and have his alpha gal rechecked. He states previously his number was low. No nausea, vomiting. No sick exposure. Associated symptoms: Deny abdominal pain, chest congestion, chest pain, extr emity pain, fever(s), hemoptysis, lightheadedness, nausea, orthopnea, palpitations, syncope or vomiting Related Data Home Medications ?Medication ?Instructions ?Recorded ?Confirmed amlodipine 10 mg tablet 10 mg PO DAILY 12/28/2012/13 amlodipine 5 mg tablet 5 mg 12/17/22 12/27/23 Previous Rx's ?Medication ?Instructions ?Recorded lidocaine HCl 2 % mucosal solution 1 applic mucous mem brane Q4H PRN 01/05/24 (Lidocaine Viscous) pain #100 mL albuterol sulfate 90 mcg/actuation 2 inh inhalation Q4 H #6.7 grams 01/18/25 aerosol inhaler (Ventolin HFA) doxycycline hyclate 100 mg capsule 100 mg PO BID 7 day s #14 caps 01/18/25 prednisone 20 mg tablet 60 mg (3 x 20 mg) PO DAILY # 20 tabs 01/18/25 azithromycin 250 mg tablet See Rx Instructions PO .COM PLEX #6 01/23/25 (Zithromax Z-Hayder) tabs methylprednisolone 4 mg tablets in See Rx Instructions PO .COMPLEX 01/23/25 a dose pack (Medrol (Hayder)) #21 ea Allergies Allergy/AdvReac Type Severity Reaction Status Date / Time Penicillins Allergy Unknown Verified 01/23/25 18:31 Review of Systems General: Reports: 10 or more systems reviewed and unremarkable except in HPI and below Const: Denies: fever(s), chills, body aches, fatigue or malaise Eyes: Denies: change in vision, blurry vision, photophobia, floaters or seeing flashes ENMT: Reports: throat pain (Improved from earlier.) and odynophagia; Denies: uvular edema, enlarged tonsils, hoarseness, mouth pain, swelling of lips/tongue, oral sores, ear or mastoid pain, nasal discharge, nasal congestion or sinus pain Card: Denies: chest pain, palpitations, irregular heart rhythm, edema, swelling of feet/ankles, lightheadedness, syncope, pre-syncope, dyspnea on exertion, orthopnea, leg pain with exertion or acrocyanosis Resp: Reports: dyspnea (Improved from earlier.) and non-productive cough; Denies: productive cough, wheezing, stridor, pain on inspiration, change in phlegm color, hemoptysis or chest congestion GI: Denies: abdominal pain, nausea, vomiting or diarrhea : Denies: flank pain or difficulty urinating Musc: Denies: neck pain, back pain, extremity pain, extremity swelling, joint pain or joint swelling Skin/Breast: Denies: rash Neuro: Denies: headache(s), numbness in extremities, weakness in extremities or sensory changes Psych: Denies: anxiety or depression PFSH ED PFSH: Medical History (Updated 01/23/25 @ 20:36 by TIMMY Lee) Psoriasis Family History Mother Heart failure Father AAA (abdominal aortic aneurysm) Grandfather AAA (abdominal aortic aneurysm) Social History Smoking and tobacco/nicotine status: never used tobacco/nicotine Alcohol intake: never Substance/Drug Use: never Physical Exam Const: COMMON NORMALS: no acute distress GENERAL APPEARANCE: cooperative; not ill appearing and not frail appearing HENMT: COMMON NORMALS: normocephalic, atraumatic and Normal external nose present HEAD & SCALP: normocephalic and atraumatic FACE & SINUS: normal facial exam and face symmetric NOSE: Normal external nose present THROAT: no uvular edema Eye: COMMON NORMALS: Equal, round and reactive pupils present and EOMs intact bilaterally PUPIL: Yes Equal, round and reactive pupils present Neck/C-Spine: GENERAL: Yes trachea midline Chest: CHEST: Yes Symmetrical chest wall rise Resp: COMMON NORMALS: normal respiratory effort, No retractions and No use of accessory muscles EFFORT & INSPECTION: Yes able to speak in complete sentences AUSCULTATION: bronchial breath sounds diffuse Cardio: COMMON NORMALS: regular rate and regular rhythm RATE: regular rate RHYTHM: regular rhythm GI: COMMON NORMALS: Normal to inspection, nondistended, normoactive bowel sounds present Extremity: COMMON NORMALS: no pedal edema Neuro: VERONICA COMA SCALE: document GCS findings Veronica coma scale eye opening: Spontaneous Bonita coma scale verbal response: Orientated Veronica coma scale motor response: Obey commands Veronica coma scale total score: 15 SENSORY EXAM: Yes extremities (intact) Psych: COMMON NORMALS: speech normal SPEECH: Yes normal speech Skin: NARRATIVE SKIN EXAM: Scattered psoriasis lesions Course Vital Signs: Vital signs: Vital Signs Temperature 98.2 F 01/23/25 20:50 Pulse Rate 99 01/23/25 20:50 Respiratory Rate 17 01/23/25 20:50 Blood Pressure 132/85 01/23/25 20:50 Pulse Oximetry 96 01/23/25 20:50 Oxygen Delivery Me thod Room Air 01/23/25 18:21 MDM - SOB/Dyspnea Medical Decision Making Patient is a 24-year-old male with history of asthma, presents to the emergency room with the feeling that his throat is closing, shortness of breath. He had bronchial breath sounds, however no wheezes, no crackles, and good aeration was noted. A lateral neck and AP x-ray was done, that did not show any laryngeal edema. Chest x-ray was negative for acute pneumonia. Strep was negative for acute pathogen. Will prescribe antibiotics since this has been ongoing for secondary prevention with patient with asthma, and add Medrol Dosepak. All of this explained patient's understanding Medical Records I reviewed the patient's medical records. Lab Data I reviewed the patient's lab results. Labs/Radiology: Radiology Impressions Chest X-Ray 01/23/25 18:59 IMPRESSION: No acute findings. Soft Tissue Neck X-Ray 01/23/25 18:59 IMPRESSION: No acute findings. No change since previous study. No evidence of laryngeal edema. The epiglottis is unremarkable. Laboratory Results Group A Strep Rapid Negative (Negative) 01/23/25 19:45 All radiology interpretation(s) finalized by discharge Discharge Plan Discharge Patient Disposition: Home Clinical Impression: Pharyngitis Qualifiers: Pharyngitis/tonsillitis etiology: unspecified etiology Qualified Code(s): J02.9 - Acute pharyngitis, unspecified Asthma exacerbation Qualifiers: Asthma severity: mild Asthma persistence: persistent Qualified Code(s): J45.31 - Mild persistent asthma with (acute) exacerbation Condition: Stable Prescriptions: New azithromycin [Zithromax Z-Hayder] 250 mg tablet See Rx Instructions PO .COMPLEX Qty: 6 0RF Rx Instructions: For 250 mg dose pack: take 500 mg today (day 1), then 250 mg for 4 days (days 2-5) methylprednisolone [Medrol (Hayder)] 4 mg tablets,dose pack See Rx Instructions PO .COMPLEX Qty: 21 0RF Rx Instructions: for 6 days No Action amlodipine 10 mg tablet 10 mg PO DAILY doxycycline hyclate 100 mg capsule 100 mg PO BID 7 Days Qty: 14 0RF prednisone 20 mg tablet 60 mg PO DAILY Qty: 20 0RF Rx Instructions: 3 tabs (60 mg) x 3 days. 2 tabs (40 mg) x 3 days. 1 tab (20 mg) x 3 days. 1/2 tab (10 mg) x 4 days albuterol sulfate [Ventolin HFA] 90 mcg/actuation HFA aerosol inhaler 2 inh inhalation Q4H Qty: 6.7 0RF Rx Instructions: Please schedule every 4 hours for the next 3 days with up to every every 2 as needed. Please provide patient with a spacer/AeroChamber amlodipine 5 mg tablet 5 mg lidocaine HCl [Lidocaine Viscous] 2 % solution 1 applic mucous membrane Q4H PRN (Reason: pain) Qty: 100 0RF Discharge Orders: Discharge ED (Routine); Ordered 01/23/25 Ordered By: Su Whitaker Referrals: Moon Amaral DO [Primary Care Provider, Family Practice] Patient Instructions: Asthma - Adult, Pharyngitis (ED), Patient Portal & Jus Instructions Activity Restrictions/Additional Instructions: - At the pharmacy: Medrol Dosepak. Powerful steroids. Use as directed. Azithromycin. Powerful antibiotic. - Utilize probiotic to avoid infectious diarrhea or eat active culture yogurt - Follow-up with your doctor as planned - Return to ED with worsening shortness of breath Thank you for choosing [facility] for your healthcare needs today. You have been screened and evaluated and felt safe for discharge. Health conditions do change or evolve sometimes and as such it is important that you follow up with your Primary Doctor to be re checked, 3-5 days is a general good time frame for follow up. You are always welcome to return to the ED for re assessment if your symptoms are worsening or you have new concerns Stand Alone Forms: Work/School Release Print Language: Congolese Coding Level of Care Code ED Grain Operations Manager for Donna Perry
[2025-01-23 19:59] LABS: Rapid Strep A Test Negative (Negative)
[2025-01-23 20:10] VITALS: BP 132/85; PULSE 83; RESP 17; O2SAT 97
[2025-01-23 20:50] VITALS: BP 132/85; PULSE 99; RESP 17; TEMP 36.8; O2SAT 96
== END 2025-01-23 20:51 | disposition home or self-care (01) ==
PROVIDERS: Emergency Provider Physician Assistant; PCP Family Medicine
DX: J02.9 Acute pharyngitis, unspecified (principal); J45.31 Mild persistent asthma with (acute) exacerbation
CPT/HCPCS: 70360; 71045; 87081; 87880; 93005; 96372; 99285; J1100